=== PATIENT | male | born 1950 | race Caucasian/White ===

== ENCOUNTER → 2018-01-30 09:31 | Outpatient (CLI) | payer BC, SELFPAY ==
--- NOTE | 2018-01-30 09:53 | RAD_ITS ---
HISTORY: PRE-OP FOR SURGERY OCCURING IN MARCH EXAM: XR Chest 2 Views: COMPARISON: None FINDINGS: Normal heart size. Hyperinflation with increased retrosternal airspace compatible with COPD. No vascular congestion, pleural effusion, or acute pulmonary infiltration. Atherosclerotic thoracic aorta. No pneumothorax. RAD/Chest PA and Lateral IMPRESSION: 1. No acute cardiopulmonary disease. 2. COPD. at 0703 Reported and signed by: Andrew Molina MD Electronically Signed: Andrew Molina, at 7:01 EST Tel , Service support ,
--- NOTE | 2018-01-30 10:05 | EKG12_ITS ---
Test Reason : PREOP Blood Pressure : / mmHG Vent. Rate : 091 BPM Atrial Rate : 091 BPM P-R Int : 136 ms QRS Dur : 080 ms QT Int : 352 ms P-R-T Axes : 067 -30 035 degrees QTc Int : 432 ms Sinus rhythm with occasional Premature ventricular complexes Left axis deviation Abnormal ECG Confirmed by HANNA SERRATO, ERNA ([id number]), editor managing newspaper OMAR PHELAN ([id number]) on 02/03/2018 2:19:54 PM Referred By: Holden Phelan Confirmed By:ERNA FERREIRA MD
--- OUTSIDE RECORDS SUMMARY | 2018-03-27 04:49 | XMS RPT_ITS ---
:1950 Author Organization OHIP Care Team Providers Name Role Phone Rody Patel Attending Unavailable Andrew Hermosillo Referring Unavailable Andrew Hermosillo Primary Care Unavailable SHAUN DIAZ Attending Unavailable Andrew Hermosillo Referring Unavailable Andrew Hermosillo Primary Care Unavailable SHAUN DIAZ Attending Unavailable Andrew Hermosillo Referring Unavailable NadineanAndrew Primary Care Unavailable SHAUN DIAZ Attending Unavailable Andrew Hermosillo Referring Unavailable NadineanAndrew Primary Care Unavailable SHAUN DIAZ Attending Unavailable Andrew Hermosillo Referring Unavailable Jerryneran, Andrew Primary Care Unavailable Holden Phelan Attending Unavailable Holden Phelan Referring Unavailable Andrew Hermosillo Primary Care Unavailable Markel Ferreira Attending Unavailable Holden Phelan Referring Unavailable PROBLEMS PROBLEMS DATE TYPE CONDITION / CODE ATTENDING STATUS SOURCE Unknown Z79.899 - Other long Holden Phelan Active [place] 8 term (current) drug Community therapy / Hospital Z79.899(ICD-10) Repository Unknown Z01.811 - Encounter Holden Phelan Active [place] 8 for preprocedural [facility] examination / Repository Z01.811(ICD-10) Unknown R94.31 - Abnormal [place], Active [place] 8 electrocardiogram [facility] [ECG] [EKG] / Hospital R94.31(ICD-10) Repository Admitting Unil inguinal hernia, [facility] [place] 8 Diagnosis w/o obst or gangr, not M System spcf as recur / Repository K40.90(ICD-10) 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, unsp / Repository D21.6(ICD-10) Admitting Epidermal cyst / [facility] [place] 8 Diagnosis L72.0(ICD-10) M System Repository Admitting Unspecified [facility] [place] 8 Diagnosis osteoarthritis, M System unspecified site / Repository M19.90(ICD-10) Admitting Nicotine dependence, [facility] [place] 8 Diagnosis cigarettes, M System uncomplicated / Repository F17.210(ICD-10) Admitting Encounter for other [facility] [employer] Diagnosis preprocedural M System examination / Repository Z01.818(ICD-10) Admitting Follicular cyst of the [facility] [place] 8 Diagnosis skin and subcutaneous M System tissue, unsp / Repository L72.9(ICD-10) Admitting Right [facility] pain [facility] [place] [facility] Diagnosis / N50.811(ICD-10) System Repository Admitting Unspecified abdominal Rody Patel [place] 8 Diagnosis hernia without System obstruction or Repository gangrene / K46.9(ICD-10) PROCEDURES PROCEDURES No Procedure Records FoundRESULTS RESULTS 12 LEAD ELECTROCARDIOGRAM Observed: 02/03/2018 Status: F Source: [place] 2:20 PM [facility] REPOSITORY [facility] Cardiovascular Services [address] [place] [address] 12 Lead EKG 01/30/18 1012 MR#: [id number] Acct: [id number] Name: REGGIE PHELAN R Rep #: [id number] : 1950 67 From: Markel Ferreira MD Attending Dr: Holden Phelan MD Status: REG CLI Ordering Dr: Holden Phelan MD Date: 01/30/18 Location: [facility] Sex: M C Admitted: Test Reason : PREOP Blood Pressure : / mmHG Vent. Rate : 091 BPM Atrial Rate : 091 BPM P-R Int : 136 ms QRS Dur : 080 ms QT Int : 352 ms P-R-T Axes : 067 -30 035 degrees QTc Int : 432 ms Sinus rhythm with occasional Premature ventricular complexes Left axis deviation Abnormal ECG Confirmed by HANNA SERRATO, MARKEL ([id number]), manuscript editor OMAR PHELAN ([id number]) on 02/03/2018 2:19:54 PM Referred By: Holden Phelan Confirmed By:MARKEL FERREIRA MD 02/03/18 1419 Date Markel Ferreira MD CC: Andrew Hermosillo; Holden Phelan MD Signed CHEST PA AND LATERAL Observed: 01/30/2018 Status: F Source: [place] 9:53 AM [facility] REPOSITORY [facility] Imaging Services [address] [place] [address] Chest PA and Lateral MR#: [id number] Acct: [id number] Name: REGGIE PHELAN R Rep #: [id number] : 1950 M 67 From: Andrew Molina MD PCP: Andrew Hermosillo Status: REG CLI Study: Chest PA and Lateral Date of Exam: 01/30/18 Exam# [id number] Ordering Dr: Holden Phelan MD HISTORY: PRE-OP FOR SURGERY OCCURING IN MARCH EXAM: XR Chest 2 Views: COMPARISON: None FINDINGS: Normal heart size. Hyperinflation with increased retrosternal airspace compatible with COPD. No vascular congestion, pleural effusion, or acute pulmonary infiltration. Atherosclerotic thoracic aorta. No pneumothorax. RAD/Chest PA and Lateral IMPRESSION: 1. No acute cardiopulmonary disease. 2. COPD. at 0703 Reported and signed by: Andrew Molina MD Electronically Signed: Andrew Molina, at 7:01 EST Tel , Service support , CC: Andrew Hermosillo; Holden Phelan MD Tying In Machine Operator: Signed ALLERGIES ALLERGIES No Allergies Records FoundENCOUNTERS ENCOUNTERS ADMIT/DISCHARGE ACCOUNT NUMBER ADMITTING ENCOUNTER LOCATION SOURCE CLASS 01/30/2018 [id number] Ambulatory [facility] ding:[facility] Repository 01/30/2018 [id number] Ambulatory [facility] Repository 05/27/2017 [id number] Ambulatory [facility] Repository 05/20/2017 [id number] Ambulatory [facility] Repository 05/13/2017 [id number] [facility] RECRoom: System [id number]: Repository [id number] 05/06/2017 [id number] Ambulatory [facility] Repository 04/10/2017 [id number] Emergency [address] [place] [address] EDRoom: System [id number]: Repository [id number] PAYERS PAYERS ENCOUNTER GUARANTOR PAYER SUBSCRIBER SOURCE 01/30/2018 REGGIE [id number] Insurance:ANTHEMPolic MILLERDOB: [facility] y [place]: [id number] [id number] Repository [address]Vsa: 330) Date:0287-80-59PP [phone] () [id number], [place] [address]SM: 01/30/2018 Secondary NOT GIVENUNK [place] Insurance:SELF PAY [facility] Number: Effective Repository Date:2018-01-30 01/30/2018 REGGIE [id number] Insurance:ANTHEMPolic MILLERDOB: [facility] Number: [id number] [facility] [place] [id number] Repository [address]Vog: (330) Date:2704-88-66DI [phone] (HP) [id number], [place] [address]KA: 01/30/2018 Secondary NOT GIVENUNK [place] Insurance:SELF PAY [facility] Number: Effective Repository Date:2018-01-30 05/27/[address] [facility] Primary Sadaf Baker [facility] Health MillerDOB: Insurance:Nageezi Blue MillerDOB: System Cross Blue [id number] [facility] [place] Effective Date: [address]Vab: (HP) 05/20/[address] [facility] Primary Saadf Baker [facility] Health MillerDOB: Insurance:Nageezi Blue MillerDOB: System Cross Blue [id number] [facility] [place] Effective Date: [address]Ymi: (HP) 05/13/[address] [facility] MillerD[facility]: Insurance:Nageezi Blue MillerDOB: System Cross Blue [id number] Repository [facility] Number: [place], [place] Effective Date: [address]Lmz: (HP) 05/13/2017 Secondary [facility] Health Insurance:MedicarePol MillerDOB: System icy Number: Effective [id number] Repository Date:2016-08-01 05/06/[address] [facility] Primary [facility] MillerDOB: Insurance:Nageezi Blue MillerDOB: System Cross Blue [id number] [facility] [place] Effective Date: [address]Nhc: (HP) 05/06/2017 Secondary [facility] Health Insurance:MedicarePol MillerDOB: System icy Number: Effective [id number] Repository Date:2016-08-01 04/10/[address] [facility] Primary [facility] MillerDOB: [facility] [id number] Mango Moser [id number] Repository [facility] Number: THIAGO Kwan Effective Date: [address]Opu: () 04/10/2017 Secondary [facility] Insurance:MedicarePol MillerDOB: System icy Number: Effective [id number] Repository Date:2016-08-01
== END ==
PROVIDERS: Family Provider Family Medicine; PCP Family Medicine; Referring Provider Orthopaedic Surgery; Visit Provider Orthopaedic Surgery
DX: Z01.811 Encounter for preprocedural respiratory examination (principal); Z79.899 Other long term (current) drug therapy
CPT/HCPCS: 71046; 93005

== ENCOUNTER → 2018-06-17 15:46 | Outpatient (CLI) | payer OTHER, SELFPAY ==
--- NOTE | 2018-06-17 15:51 | VDLE_ITS ---
Reason For Study: LEG PAIN RIGHT LEFT GSV is normal. CFV is compressible, spontaneous, phasic, CFV is compressible, spontaneous, phasic, competent, and demonstrates normal competent and demonstrates normal augmentation. augmentation. FV is compressible, spontaneous, phasic, competent and demonstrates normal augmentation. POP V is compressible, spontaneous, phasic, competent and demonstrates normal augmentation. T/P Trunk is compressible. PTV is compressible. RT PerV is compressible. Procedure Exam performed in department. A preliminary report was called and/or faxed to Corey Hernandez. Interpretation Summary Deep veins of the right lower extremity are patent and compressible segmentally. There is no evidence of right lower extremity deep vein thrombosis. Valvular competence appears intact within the proximal deep venous system on the right . The right greater saphenous vein appears patent and compressible segmentally. Ordering Physician: Sugar Hernandez Referring Physician: Andrew Hermosillo Performed By: Kimberly Anderson RVT
== END ==
PROVIDERS: Family Provider Family Medicine; PCP Family Medicine; Referring Provider Physician Assistant; Visit Provider Physician Assistant
DX: M79.604 Pain in right leg (principal)
CPT/HCPCS: 93971

== ENCOUNTER 2021-01-19 12:16 | Emergency (ER) | payer MEDICARE, BC, SELFPAY ==
[2021-01-19 12:17] VITALS: BP 113/86; PULSE 100; RESP 18; TEMP 36.4; O2SAT 98; BMI 21.7
--- NOTE | 2021-01-19 14:02 | VDLE_ITS ---
Reason For Study: Swelling RIGHT LEFT CFV is compressible, spontaneous, phasic, GSV is normal. competent and demonstrates normal CFV is compressible, spontaneous, phasic, augmentation. competent, and demonstrates normal Procedure augmentation. This is a venous duplex using B-mode, color Lt FV, Lt PopV, Lt T/P Trunk, Lt GastrocV, Lt flow and spectral Doppler. PTV, and Lt PeroV are dilated and non Exam performed portable in ED. compressible consistent with acute DVT A preliminary report was called and/or faxed to Dr. Sharp. Lt SSV is dilated and non compressible consistent with acute SVT. VL/Venous Duplex US, Unilateral Interpretation Summary Acute deep venous thrombosis left femoral, popliteal, tibioperoneal trunk, ganesh rocnemius, posterior tibial, and peroneal veins. Superficial thrombophlebitis left small saphenous vein Patent and compressible left great saphenous vein Normal flow patterns right common femoral vein Ordering Physician: Zane Sharp Referring Physician: Andrew Hermosillo Performed By: Jacinta Duran, EMILIA, RVT
--- NOTE | 2021-01-19 14:02 | EKG12_ITS ---
Test Reason : EDEMA Blood Pressure : / mmHG Vent. Rate : 078 BPM Atrial Rate : 078 BPM P-R Int : 136 ms QRS Dur : 082 ms QT Int : 384 ms P-R-T Axes : 067 019 042 degrees QTc Int : 437 ms Normal sinus rhythm Normal ECG Confirmed by LUANN SERRATO, LEON ([id number]), technical editor IVORY WISDOM ([id number]) on 01/22/2021 1:19:04 PM Referred By: MARICEL Confirmed By:LEON KONG MD
[2021-01-19 14:32] LABS: Absolute Lymphocyte Count 1.66 X10^3/uL (0.83-4.51); Absolute Neutrophil Count 5.3 X10^3/uL (2.0-7.7); Basophil# 0.05 X10^3/uL; Basophil% 0.7 % (0-1); Eosinophil# 0.01 X10^3/uL; Eosinophils% 0.1 % (0-5); Hemoglobin 13.5 g/dL (13.0-16.5); Lymphocyte # 1.66 X10^3/ul (0.83-4.51); Lymphocyte % 21.8 % (19-41); Mean Corp Hgb Conc 33.8 g/dL (32-36); Mean Corpuscular Hgb 32.4 pg (27.0-32.0); Mean Corpuscular Volume 95.9 fL (80-94); Mean Platelet Vol. 9.7 fl (6.2-12.0); Monocyte# 0.51 X10^3/uL; Monocyte% 6.7 % (0-10); NRBC Flagged by Analyzer 0 % (0-5); Neutrophil # 5.33 X10^3/uL (2.7-7.7); Neutrophil % 69.9 % (47-70); Platelet Count 235 K/mm3 (150-450); RBC Distribution Width SD 56.2 fl (35.1-43.9); Red Blood Count 4.17 M/mm3 (4.6-6.2); White Blood Count 7.6 K/mm3 (4.4-11.0)
--- NOTE | 2021-01-19 14:42 | EX.ED.DYSGE1 ---
HPI History of Present Illness Chief Complaint: Edema Informant: patient and spouse/S.O. Onset/Context/Timing Onset: Weeks Context: Gradual Onset Timing: Continuous Quality: Swelling left lower extremity Current Severity: Moderate Maximum Severity: Moderate Worsened by: Nothing Relieved by: Nothing Associated Symptoms Associated Symptoms: Nothing Narrative Narrative: Patient is a 70-year-old male on no medications who admits to smoking half pack per day presently. He did smoke more in the past. He also drinks daily. He denies liver problems. He denies change in the color of his urine or stool. He denies problems with his stream. He denies dyspnea on exertion, orthopnea or PND. He has no known coronary disease. He has not seen a doctor since his knees were operated on several years ago. He denies drug use. He denies night sweats, unintentional weight loss or bone pain. He denies history of VTE. He does endorse bruising easily. He denies increased abdominal girth. He has no risk factors for VTE. There is no difference in the swelling when he goes to bed compared to when he awakes. Prior similar symptoms: No Recent Illness/Hospitalization: No PFSH PFSH Medical History (Updated 01/19/21 @ 15:[address] Zane Sharp MD) Diarrhea SOB (shortness of breath) Medical History no medical history no medical history Home Medications apixaban [Eliquis] 5 mg PO BID #74 tab 01/19/21 [Rx Last Taken Unknown] Allergy/AdvReac Type Severity Reaction Status Date / Time No Known Allergies Allergy Verified 01/19/21 12:18 Family History Other Dementia Heart disease Surgical History History of bilateral knee replacement History of hernia surgery Social History (Updated 01/19/21 @ 14:[address] Zane Sharp MD) household members: spouse Smoking Status: Current every day smoker tobacco type: cigarettes alcohol intake: current alcohol intake frequency: 3 or more drinks per day substance use type: does not use ROS ROS ED Constitutional Constitutional ED: Denies chills, fever(s), subjective, sweats or weight loss Eyes Eyes: Denies blurry vision, change in vision or diplopia ENT ENT ED: Denies ear pain, rhinorrhea or sore throat Cardiovascular Cardiovascular: Denies chest pain, orthopnea, palpitations, paroxysmal nocturnal dyspnea or racing heartbeat Respiratory/Chest Respiratory/Chest: Denies cough, dyspnea, dyspnea on exertion, orthopnea or paroxysmal nocturnal dyspnea Gastrointestinal Gastrointestinal: Denies abdominal pain, constipation, diarrhea, melena, nausea or vomiting Genitourinary Genitourinary ED: Denies dysuria, hematuria or urinary frequency Musculoskeletal Musculoskeletal: Denies arthralgias, back pain or myalgias Integumentary Denies rash Neurologic Neurologic: Denies headache(s), paresthesias or weakness Endocrine Endocrinology: Denies polydipsia, polyphagia or polyuria Hematologic/Lymphatic Hematologic/Lymphatic: Reports easy bruising; Denies anemia Allergic/Immunologic Allergic/Immunologic ED: Denies mouth swelling, tongue swelling or urticaria EXAM Physical Exam Const Vital Signs: 01/19/21 12:17 01/19/21 13:24 Temperature 97.6 F L Temperature Source Temporal Pulse Rate 100 Respiratory Rate 18 Respiratory Effort Normal Non-Labored Respiratory Pattern Normal Blood Pressure 113/86 H Blood Pressure Mean 95 Pulse Ox 98 Oxygen Delivery Method Room Air Positive well nourished and well developed; Negative for obese, cachectic, contractures or unkempt General Appearance ED: well developed and NAD; Negative for unkempt, cachectic, contractures or pallor Nutritional Appearance: Negative for cachectic or obese HEENT Reports TM's clear and moist mucous membranes; Denies dry mucous membranes Negative for trauma or tenderness Tympanic Membrane ED: Yes TM's clear Mouth ED: No dry mucous membranes Mouth: No dry mucous membranes Eyes PERRL and EOMs intact bilaterally General Eye ED: Negative for pale conjunctiva or scleral icterus Neck no lymphadenopathy, supple and no JVD General: Negative for tenderness Chest Wall inspection of chest normal Resp normal respiratory effort and clear to auscultation bilaterally Effort and Inspection: Negative for pain with movement Cardio regular rate, regular rhythm, S1 normal heart sound, S2 normal heart sound and no murmurs GI normal to inspection, nondistended, normoactive bowel sounds, non-tender and non-distended; Negative for hepatosplenomegaly Palpation: soft Back/Spine no CVA tenderness Cervical Spine: Negative for cervical spine tenderness Thoracic Spine / Upper Back: Negative for thoracic spinal tenderness Lumbar Spine / Lower Back: Negative for lumbar spinal tenderness Extremity Negative for normal to inspection Extremity Narrative: Unilateral edema. No discoloration, no leg vein distention, no palpable cords and no tenderness on the distribution deep venous system. General Extremety ED: Yes edema; Negative for tenderness General Extremity: edema Neuro oriented x3 and CN's II-XII intact bilaterally Sensorium / Orientation: alert Motor Exam: strength 5/5 throughout Psych mental status grossly normal Appearance: Negative for unkempt Skin no rashes or lesions noted and no wounds General Skin Exam: Negative for jaundice or pallor MDM MDM MDM Narrative Medical decision making narrative: Patient presents with unilateral atraumatic left leg swelling. There is mild edema of the low lower right extremity as well. Differential diagnosis would be malignancy, DVT, congestive heart failure, liver disease. Because of decreased breath sounds on the left chest x-ray was obtained. Additionally EKG was obtained rule out evidence of cardiac ischemia or LVH. [facility] blood work was ordered. Venous duplex study reveals a DVT from the proximal femoral to the ankle. Patient was informed of his test results. He was informed that he will need to take a blood thinner and will need to take a blood thinner for the rest of his life. He was explained options which included Coumadin, Eliquis and Xarelto. After explaining risk benefits and concerns he chose Eliquis. He received his first dose in the emergency department. Lab Data Attestation: I reviewed the patient's lab results. Lab results narrative: CBC is unremarkable. PT/INR is normal. Comprehensive metabolic panel reveals slight elevation of total bili at 1.8. AST and ALT are elevated due to alcohol consumption. BNP is slightly mid 138 and is not significant Labs: Laboratory Results - last 24 hr 01/19/21 01/19/21 01/19/21 14:23 14:23 14:23 WBC 7.6 RBC 4.17 L Hgb 13.5 Hct 40.0 MCV 95.9 H MCH 32.4 H MCHC 33.8 RDW Std Deviation 56.2 H RDW Coeff of Bartolome 16.0 H Plt Count 235 MPV 9.7 Immature Gran % (Auto) 0.800 Neut % (Auto) 69.9 Lymph % (Auto) 21.8 [place] % (Auto) 6.7 Eos % (Auto) 0.1 Baso % (Auto) 0.7 Absolute Neuts (auto) 5.3 Absolute Lymphs (auto) 1.66 Nucleated RBC % 0 PT 12.9 INR 1.0 Sodium 139 Potassium 4.0 Chloride 107 Carbon Dioxide 30.0 Anion Gap 2 L BUN 13 Creatinine 0.94 Estim Creat Clear Calc 76.33 Est GFR (MDRD) Af Amer 102 Est GFR (MDRD) Non-Af 84 BUN/Creatinine Ratio 13.8 Glucose 77 Calcium 8.6 Total Bilirubin 1.80 H AST 55 H ALT 73 H Alkaline Phosphatase 100 B-Natriuretic Peptide Total Protein 5.8 L Albumin 2.3 L Globulin 3.5 Albumin/Globulin Ratio 0.7 L 01/19/21 14:23 WBC RBC Hgb Hct MCV MCH MCHC RDW Std Deviation RDW Coeff of Bartolome Plt Count MPV Immature Gran % (Auto) Neut % (Auto) Lymph % (Auto) [place] % (Auto) Eos % (Auto) Baso % (Auto) Absolute Neuts (auto) Absolute Lymphs (auto) Nucleated RBC % PT INR Sodium Potassium Chloride Carbon Dioxide Anion Gap BUN Creatinine Estim Creat Clear Calc Est GFR (MDRD) Af Amer Est GFR (MDRD) Non-Af BUN/Creatinine Ratio Glucose Calcium Total Bilirubin AST ALT Alkaline Phosphatase B-Natriuretic Peptide 138.6 H Total Protein Albumin Globulin Albumin/Globulin Ratio Radiography Chest X-Ray - ED: 2 View, Read by ED Physician (2 view chest x-ray interpreted by me at 1500), Normal, Heart, Lungs, Mediastinum, Bony Structures, No Acute Disease and Chronic Changes Diagnostic Testing: Clinical Impression(s) from Imaging Studies Chest X-Ray 01/19/21 14:52 IMPRESSION: Hyperinflation. The lungs are clear. Electronically Signed: Haris Dalton MD at 15:05 EST , Service support , EKG Initial EKG: Attestation: I personally reviewed and interpreted this EKG as follows: Interpretation: Sinus Rhythm (Normal sinus rhythm. EKG is normal. Ventricular rate 78. WA interval is 136 ms. QRS durations 82 ms. QT interval is 384 ms. [place] is normal.) Discharge Plan Triage Chief Complaint: Edema ED Provider: Zane Sharp Dx/Rx/DC Orders Clinical Impression: DVT, femoral, acute Instructions: DVT Dc Prescriptions: New Eliquis 5 MG tablet 5 mg PO BID Qty: 74 RF: 0 Primary Care Provider: Care Physician,No Primary Referrals: Earl Becker MD [STAFF PHYSICIAN] - 1-2 Weeks (Unprovoked DVT left lower extremity femoral vein to ankle) Care Physician,No Primary [Primary Care Provider] - Disposition Disposition: Home, Self Care
[2021-01-19 14:45] LABS: Prothrombin Time (Protime)PT. 12.9 SECONDS (11.7-14.9)
[2021-01-19 14:50] LABS: ALB/GLOB Ratio 0.7 RATIO (0.9-2.4); AST(SGOT) 55 U/L (15-37); Alanine Aminotransfer ALT/SGPT 73 U/L (16-61); Albumin, Serum 2.3 g/dL (3.2-5.0); Alkaline Phosphatase 100 U/L (45-117); Anion Gap 2 (5-15); BUN 13 mg/dL (7-18); BUN/Creat Ratio 13.8 RATIO (10-20); Calcium,Total 8.6 mg/dL (8.5-10.1); Chloride 107 mmol/L (98-107); Creatinine, Serum 0.94 mg/dL (0.70-1.30); EST Glomerular Filtration Rate 84 mL/min (>60); Est Glom Filt Rate - Afr Amer 102 mL/min (>60); Estimated Creatinine Clearance 76.33 ml/min; Globulin 3.5 g/dL (2.2-4.2); Glucose 77 mg/dL (74-106); Protein, Total 5.8 g/dL (6.4-8.2); Sodium Level 139 mmol/L (136-145)
[2021-01-19 14:51] LABS: BNP,B-Type NATRIURETIC PEPTIDE 138.6 pg/mL (0-100)
--- NOTE | 2021-01-19 14:52 | RAD_ITS ---
STUDY: X-RAY CHEST REASON FOR EXAM: Male, 70 years old. Decreased BS left lymphedema TECHNIQUE: PA and lateral views of the chest. COMPARISON: Comparison is made with prior study dated 01/30/2018. FINDINGS: EKG electrodes are seen. There is hyperinflation of the lungs consistent with chronic obstructive lung disease (COPD). There is no demonstrated pleural abnormality. Normal size heart. Normal mediastinum and sharon. Normal visualized pulmonary arteries. There is atherosclerotic calcification of the aortic arch with tortuosity. There are degenerative changes of the visualized thoracic spine. Normal visualized ribs, clavicles, and shoulders. There is no demonstrated abnormality of the visualized soft tissue structures of the upper abdomen. RAD/Chest PA and Lateral IMPRESSION: Hyperinflation. The lungs are clear. Electronically Signed: Haris Dalton MD at 15:05 EST , Service support ,
[2021-01-19] MEDS: APIXABAN 5 MG TABLET 10 MG PO (16:44)
[2021-01-19 16:46] VITALS: PULSE 98; RESP 17; O2SAT 98
== END 2021-01-19 16:47 | disposition home or self-care (01) ==
PROVIDERS: Emergency Provider Emergency Medicine
DX: I82.412 Acute embolism and thrombosis of left femoral vein (principal); F17.210 Nicotine dependence, cigarettes, uncomplicated; Z79.01 Long term (current) use of anticoagulants
CPT/HCPCS: 71046; 80053; 83880; 85025; 85610; 93005; 93971; 99285; A4216

== ENCOUNTER → 2021-02-01 12:02 | Outpatient (CLI) | payer MEDICARE, BC, SELFPAY ==
[2021-02-01 15:40] LABS: ALB/GLOB Ratio 0.6 RATIO (0.9-2.4); AST(SGOT) 62 U/L (15-37); Alanine Aminotransfer ALT/SGPT 70 U/L (16-61); Albumin, Serum 2.4 g/dL (3.2-5.0); Alkaline Phosphatase 70 U/L (45-117); Anion Gap 5 (5-15); BUN 13 mg/dL (7-18); BUN/Creat Ratio 15.4 RATIO (10-20); Calcium,Total 9.7 mg/dL (8.5-10.1); Chloride 106 mmol/L (98-107); Creatinine, Serum 0.84 mg/dL (0.70-1.30); EST Glomerular Filtration Rate 96 mL/min (>60); Est Glom Filt Rate - Afr Amer 116 mL/min (>60); Glucose 78 mg/dL (74-106); Lipase 243 U/L (73-393); PSA,Total - Annual Screen 0.46 ng/mL (0.00-4.00); Potassium 5.7 mmol/L (3.5-5.1); Protein, Total 6.4 g/dL (6.4-8.2); Sodium Level 140 mmol/L (136-145)
== END ==
LOC: BIMLAB 12:04
PROVIDERS: PCP Internal Medicine; Referring Provider Internal Medicine; Visit Provider Internal Medicine
DX: R79.89 Other specified abnormal findings of blood chemistry (principal); Z12.5 Encounter for screening for malignant neoplasm of prostate
CPT/HCPCS: 36415; 80053; 83690; 84153; G0103

== ENCOUNTER 2021-03-08 09:16 | Outpatient (CLI) | payer MEDICARE, BC, SELFPAY ==
--- NOTE | 2021-03-08 09:23 | US_ITS ---
STUDY: ABDOMINAL ULTRASOUND - RIGHT UPPER QUADRANT REASON FOR VISIT: Male, 70 years old Elevated lfts TECHNIQUE: Ultrasound evaluation of the right upper quadrant was performed with real-time and static bowers-scale imaging. TECHNICAL QUALITY: Adequate. COMPARISON: None. FINDINGS: Liver: The liver measures 17.2 cm. There is mild increased echogenicity consistent with mild fatty infiltration. The bile ducts are within normal limits. There is hepatic color flow. The direction of portal flow is hepatopetal. There is no demonstrated mass lesion. Gallbladder: Normal distended gallbladder. The gallbladder wall measures 2.5 mm. There is a negative sonographic Lopes''s sign. There is no pericholecystic fluid. There are no gallstones. Common Bile Duct (C.B.D.): The common bile duct measures 3.4 mm. Pancreas: There is nonvisualization of the pancreas due to overlying bowel gas. Right Kidney: Normal size of the right kidney. The right kidney measures 10.4 cm x 6.1 cm x 4.4 cm. Normal renal cortex. The right cortex measures 1.3 cm. There is no demonstrated renal mass or cyst. There is no right hydronephrosis. US/Abdomen Limited IMPRESSION: Mild degree of fatty infiltration of the liver. Electronically Signed: Haris Dalton MD at 11:57 EST , Service support ,
== END 2021-03-08 23:59 | disposition short-term general hospital (02) ==
LOC: US 09:22
PROVIDERS: PCP Internal Medicine; Referring Provider Internal Medicine
DX: K76.0 Fatty (change of) liver, not elsewhere classified (principal); R94.5 Abnormal results of liver function studies
CPT/HCPCS: 76705

== ENCOUNTER 2022-11-16 14:18 | Inpatient (IN) | payer MEDICARE, BC, SELFPAY ==
[2022-11-16] VITALS (8 sets, daily range): BP systolic 109–145; BP diastolic 74–116; PULSE 62–142; RESP 18–25; TEMP 36–36.8; O2SAT 91–98; BMI 23.8; BMI 22.0
--- NOTE | 2022-11-16 14:32 | EKG12_ITS ---
Test Reason : SOB Blood Pressure : / mmHG Vent. Rate : 151 BPM Atrial Rate : 150 BPM P-R Int : 000 ms QRS Dur : 076 ms QT Int : 328 ms P-R-T Axes : 000 093 263 degrees QTc Int : 519 ms Critical Test Result: High HR Atrial fibrillation Rightward axis Septal infarct , age undetermined Abnormal ECG Confirmed by BAYRON SERRATO, JESS ([id number]), fashion editor ZACKARY GOOD ([id number]) on 11/19/2022 11:43:21 AM Referred By: Confirmed By:OLIVE VERMA MD
--- NOTE | 2022-11-16 14:43 | EX.ED.DYSGE1 ---
HPI <JOHNATHAN Ford - Last Filed: 11/16/22 20:20> History of Present Illness Chief Complaint: Shortness of Breath Narrative Narrative: Patient presenting today due to shortness of breath on exertion that he has had over the past week that has progressively worsened over the past 3 to 4 days. He reports that he only has to walk a short distance before he begins to feel short of breath. He also reports that he has had a productive cough that has been worse over the past few days. Patient is a smoker and smokes a half pack per day. He denies a history of COPD or asthma but has not been tested in several years. He denies any fever, chills, abdominal pain, nausea, vomiting, chest pain. PFSH <JOHNATHAN Ford - Last Filed: 11/16/22 20:20> [facility] Medical History (Updated 11/16/22 @ 20:20 by JOHNATHAN Ford) Arthritis Diarrhea DVT (deep venous thrombosis) SOB (shortness of breath) Home Medications apixaban 5 mg tablet (Eliquis) 5 mg PO BID #60 tabs 02/20/21 [Rx Last Taken Unknown] Allergy/AdvReac Type Severity Reaction Status Date / Time No Known Allergies Allergy Verified 11/16/22 14:20 Family History Other Arthritis Dementia Heart disease Hypertension Surgical History (Updated 11/16/22 @ 19:50 by Genoveva Zelaya) History of bilateral knee replacement History of hernia surgery Social History household members: spouse Smoking Status: Current every day smoker tobacco type: cigarettes Tobacco: How many years used: 15 alcohol intake: current alcohol intake frequency: 3 or more drinks per day substance use type: does not use what type of physical activity do you participate in: none ROS <JOHNATHAN Ford - Last Filed: 11/16/22 20:20> ROS ED Constitutional Constitutional ED: Denies chills or fever(s) Eyes Eyes: Denies blurry vision Cardiovascular Cardiovascular: Denies chest pain Respiratory/Chest Respiratory/Chest: Reports cough and dyspnea on exertion; Denies tachypnea or wheezing Gastrointestinal Gastrointestinal: Denies abdominal pain, nausea or vomiting Musculoskeletal Musculoskeletal: Denies arthralgias or myalgias Integumentary Denies rash Neurologic Neurologic: Denies paresthesias or weakness EXAM <JOHNATHAN Ford - Last Filed: 11/16/22 20:20> Physical Exam Const Vital Signs: 11/16/22 14:19 11/16/22 14:49 11/16/22 14:50 Temperature 96.8 F L Temperature Source Temporal Pulse Rate 62 Respiratory Rate 20 H Respiratory Effort Short of Breath Blood Pressure 145/116 H Blood Pressure Mean 125 Pulse Ox 91 Oxygen Delivery Method Room Air Room Air 11/16/22 14:59 11/16/22 15:44 11/16/22 18:45 Temperature 98.3 F Temperature Source Temporal Pulse Rate 107 H 124 H 121 H Respiratory Rate 25 H 24 H Respiratory Effort Blood Pressure 109/88 H 128/102 H Blood Pressure Mean 95 110 Pulse Ox 98 95 Oxygen Delivery Method Room Air Room Air 11/16/22 17:00 Temperature Temperature Source Pulse Rate Respiratory Rate Respiratory Effort Blood Pressure 126/74 H Blood Pressure Mean 91 Pulse Ox Oxygen Delivery Method Positive well nourished, well developed and no apparent distress General Appearance ED: well developed HEENT Reports normocephalic and head/scalp atraumatic Mouth ED: Yes moist mucous membranes normal Eyes PERRL and EOMs intact bilaterally Neck full ROM and supple Chest Wall inspection of chest normal Resp normal respiratory effort and clear to auscultation bilaterally Cardio regular rate and regular rhythm GI soft to palpation, non-tender, non-distended and no masses Back/Spine normal ROM and normal to inspection Extremity full ROM Extremity Narrative: Bilateral lower extremity edema below the knees. Neuro oriented x3, CN's II-XII intact bilaterally, moves all extremities, no focal motor deficits and no sensory deficits noted Sensorium / Orientation: awake and alert Psych mental status grossly normal and thought process normal Skin no rashes or lesions noted and no wounds <Dr. sOmin Altamirano MD - Last Filed: 11/16/22 21:42> Physical Exam Const Vital Signs: 11/16/22 14:19 11/16/22 14:49 11/16/22 14:50 Temperature 96.8 F L Temperature Source Temporal Pulse Rate 62 Respiratory Rate 20 H Respiratory Effort Short of Breath Blood Pressure 145/116 H Blood Pressure Mean 125 Pulse Ox 91 Oxygen Delivery Method Room Air Room Air 11/16/22 14:59 11/16/22 15:44 11/16/22 18:45 Temperature 98.3 F Temperature Source Temporal Pulse Rate 107 H 124 H 121 H Respiratory Rate 25 H 24 H Respiratory Effort Blood Pressure 109/88 H 128/102 H Blood Pressure Mean 95 110 Pulse Ox 98 95 Oxygen Delivery Method Room Air Room Air 11/16/22 17:00 Temperature Temperature Source Pulse Rate Respiratory Rate Respiratory Effort Blood Pressure 126/74 H Blood Pressure Mean 91 Pulse Ox Oxygen Delivery Method [facility] <JOHNATHAN Ford - Last Filed: 11/16/22 20:20> [facility] Narrative Medical decision making narrative: Patient presenting due to shortness of breath and a cough that he has had over the past week that acutely worsened 3 to 4 days ago. He does have a history of tobacco use and smokes about half pack per day, he reports that he does have a chronic cough but this has been worse. Patient is nontoxic-appearing. He is slightly tachypneic and hypoxic at 91% on room air. Labs will be obtained to rule out leukocytosis, anemia, electrolyte abnormality, and ACS. Chest x-ray will be obtained to rule out infiltrate, pleural effusion, pneumothorax, and other cardiopulmonary abnormality. Patient does appear to have a small pleural effusion. Patient's EKG is consistent with atrial flutter. Patient denies having a history of this. He was given a dose of Cardizem due to having a heart rate of 151 bpm. On reexamination his heart rate is 124, on the monitor he appears to be in A-fib. he does have prior history of DVT and was told that he needed to be on anticoagulants for life but stopped taking them. There are concerns for PE causing his shortness of breath, CTA of the chest obtained to rule this out. Patient does have bilateral PEs without right-sided heart strain. Radiologist did call back and request that an additional CTA be obtained to take a better look at the aorta, this was obtained and it does look like patient may have thrombosis of the inferior vena cava and left iliac vein. He has been started on a heparin drip. He remains slightly tachypneic and tachycardic around 110 bpm. I spoke with the hospitalist and he will be admitted in stable condition, he is comfortable with plan. Lab Data Attestation: I reviewed the patient's lab results. Labs: Laboratory Results - last 24 hr 11/16/22 11/16/22 14:45 17:47 WBC 10.3 RBC 4.31 L Hgb 14.4 Hct 45.3 MCV 105.1 H MCH 33.4 H MCHC 31.8 L RDW Std Deviation 54.4 H RDW Coeff of Bartolome 13.9 Plt Count 326 MPV 10.3 Immature Gran % (Auto) 0.700 Neut % (Auto) 73.0 H Lymph % (Auto) 16.0 L Jewell % (Auto) 9.3 Eos % (Auto) 0.2 Baso % (Auto) 0.8 Absolute Neuts (auto) 7.5 Absolute Lymphs (auto) 1.65 Nucleated RBC % 0 PT 14.4 INR 1.1 APTT 27.6 Sodium 136 Potassium 4.0 Chloride 108 H Carbon Dioxide 21.0 Anion Gap 7 BUN 23 H Creatinine 1.04 Estim Creat Clear Calc 65.15 Est GFR (MDRD) Af Amer 91 Est GFR (MDRD) Non-Af 75 BUN/Creatinine Ratio 22.1 H Glucose 159 H Calcium 9.4 Troponin I High Sens 26 B-Natriuretic Peptide 263.7 H Radiography X-Ray: Read by ED Physician and Read by Radiologist Diagnostic Testing: Clinical Impression(s) from Imaging Studies Chest X-Ray 11/16/22 15:02 IMPRESSION: Hyperexpanded lungs with development of bilateral pleural effusions and bibasilar atelectasis since the previous study. Electronically Signed: Myron Baldwin MD at 15:14 EDT Reading Location ID and State: [address] [place] [address] , Service support , Chest CTA 11/16/22 15:46 IMPRESSION: Extensive bilateral pulmonary emboli as described above with no evidence of right-sided cardiac strain. Multifocal pneumonitis. Sequela of pneumonitis versus mass identified in the left upper lobe, follow-up recommended following treatment in 2-3 months to document resolution. Abnormal enhancement of the aortic arch which could represent artifact however, cannot entirely exclude focal dissection. Given diffuse ectasia/mild aneurysmal dilatation throughout the remainder of the aorta, recommend follow-up with CT angiogram dedicated specifically to evaluate aorta with adequate contrast enhancement and exclude dissection. Electronically Signed: Ora Cheng MD at 16:35 EDT Reading Location ID and State: [employer] / [employer] , Service support , ADDENDUM: 11/16/22 1656 IMPRESSION: Extensive bilateral pulmonary emboli as described above with no evidence of right-sided cardiac strain. Multifocal pneumonitis. Sequela of pneumonitis versus mass identified in the left upper lobe, follow-up recommended following treatment in 2-3 months to document resolution. Abnormal enhancement of the aortic arch which could represent artifact however, cannot entirely exclude focal dissection. Given diffuse ectasia/mild aneurysmal dilatation throughout the remainder of the aorta, recommend follow-up with CT angiogram dedicated specifically to evaluate aorta with adequate contrast enhancement and exclude dissection. N.B. : The above Results were Read Back by Ora Cheng MD to Osmin Altamirano MD, and understanding confirmed on 11/16/2022 16:49:52 (ET). Electronically Signed: Ora Cheng MD at 16:35 EDT Reading Location ID and State: [employer] , Service support , Chest/Abdomen/Pelvis CTA 11/16/22 16:49 IMPRESSION: Irregularity in the enhancement pattern through the aortic arch, likely representing artifact given . Atherosclerosis of aorta with borderline mild aneurysmal dilatation through the descending thoracic aorta. Remainder of the aorta is unremarkable. Likely thrombosis of the inferior vena cava and at least left common iliac vein, follow-up with ultrasound evaluation can help if clinically indicated. Bilateral multifocal pneumonitis and pleural effusions. Left lower lobe apical nodule with questionable mass versus pneumonitis in the left upper lobe. Follow-up CT chest in 2-3 months recommended to evaluate resolution. Left adrenal nodule incompletely characterize. If indicated, this can be assessed with MRI or CT, adrenal mass protocol. Electronically Signed: Ora Cheng MD at 18:09 EDT Reading Location ID and State: [employer] / [employer] , Service support , EKG Initial EKG: Comments: 151 bpm, atrial flutter, no ST elevation, reviewed and interpreted by attending ED physician. <Dr. Osmin Altamirano MD - Last Filed: 11/16/22 21:42> [facility] Lab Data Labs: Laboratory Results - last 24 hr 11/16/22 11/16/22 14:45 17:47 WBC 10.3 RBC 4.31 L Hgb 14.4 Hct 45.3 MCV 105.1 H MCH 33.4 H MCHC 31.8 L RDW Std Deviation 54.4 H RDW Coeff of Bartolome 13.9 Plt Count 326 MPV 10.3 Immature Gran % (Auto) 0.700 Neut % (Auto) 73.0 H Lymph % (Auto) 16.0 L Jewell % (Auto) 9.3 Eos % (Auto) 0.2 Baso % (Auto) 0.8 Absolute Neuts (auto) 7.5 Absolute Lymphs (auto) 1.65 Nucleated RBC % 0 PT 14.4 INR 1.1 APTT 27.6 Sodium 136 Potassium 4.0 Chloride 108 H Carbon Dioxide 21.0 Anion Gap 7 BUN 23 H Creatinine 1.04 Estim Creat Clear Calc 65.15 Est GFR (MDRD) Af Amer 91 Est GFR (MDRD) Non-Af 75 BUN/Creatinine Ratio 22.1 H Glucose 159 H Calcium 9.4 Troponin I High Sens 26 B-Natriuretic Peptide 263.7 H Radiography Diagnostic Testing: Clinical Impression(s) from Imaging Studies Chest X-Ray 11/16/22 15:02 IMPRESSION: Hyperexpanded lungs with development of bilateral pleural effusions and bibasilar atelectasis since the previous study. Electronically Signed: Myron Baldwin MD at 15:14 EDT , Chest CTA 11/16/22 15:46 IMPRESSION: Extensive bilateral pulmonary emboli as described above with no evidence of right-sided cardiac strain. Multifocal pneumonitis. Sequela of pneumonitis versus mass identified in the left upper lobe, follow-up recommended following treatment in 2-3 months to document resolution. Abnormal enhancement of the aortic arch which could represent artifact however, cannot entirely exclude focal dissection. Given diffuse ectasia/mild aneurysmal dilatation throughout the remainder of the aorta, recommend follow-up with CT angiogram dedicated specifically to evaluate aorta with adequate contrast enhancement and exclude dissection. Electronically Signed: Ora Cheng MD at 16:35 EDT Reading Location ID and State: [employer] / [place] , Service support , ADDENDUM: 11/16/22 1656 IMPRESSION: Extensive bilateral pulmonary emboli as described above with no evidence of right-sided cardiac strain. Multifocal pneumonitis. Sequela of pneumonitis versus mass identified in the left upper lobe, follow-up recommended following treatment in 2-3 months to document resolution. Abnormal enhancement of the aortic arch which could represent artifact however, cannot entirely exclude focal dissection. Given diffuse ectasia/mild aneurysmal dilatation throughout the remainder of the aorta, recommend follow-up with CT angiogram dedicated specifically to evaluate aorta with adequate contrast enhancement and exclude dissection. N.B. : The above Results were Read Back by Ora Cheng MD to Osmin Altamirano MD, and understanding confirmed on 11/16/2022 16:49:52 (ET). Electronically Signed: Ora Cheng MD at 16:35 EDT Reading Location ID and State: [id number] / [employer] , Service support , Chest/Abdomen/Pelvis CTA 11/16/22 16:49 IMPRESSION: Irregularity in the enhancement pattern through the aortic arch, likely representing artifact given . Atherosclerosis of aorta with borderline mild aneurysmal dilatation through the descending thoracic aorta. Remainder of the aorta is unremarkable. Likely thrombosis of the inferior vena cava and at least left common iliac vein, follow-up with ultrasound evaluation can help if clinically indicated. Bilateral multifocal pneumonitis and pleural effusions. Left lower lobe apical nodule with questionable mass versus pneumonitis in the left upper lobe. Follow-up CT chest in 2-3 months recommended to evaluate resolution. Left adrenal nodule incompletely characterize. If indicated, this can be assessed with MRI or CT, adrenal mass protocol. Electronically Signed: Ora Cheng MD at 18:09 EDT Reading Location ID and State: [employer] / [employer] , Service support , Treatment and Re-Evaluation :: I saw the patient with the NATHALIE. I performed a [id number] evaluation. Patient presents for shortness of breath. Also has lower extremity swelling. Denies any history of heart disease, DVT, or PE. Vital signs reviewed. Patient is tachycardic. Lungs diminished. Bilateral lower extremity edema, nontender. EKG showed what appeared to be a flutter pattern. He was treated with Cardizem and his rate was controlled, but he seemed to be in an atrial fibrillation pattern. No history of this. Chest x-ray, EKG, and labs as above. CTA was ordered given his new dysrhythmia and edema. This showed bilateral PEs with an aortic irregularity. Repeat CTA was done after discussion with radiology. No evidence of dissection but he does have IVC clot. Hospitalist was contacted to admit. They also spoke with vascular surgery and the patient will get a thrombectomy. He was started on heparin and will be admitted for further care. Impression #1 bilateral PEs Impression #2 atrial fibrillation/flutter Discharge Plan Dx/Rx/DC Orders Clinical Impression: Edema of both lower legs, Tobacco dependence, SOB (shortness of breath), Inferior vena caval thrombosis, Bilateral pulmonary embolism, Atrial fibrillation with RVR Disposition Disposition: Acute Care Hospital [facility] Discharge Date/Time: 11/16/22 19:22
[2022-11-16] MEDS: dilTIAZem 25 MG/5 ML Vial 20 MG IV BOLUS (14:52)
[2022-11-16 15:01] LABS: Absolute Lymphocyte Count 1.65 X10^3/uL (0.83-4.51); Absolute Neutrophil Count 7.5 X10^3/uL (2.0-7.7); Basophil# 0.08 X10^3/uL; Basophil% 0.8 % (0-1); Eosinophil# 0.02 X10^3/uL; Eosinophils% 0.2 % (0-5); Hematocrit 45.3 % (40-54); Hemoglobin 14.4 g/dL (13.0-16.5); Lymphocyte # 1.65 X10^3/ul (0.83-4.51); Mean Corp Hgb Conc 31.8 g/dL (32-36); Mean Corpuscular Hgb 33.4 pg (27.0-32.0); Mean Corpuscular Volume 105.1 fL (80-94); Mean Platelet Vol. 10.3 fl (6.2-12.0); Monocyte# 0.96 X10^3/uL; Monocyte% 9.3 % (0-10); NRBC Flagged by Analyzer 0 % (0-5); Neutrophil # 7.54 X10^3/uL (2.7-7.7); Platelet Count 326 K/mm3 (150-450); RBC Distribution Width CV 13.9 % (11.6-14.6); RBC Distribution Width SD 54.4 fl (35.1-43.9); Red Blood Count 4.31 M/mm3 (4.6-6.2); White Blood Count 10.3 K/mm3 (4.4-11.0)
--- NOTE | 2022-11-16 15:02 | RAD_ITS ---
STUDY: X-RAY CHEST REASON FOR EXAM: Male, 72 years old. Shortness of breath TECHNIQUE: PA and 2 lateral views of the chest. COMPARISON: 01/19/2021 FINDINGS: Lungs are hyperexpanded with development of bibasilar opacifications and bilateral pleural effusions since the previous study. Follow-up recommended to assure resolution. Normal size heart. Normal mediastinum and sharon. Normal visualized pulmonary arteries. There is atherosclerotic calcification of the aortic arch with tortuosity. Normal visualized thoracic spine. Normal visualized ribs, clavicles, and shoulders. There is no demonstrated abnormality of the visualized soft tissue structures of the upper abdomen. RAD/Chest PA and Lateral IMPRESSION: Hyperexpanded lungs with development of bilateral pleural effusions and bibasilar atelectasis since the previous study. Electronically Signed: yMron Baldwin MD at 15:14 EDT ,
[2022-11-16 15:28] LABS: Anion Gap 7 (5-15); BUN 23 mg/dL (7-18); BUN/Creat Ratio 22.1 RATIO (10-20); Calcium,Total 9.4 mg/dL (8.5-10.1); Chloride 108 mmol/L (98-107); Creatinine, Serum 1.04 mg/dL (0.70-1.30); EST Glomerular Filtration Rate 75 mL/min (>60); Est Glom Filt Rate - Afr Amer 91 mL/min (>60); Estimated Creatinine Clearance 65.15 ml/min; Glucose 159 mg/dL (74-106); Sodium Level 136 mmol/L (136-145); Troponin-I HS 26 pg/mL (3.0-78.0)
[2022-11-16 15:36] LABS: BNP,B-Type NATRIURETIC PEPTIDE 263.7 pg/mL (0-100)
--- NOTE | 2022-11-16 15:46 | CT_ITS ---
We are attempting to reach an attending provider to discuss findings. An addendum with communication details will be sent when the communication is complete. STUDY: CTA CHEST REASON FOR EXAM: Male, 72 years old. shortness of breath--worse w/ exertion RADIATION DOSAGE (If Supplied By Facility): CTDIvol = ( 19.54 ) mGy, DLP = ( 305.16 ) mGycm TECHNIQUE: The examination was performed with the intravenous administration of IV 100mL Isovue-370. Post-processing of the angiographic images was performed, with multiplanar reformation and 3D reconstruction. Individualized dose optimization techniques were used for this CT. COMPARISON: None. FINDINGS: Normal enhancement of the main pulmonary artery. Filling defect identified within the right mid to distal pulmonary artery and left proximal pulmonary artery extending into the mid proximal branches of the bilateral upper, lower lobe and right middle lobe pulmonary arteries consistent with multiple bilateral pulmonary emboli. Small filling defects with the mid-distal branches of bilateral lower lobe and some of the left upper lobe pulmonary arteries consistent with small pulmonary emboli. The RV/LV ratio is 0.8 with no evidence of right-sided cardiac strain. There is heterogeneous flow within the aortic arch with area of linear hypodensity, cannot exclude focal dissection. The ascending thoracic aorta measures 4.2 x 4.5 cm and descending thoracic aorta averaging approximately 3.2 x 3.4 cm proximally suggestive of mild aneurysmal dilatation. The distal descending thoracic aorta measures 2.8 x 3.3 cm. Normal cardiac size. Normal mediastinum. Normal hilar regions. Normal visualized trachea and bronchi. The lungs are well expanded. There is focal left lower lobe density with minimal peripheral stranding and adjacent groundglass pattern which could represent sequela of focal pneumonitis, cannot exclude neoplasm. This area measures 2.2 x 1.8 cm. There are right middle lobe and bilateral lower lobe subpleural groundglass opacities compatible with multilobar pneumonitis. [id number] right-sided pleural effusion. Mild left-sided pleural effusion. Normal chest wall structures. There are degenerative changes of thoracic spine. Upper abdomen reveals several low-attenuation lesions within the liver, largest seen in the left liver lobe measuring 1.0 cm concerning for liver cysts. CT/CTA Chest W/WO Contrast IMPRESSION: Extensive bilateral pulmonary emboli as described above with no evidence of right-sided cardiac strain. Multifocal pneumonitis. Sequela of pneumonitis versus mass identified in the left upper lobe, follow-up recommended following treatment in 2-3 months to document resolution. Abnormal enhancement of the aortic arch which could represent artifact however, cannot entirely exclude focal dissection. Given diffuse ectasia/mild aneurysmal dilatation throughout the remainder of the aorta, recommend follow-up with CT angiogram dedicated specifically to evaluate aorta with adequate contrast enhancement and exclude dissection. Electronically Signed: Ora Cheng MD at 16:35 EDT ,
[2022-11-16] MEDS: 0.9% Normal Saline (1000mL) 1,000 ML 999 ML IV (16:28)
--- NOTE | 2022-11-16 16:49 | CT_ITS ---
INDICATION: aorta abnormality EXAMINATION: CTA CHEST, ABDOMEN AND PELVIS WITH CONTRAST - TECHNIQUE: A CTA of the chest, abdomen, and pelvis is obtained with sagittal and coronal reconstructed MIP views. Three-dimensional surface rendered sequence of the thoracic and abdominal aorta was obtained. A radiation dose optimization technique was used for this scan. 100 mL of Isovue-370. Oral contrast: None. COMPARISON: None. FINDINGS: CT CHEST: THORACIC AORTA: The ascending thoracic aorta measures 4.2 x 4.2 cm. The proximal descending aorta measures 3.0 x 2.0 cm. The mid-distal descending thoracic aorta measures 2.8 x 2.9 cm. There is scattered atherosclerotic disease throughout the thoracic aorta. There is mild fluid irregularity of the mid posterior aortic arch in not different location when compared to recent CT examination and therefore most compatible with flow artifact. ABDOMINAL AORTA: Atherosclerotic disease throughout the abdominal aorta with no aneurysm or dissection. Redemonstrated bilateral pulmonary emboli starting from the proximal left pulmonary artery and mid-distal right pulmonary artery extending into the proximal lobar and some of the mid-distal lobar branches. LUNGS: Redemonstrated bilateral lower lobe and right middle lobe groundglass opacities compatible with pneumonitis. Focus of pneumonitis versus mass within the posterior aspect of the left upper lobe, unchanged in the interval. Question tiny nodule within the apex of the left lower lobe, image 53, series 2 measuring 5.7 mm. MEDIASTINUM: The thyroid gland is normal. No mediastinal or hilar adenopathy. HEART: Normal cardiac size. No CAD. CT ABDOMEN AND PELVIS: LIVER: The liver enhances homogeneously. Low-attenuation structure within the right liver lobe, image 116, series 2 measuring 7 mm, otherwise incompletely characterized due to small size. Otherwise normal masses identified. GALLBLADDER: The CBD is normal. Normal gallbladder. SPLEEN: Normal. PANCREAS: No masses or inflammation. ADRENAL GLANDS: Normal right adrenal gland. There is mass within the left adrenal gland measuring 2.5 x 2.1 cm, incompletely characterized by current study. KIDNEYS AND URETERS: The kidneys both enhance appropriately. There are normal size and shape. No hydronephrosis or nephrolithiasis. No renal masses or cysts. STOMACH: Normal. SMALL BOWEL: No abnormal distention of the small bowel. MESENTERY: No mesenteric inflammation. No ascites. COLON: No significant diverticulosis, masses or inflammation. The colon otherwise is normal. There is a large fatty ileocecal valve. APPENDIX: Appendix not visualized. IVC: Unremarkable although partially obscured with opacification posteriorly. Absent opacification of the anterior inferior vena cava extending into the left common iliac vein which may indicate thrombosis. RETROPERITONEUM: No retroperitoneal lymphadenopathy. PELVIC STRUCTURES: Negative bladder is opacified with contrast. SOFT TISSUES ABDOMEN: The anterior abdominal wall is normal. SOFT TISSUE CHEST: The extrathoracic soft tissues are normal. BONES: Degenerative disease of the spine more severe through the lumbar spine. Scoliosis of the lumbar spine with convexity to the left. CT/CTA Chst, Abd, Pel W and/or WO IMPRESSION: Irregularity in the enhancement pattern through the aortic arch, likely representing artifact given . Atherosclerosis of aorta with borderline mild aneurysmal dilatation through the descending thoracic aorta. Remainder of the aorta is unremarkable. Likely thrombosis of the inferior vena cava and at least left common iliac vein, follow-up with ultrasound evaluation can help if clinically indicated. Bilateral multifocal pneumonitis and pleural effusions. Left lower lobe apical nodule with questionable mass versus pneumonitis in the left upper lobe. Follow-up CT chest in 2-3 months recommended to evaluate resolution. Left adrenal nodule incompletely characterize. If indicated, this can be assessed with MRI or CT, adrenal mass protocol. Electronically Signed: Ora Cheng MD at 18:09 EDT ,
[2022-11-16 18:02] LABS: International Normalized Ratio 1.1; Prothrombin Time (Protime)PT. 14.4 SECONDS (11.7-14.9)
[2022-11-16 18:03] LABS: Partial Thromboplast Time 27.6 Seconds (24.1-36.2)
[2022-11-16] MEDS: Heparin Injection (Vial) 5,000 UNIT/ML VIAL 4000 UNIT IV (18:39)
[2022-11-16] MEDS: HEPARIN/D5w 25,000 UNITS 25,000 UNITS/250 ML IV.SOLN. 9 UNITS CONT INF (18:43)
--- NOTE | 2022-11-16 18:48 | PCM.HP.STD ---
HPI - General General Date of Admission: 11/16/22 Date of Service: 11/16/22 Chief Complaint: Increasing SOB HPI Narrative REGGIE LIANG, is a 72 M with history of tobacco use and DVT no longer on Eliquis who presented to [facility] 11/16/2022 for increasing shortness of breath over the past week. He reported that he was in his usual health until about a week ago when he began to have worsening shortness of breath both at rest and with exertion and a cough that was worse in the morning. Denies any chest pain, does not feel like his heart is pounding, denies any numbness or tingling anywhere. Does report previous DVT and chronic swelling in his left leg but he has not been taking his Eliquis and said a little over a week ago his right leg began swelling as well now they are both swollen. Denies any abdominal pain or other complaints. [facility] Medical History Arthritis Diarrhea DVT (deep venous thrombosis) SOB (shortness of breath) Home Medications apixaban 5 mg tablet (Eliquis) 5 mg PO BID #60 tabs 02/20/21 [Rx Last Taken Unknown] Allergy/AdvReac Type Severity Reaction Status Date / Time No Known Allergies Allergy Verified 11/16/22 14:20 Family History Other Arthritis Dementia Heart disease Hypertension Surgical History History of bilateral knee replacement History of hernia surgery Social History household members: spouse Smoking Status: Current every day smoker tobacco type: cigarettes Tobacco: How many years used: 15 alcohol intake: current alcohol intake frequency: 3 or more drinks per day substance use type: does not use what type of physical activity do you participate in: none ROS ROS Narrative General: Denies fever/chills HENT: Denies headache, denies stuffy nose, denies sore throat EYES: Denies changes in vision Resp: Cough, particularly in the morning, worsening shortness of breath Cardiac: Denies chest pain GI: Denies abdominal pain, denies changes in bowel, denies nausea/vomiting : Denies changes in urination Extremity: Bilateral lower extremity swelling MSK: Denies weakness Neuro: Denies any numbness/tingling Heme: Denies any bleeding or bruising Skin: Denies rashes Psychiatric: No complaints voiced Vital Signs Vital Signs Vital Signs: 11/16/22 14:19 11/16/22 14:49 11/16/22 14:50 Temperature 96.8 F L Temperature Source Temporal Pulse Rate 62 Respiratory Rate 20 H Respiratory Effort Short of Breath Blood Pressure 145/116 H Blood Pressure Mean 125 Pulse Ox 91 Oxygen Delivery Method Room Air Room Air 11/16/22 14:59 11/16/22 15:44 Temperature Temperature Source Pulse Rate 107 H 124 H Respiratory Rate 25 H Respiratory Effort Blood Pressure 109/88 H Blood Pressure Mean 95 Pulse Ox 98 Oxygen Delivery Method Room Air Weight Weight: 73.028 kg Body Mass Index (BMI) 23.8 Physical Exam Narrative General: Alert, oriented, slight increased work of breathing HEENT: Atraumatic, normocephalic Eyes: Anicteric, normal conjunctiva, extraocular movements grossly intact Neck: Supple Respiratory: Slight increased work of breathing, diminished Cardiovascular: Tachycardic with heart rate low 100s GI: Soft, nontender, nondistended Extremities: 2+ lower extremity edema bilaterally Musculoskeletal: Moving all extremities Neuro: No overt focal neurological deficits, and somewhat shaky which he reports is chronic Skin: No rashes appreciated Psych: Cooperative Results Lab / Micro Data 11/16/22 14:45 11/16/22 14:45 Labs: Laboratory Results - last 24 hr 11/16/22 14:45: WBC 10.3, RBC 4.31 L, Hgb 14.4, Hct 45.3, MCV 105.1 H, MCH 33.4 H, MCHC 31.8 L, RDW Std Deviation 54.4 H, RDW Coeff of Bartolome 13.9, Plt Count 326, MPV 10.3, Immature Gran % (Auto) 0.700, Neut % (Auto) 73.0 H, Lymph % (Auto) 16.0 L, [place] % (Auto) 9.3, Eos % (Auto) 0.2, Baso % (Auto) 0.8, Absolute Neuts (auto) 7.5, Absolute Lymphs (auto) 1.65, Nucleated RBC % 0, Sodium 136, Potassium 4.0, Chloride 108 H, Carbon Dioxide 21.0, Anion Gap 7, BUN 23 H, Creatinine 1.04, Estim Creat Clear Calc 65.15, Est GFR (MDRD) Af Amer 91, Est GFR (MDRD) Non-Af 75, BUN/Creatinine Ratio 22.1 H, Glucose 159 H, Calcium 9.4, Troponin I High Sens 26, B-Natriuretic Peptide 263.7 H 11/16/22 17:47: PT 14.4, INR 1.1, APTT 27.6 Micro: Microbiology 11/16/22 14:57 Nasal Secretion SARS-CoV-2 & FLU Antigen (Rapid) - Final Radiology Impression Chest X-Ray 11/16/22 15:02 IMPRESSION: Hyperexpanded lungs with development of bilateral pleural effusions and bibasilar atelectasis since the previous study. Electronically Signed: Myron Baldwin MD at 15:14 EDT , Chest CTA 11/16/22 15:46 IMPRESSION: Extensive bilateral pulmonary emboli as described above with no evidence of right-sided cardiac strain. Multifocal pneumonitis. Sequela of pneumonitis versus mass identified in the left upper lobe, follow-up recommended following treatment in 2-3 months to document resolution. Abnormal enhancement of the aortic arch which could represent artifact however, cannot entirely exclude focal dissection. Given diffuse ectasia/mild aneurysmal dilatation throughout the remainder of the aorta, recommend follow-up with CT angiogram dedicated specifically to evaluate aorta with adequate contrast enhancement and exclude dissection. Electronically Signed: Ora Cheng MD at 16:35 EDT , ADDENDUM: 11/16/22 1656 IMPRESSION: Extensive bilateral pulmonary emboli as described above with no evidence of right-sided cardiac strain. Multifocal pneumonitis. Sequela of pneumonitis versus mass identified in the left upper lobe, follow-up recommended following treatment in 2-3 months to document resolution. Abnormal enhancement of the aortic arch which could represent artifact however, cannot entirely exclude focal dissection. Given diffuse ectasia/mild aneurysmal dilatation throughout the remainder of the aorta, recommend follow-up with CT angiogram dedicated specifically to evaluate aorta with adequate contrast enhancement and exclude dissection. N.B. : The above Results were Read Back by Ora Cheng MD to Osmin Altamirano MD, and understanding confirmed on 11/16/2022 16:49:52 (ET). Electronically Signed: Ora Cheng MD at 16:35 EDT , Chest/Abdomen/Pelvis CTA 11/16/22 16:49 IMPRESSION: Irregularity in the enhancement pattern through the aortic arch, likely representing artifact given . Atherosclerosis of aorta with borderline mild aneurysmal dilatation through the descending thoracic aorta. Remainder of the aorta is unremarkable. Likely thrombosis of the inferior vena cava and at least left common iliac vein, follow-up with ultrasound evaluation can help if clinically indicated. Bilateral multifocal pneumonitis and pleural effusions. Left lower lobe apical nodule with questionable mass versus pneumonitis in the left upper lobe. Follow-up CT chest in 2-3 months recommended to evaluate resolution. Left adrenal nodule incompletely characterize. If indicated, this can be assessed with MRI or CT, adrenal mass protocol. Electronically Signed: Ora Cheng MD at 18:09 EDT , Assessment & Plan Assessment/Plan (1) Bilateral pulmonary embolism: (2) Left adrenal mass: (3) Nodule of left lung: (4) Inferior vena caval thrombosis: PLAN: Plan #Bilateral pulmonary embolisms with history of DVT -CT scan in ED demonstrated extensive bilateral pulmonary emboli with no evidence of right heart strain -Patient intermittently mildly tachypneic but has not been hypoxic and maintaining O2 sats off any supplemental oxygen -Has not been hypotensive so we will start heparin drip and forego urgent thrombolytics, has intermittently been moderately tachycardic in the mid 100s and then will go into the low 100s, did receive Cardizem in the ED as it seemed may have been A-fib with RVR, suspect his tachycardia is in part compensatory and do not want to completely blunt that response so we will monitor closely -EKG unclear heart rhythm but concern for A-fib, will be important for rate control however will need to do so cautiously as tachycardia may be in part compensatory if low-grade and low 100s however mid 100s would necessitate treatment -Ordered echocardiogram to further evaluate for any strain or abnormalities -Heparin drip -Extensively counseled on importance of compliance with anticoagulation moving forward as he is supposed to be on this chronically but had stopped using it -Will need malignancy work-up moving forward, has possible lung mass as below that will need further follow-up as well as adrenal nodule additionally #Concern for IVC thrombosis -CTA in ED demonstrated likely thrombus of inferior vena cava and at least left common iliac vein -Both lower extremities with swelling -Discussed with Dr. Chacon, patient may need thrombectomy during this hospitalization, continue heparin drip and consult placed #Left lung abnormality -CT scan demonstrated left lower lobe nodule with questionable mass versus pneumonitis in left upper lobe and recommended CT chest in 2 to 3 months to evaluate for resolution -Given extensive clot burden could certainly have underlying malignancy will need to follow-up for this #Left adrenal nodule -Seen on CT scan -We will likely need further evaluation moving forward as patient stabilizes #Frequent alcohol use -Patient drinks most days, usually beers up to 4 during the weekdays and bourbon on the weekends -Patient has no history of withdrawal -Given history of frequent alcohol use and problems that would present if patient begins to withdraw from alcohol during this time. Will add CIWA with as needed Ativan but do not think he needs criteria and needs scheduled phenobarb taper at this time -B12, thiamine, folate #Tobacco use -Advise cessation -Smokes half a pack a day -Patient declined nicotine replacement #DVT ppx: On heparin drip Em Ford MD Charges/Coding Visit Charges Inpatient E&M: 35887 Init Hosp L2
--- NOTE | 2022-11-16 19:28 | ECHOCS_ITS ---
Reason For Study: Pulmonary Emboli Procedure This was a 2D Doppler, Color Flow transthoracic echocardiogram. The study was technically difficult. Exam performed portable in patient room. Left Ventricle Normal LV size. The estimated ejection fraction is 45 %. Flattening of the interventricular septum with septal hypokinesis. Due to A-fib with RVR this test is not ideal for evaluation of LV function and regional wall motion abnormalities. Right Ventricle Mildly dilated right ventricle. Mild global right ventricular systolic dysfunction. Atria The left atrium is mildly enlarged. The right atrium is mildly enlarged. Mitral Valve There is no mitral valve stenosis. Trivial mitral valve insufficiency. Tricuspid Valve There is no tricuspid stenosis. Mild tricuspid valve insufficiency. Pulmonary artery systolic pressure is 65-70 mmHg. Aortic Valve Trisinus/trileaflet aortic valve. There is no aortic stenosis. No aortic valve insufficiency. Pulmonic Valve There is no pulmonic valvular stenosis. No pulmonic valve insufficiency. Great Vessels Normal aortic root. Pericardium/Pleural No pericardial effusion. Medication Diluted definity 3ml given slow IV push to enhance endocardial definition. MMode/2D Measurements & Calculations LVIDd: 4.2 cm IVSd: 1.00 cm Ao root diam: 4.3 cm LVIDs: 2.9 cm LVPWd: 1.1 cm FS: 31.9 % LAV(MOD-sp4): 102.2 ml LA A4 area: 29.0 cm2 LA dimension(2D): 3.3 cm RA A4 area: 20.4 cm2 Doppler Measurements & Calculations MV E max sarai: 72.7 cm/sec Ao V2 max: 93.0 cm/sec LV V1 max: 42.0 cm/sec Ao max P.5 mmHg LV V1 max P.71 mmHg PA V2 max: 46.0 cm/sec TR max sarai: 385.2 cm/sec TR max P.2 mmHg ECHO/Echo Complete W/ Contrast Interpretation Summary The estimated ejection fraction is 45 %. The test is however suboptimal for evaluation of LV function and regional wall motion abnormalities due to patient being in A-fib with RVR. Mildly dilated right ventricle. Mild global right ventricular systolic dysfunction. Trivial mitral valve insufficiency. Ordering Physician: Em Ford Referring Physician: Lilian Rossi M.D. Performed By: Omar Olson RCS
[2022-11-16] MEDS: Metoprolol Tartrate 5 MG/5 ML Vial 2.5 MG IV (20:09)
--- NOTE | 2022-11-16 20:41 | EKG12_ITS ---
Test Reason : A FIB Blood Pressure : / mmHG Vent. Rate : 111 BPM Atrial Rate : 000 BPM P-R Int : 000 ms QRS Dur : 076 ms QT Int : 350 ms P-R-T Axes : 000 072 044 degrees QTc Int : 476 ms Atrial fibrillation with rapid ventricular response with premature ventricular or aberrantly conducte d complexes Low voltage QRS Abnormal ECG When compared with ECG of 16-NOV-2022 14:42, MANUAL COMPARISON REQUIRED, DATA IS UNCONFIRMED Confirmed by LUANN SERRATO, LEON ([id number]), editor greeting card ZACKARY GOOD ([id number]) on 12/11/2022 1:47:36 PM Referred By: ELIZABETH Confirmed By:LEON KONG MD
[2022-11-16] MEDS: Metoprolol Tartrate 25 MG Tablet 12.5 MG PO (21:29)
[2022-11-17] VITALS (7 sets, daily range): BP systolic 107–124; BP diastolic 74–98; PULSE 65–163; RESP 16–18; TEMP 36.2–36.4; O2SAT 94–95
[2022-11-17 01:44] LABS: Partial Thromboplast Time 52.8 Seconds (24.1-36.2)
--- NOTE | 2022-11-17 07:39 | PN.HOSP_ITS ---
Reason for Visit Reason for Visit: Diagnoses Other specified disorders of adrenal gland (11/16/22) Other pulmonary embolism without acute cor pulmonale (11/16/22) Acute embolism and thrombosis of inferior vena cava (11/16/22) Solitary pulmonary nodule (11/16/22) Subjective Subjective Feels well. Would like to go home. Objective Data Objective Data Vital Signs: Vital Signs Temp Pulse Resp BP Pulse Ox O2 Del Method 36.2 C L 88 16 118/95 H 94 Room Air 11/17/22 02:30 11/17/22 02:30 11/17/22 02:30 11/17/22 02:30 11/17/22 02:30 11/17/22 02:30 Oxygen Delivery Method Room Air Weight: 73.8 kg Body Mass Index (BMI) 22.0 Intake & Output: Intake and Output for Last 24 Hours 11/15/22 11/16/22 11/17/22 23:59 23:59 23:59 Intake Total 1000 / 1200 264.35 / 264.35 Output Total 325 / 325 Balance 1000 / 1075 -60.65 / -60.65 Lab / Micro Data 11/17/22 08:00 11/17/22 08:00 Labs: Laboratory Results - last 24 hr 11/16/22 14:45: WBC 10.3, RBC 4.31 L, Hgb 14.4, Hct 45.3, MCV 105.1 H, MCH 33.4 H, MCHC 31.8 L, RDW Std Deviation 54.4 H, RDW Coeff of Bartolome 13.9, Plt Count 326, MPV 10.3, Immature Gran % (Auto) 0.700, Neut % (Auto) 73.0 H, Lymph % (Auto) 16.0 L, [place] % (Auto) 9.3, Eos % (Auto) 0.2, Baso % (Auto) 0.8, Absolute Neuts (auto) 7.5, Absolute Lymphs (auto) 1.65, Nucleated RBC % 0, Sodium 136, Potassium 4.0, Chloride 108 H, Carbon Dioxide 21.0, Anion Gap 7, BUN 23 H, Creatinine 1.04, Estim Creat Clear Calc 65.15, Est GFR (MDRD) Af Amer 91, Est GFR (MDRD) Non-Af 75, BUN/Creatinine Ratio 22.1 H, Glucose 159 H, Calcium 9.4, Troponin I High Sens 26, B-Natriuretic Peptide 263.7 H 11/16/22 17:47: PT 14.4, INR 1.1, APTT 27.6 11/17/22 00:26: APTT 52.8 H Micro: Microbiology 11/16/22 14:57 Nasal Secretion SARS-CoV-2 & FLU Antigen (Rapid) - Final Radiography Diagnostic Testing: Radiology Impression Chest X-Ray 11/16/22 15:02 IMPRESSION: Hyperexpanded lungs with development of bilateral pleural effusions and bibasilar atelectasis since the previous study. Electronically Signed: Myron Baldwin MD at 15:14 EDT , Chest CTA 11/16/22 15:46 IMPRESSION: Extensive bilateral pulmonary emboli as described above with no evidence of right-sided cardiac strain. Multifocal pneumonitis. Sequela of pneumonitis versus mass identified in the left upper lobe, follow-up recommended following treatment in 2-3 months to document resolution. Abnormal enhancement of the aortic arch which could represent artifact however, cannot entirely exclude focal dissection. Given diffuse ectasia/mild aneurysmal dilatation throughout the remainder of the aorta, recommend follow-up with CT angiogram dedicated specifically to evaluate aorta with adequate contrast enhancement and exclude dissection. Electronically Signed: Ora Cheng MD at 16:35 EDT , ADDENDUM: 11/16/22 1656 IMPRESSION: Extensive bilateral pulmonary emboli as described above with no evidence of right-sided cardiac strain. Multifocal pneumonitis. Sequela of pneumonitis versus mass identified in the left upper lobe, follow-up recommended following treatment in 2-3 months to document resolution. Abnormal enhancement of the aortic arch which could represent artifact however, cannot entirely exclude focal dissection. Given diffuse ectasia/mild aneurysmal dilatation throughout the remainder of the aorta, recommend follow-up with CT angiogram dedicated specifically to evaluate aorta with adequate contrast enhancement and exclude dissection. N.B. : The above Results were Read Back by Ora Cheng MD to Osmin Altamirano MD, and understanding confirmed on 11/16/2022 16:49:52 (ET). Electronically Signed: Ora Cheng MD at 16:35 EDT , Chest/Abdomen/Pelvis CTA 11/16/22 16:49 IMPRESSION: Irregularity in the enhancement pattern through the aortic arch, likely representing artifact given . Atherosclerosis of aorta with borderline mild aneurysmal dilatation through the descending thoracic aorta. Remainder of the aorta is unremarkable. Likely thrombosis of the inferior vena cava and at least left common iliac vein, follow-up with ultrasound evaluation can help if clinically indicated. Bilateral multifocal pneumonitis and pleural effusions. Left lower lobe apical nodule with questionable mass versus pneumonitis in the left upper lobe. Follow-up CT chest in 2-3 months recommended to evaluate resolution. Left adrenal nodule incompletely characterize. If indicated, this can be assessed with MRI or CT, adrenal mass protocol. Electronically Signed: Ora Cheng MD at 18:09 EDT , Physical Exam Const alert and no apparent distress HEENT head/scalp atraumatic Resp normal respiratory effort, no retractions, no use of accessory muscles and clear to auscultation bilaterally Cardio regular rate, regular rhythm, S1 normal heart sound and S2 normal heart sound GI normal to inspection, nondistended, normoactive bowel sounds, soft to palpation and non-tender Extremity General Extremity: edema bilateral lower extremity Details: moderate Neuro Sensorium / Orientation: awake Assessment & Plan Assessment/Plan (1) Bilateral pulmonary embolism: PLAN: Bilateral pulmonary embolisms with history of DVT CTA showed: * filling defect identified within the right mid to distal pulmonary artery and left proximal pulmonary artery extending into the mid proximal branches of the bilateral upper, lower lobe and right middle lobe pulmonary arteries consistent with multiple bilateral pulmonary emboli. Small filling defects with the mid-distal branches of bilateral lower lobe and some of the left upper lobe pulmonary arteries consistent with small pulmonary emboli. The RV/LV ratio is 0.8 with no evidence of right-sided cardiac strain. Heparin gtt Echo Eventual transition to Xa inhibitor Patient stopped taking apixaban in the past due to cost. I reviewed cost of apixaban and rivaroxaban with the patient and cost was calculated at $593 for 1 month. Pt think that cost is high because he has not met his deductable and should be cheaper with subsequent Rx. Recommend pt speak with CM about any financial programs. (2) Inferior vena caval thrombosis: PLAN: Noted on CT Vascular surgery on consult to see intervention would be warrented. Continue with heparin gtt (3) Mass of left lung: PLAN: MAUREEN: pneumonitis v mass Follow up CT in 2-3 months (4) Left adrenal mass: PLAN: Unclear significance Follow up with CT or MRI. This can be performed as oupt. (5) Alcohol abuse: PLAN: Drinks nearly daily PRN lorazepam Thiamine and folate PLAN: Plan Chronic conditions: * Tobacco use-Smokes half a pack a day-Patient declined nicotine replacement VTE prophylaxis: not indicated as he is anticoagulated. Greater than 55 minutes of which greater than 50% of time was reviewing the case with the patient, treatment options, reviewing cost of apixaban and Xarelto with the patient at bedside. Also encouraged the patient to stay in the hospital as he was expressing desire to go home. Told him that would be risky as we have not completed his full work-up. Charges/Coding Visit Charges Inpatient E&M: 60665 Subs Hosp L3
[2022-11-17 08:17] LABS: Absolute Lymphocyte Count 1.43 X10^3/uL (0.83-4.51); Absolute Neutrophil Count 6.2 X10^3/uL (2.0-7.7); Basophil# 0.07 X10^3/uL; Basophil% 0.8 % (0-1); Eosinophil# 0.04 X10^3/uL; Eosinophils% 0.5 % (0-5); Hematocrit 41.8 % (40-54); Hemoglobin 13.5 g/dL (13.0-16.5); Lymphocyte # 1.43 X10^3/ul (0.83-4.51); Lymphocyte % 16.8 % (19-41); Mean Corp Hgb Conc 32.3 g/dL (32-36); Mean Corpuscular Hgb 33.1 pg (27.0-32.0); Mean Corpuscular Volume 102.5 fL (80-94); Mean Platelet Vol. 10.5 fl (6.2-12.0); Monocyte# 0.77 X10^3/uL; NRBC Flagged by Analyzer 0 % (0-5); Neutrophil # 6.16 X10^3/uL (2.7-7.7); Neutrophil % 72.4 % (47-70); Platelet Count 321 K/mm3 (150-450); RBC Distribution Width SD 53.3 fl (35.1-43.9); Red Blood Count 4.08 M/mm3 (4.6-6.2); White Blood Count 8.5 K/mm3 (4.4-11.0)
[2022-11-17 08:24] LABS: Partial Thromboplast Time 39.9 Seconds (24.1-36.2)
[2022-11-17] MEDS: Folic Acid 1 MG Tablet PO (08:40)
[2022-11-17] MEDS: Metoprolol Tartrate 25 MG Tablet 12.5 MG PO ×2 (08:40→19:50)
[2022-11-17] MEDS: Thiamine Hydrochloride 100 MG Tablet PO (08:40)
[2022-11-17] MEDS: Cyanocobalamin 500 MCG Tablet 1000 MCG PO (08:40)
[2022-11-17 08:49] LABS: ALB/GLOB Ratio 0.6 RATIO (0.9-2.4); AST(SGOT) 22 U/L (15-37); Alanine Aminotransfer ALT/SGPT 33 U/L (16-61); Albumin, Serum 2.3 g/dL (3.2-5.0); Alkaline Phosphatase 107 U/L (45-117); Anion Gap 4 (5-15); BUN 20 mg/dL (7-18); BUN/Creat Ratio 21.8 RATIO (10-20); Calcium,Total 8.9 mg/dL (8.5-10.1); Chloride 107 mmol/L (98-107); Creatinine, Serum 0.92 mg/dL (0.70-1.30); EST Glomerular Filtration Rate 86 mL/min (>60); Est Glom Filt Rate - Afr Amer 105 mL/min (>60); Estimated Creatinine Clearance 76.88 ml/min; Globulin 3.9 g/dL (2.2-4.2); Glucose 94 mg/dL (74-106); Potassium 4.5 mmol/L (3.5-5.1); Protein, Total 6.2 g/dL (6.4-8.2); Sodium Level 139 mmol/L (136-145); Thyroid Stim Hormone (TSH) 1.56 uIU/mL (0.358-3.74)
[2022-11-17] MEDS: Heparin Injection (Vial) 5,000 UNIT/ML VIAL IV (08:58)
[2022-11-17] MEDS: Metoprolol Tartrate 5 MG/5 ML Vial 2.5 MG IV (12:52)
--- NOTE | 2022-11-17 13:40 | AAVD_ITS ---
Reason For Study: DVT possible IVC thrombus Inferior Vena Cava Proximal inferior vena cava measures 2.38 x 2.71 cm. in the cross-sectional axis. Proximal inferior vena cava measures 2.32 cm. in the longitudinal axis. Mid inferior vena cava measures 2.06 x 2.27 cm. in the cross-sectional axis. Mid inferior vena cava measures 2.09 cm. in the longitudinal axis. Distal inferior vena cava measures 2.60 x 2.66 cm. in the cross-sectional axis. Distal inferior vena cava measures 2.21 cm. in the longitudinal axis. The inferior vena cava has spontaneous, phasic flow throughout. Left Common Iliac Vein Left common iliac vein measures 0.99 x 1.20 cm. in the cross-sectional axis. Left common iliac vein measures 1.01 cm. in the longitudinal axis. The left common iliac vein has spontaneous, phasic flow throughout. The left EIV prox is compressible and has spontaneous, phasic flow throughout. Right Common Iliac Vein Right common iliac vein measures 1.36 x 1.30 cm. in the cross-sectional axis. Right common iliac vein measures 1.05 cm. in the longitudinal axis. The right common iliac vein has spontaneous, phasic flow throughout. Procedure Aorta IVC Iliac vasculature or bypass grafts 65604. Exam performed portable in patient room. VL/Abd Aortic/IVC Duplex scan Interpretation Summary Inferior vena cava and bilateral common iliac veins patent with normal venous f low pattern Ordering Physician: Conor Chacon Referring Physician: Lilian Rossi M.D. Performed By: Linette Pelayo RVT
--- NOTE | 2022-11-17 13:40 | VDLE_ITS ---
Reason For Study: Bilateral leg pain RIGHT LEFT GSV is normal. GSV is normal. CFV is compressible, spontaneous, phasic, Profunda vein in partially compressible with competent and demonstrates normal bright intraluminal echoes. augmentation. EIV distal is partially compressible with FV is compressible, spontaneous, phasic, minimal venous flow noted. competent and demonstrates normal CFV is partially compressible with minimal augmentation. venous flow noted. POP V is compressible, spontaneous, phasic, FV origin is NONCOMPRESSIBLE and dilated. competent and demonstrates normal Remaining FV is compressible with normal augmentation. venous flow with augmentation. T/P Trunk is NONCOMPRESSIBLE with mix PopV and T/P trunk are partially compressible echogenicity noted within. with bright intraluminal echoes consistent PTV is compressible. with Chronic DVT. Normal venous flow noted. RT PerV is compressible. POP V is compressible, spontaneous, phasic, Procedure competent and demonstrates normal This is a venous duplex using B-mode, color augmentation. flow and spectral Doppler. T/P Trunk is compressible. Exam performed portable in patient room. PTV is compressible. A preliminary report was called and/or faxed LT PerV is compressible. to Dr. Chacon. VL/Venous Duplex US - [place] Extrem Interpretation Summary Subacute deep vein thrombosis is noted in the left distal external iliac vein, common femoral vein, femoral vein. Chronic deep vein thrombosis noted in the left popliteal vein, tibioperoneal tr unk vein Subacute deep vein thrombosis is noted in the right tibioperoneal trunk. Ordering Physician: Conor Chacon Referring Physician: Lilian Rossi M.D. Performed By: Linette Pelayo RVT
--- NOTE | 2022-11-17 13:44 | EX.PCM.CON.S ---
Assessment & Plan Assessment/Plan (1) Bilateral pulmonary embolism: PLAN: -HR improved to 65 since admission, BP normal -CT images reviewed, RV/LV ratio <1 -await echo, but unlikely to benefit from PE thrombectomy (2) Inferior vena caval thrombosis: PLAN: -thrombus in bilateral iliac veins and appears to extend into IVC but uncertain how superior it extends vs contrast mixing -will obtain IVC/iliac duplex, bilateral LE duplex -given duration of symptoms he may not benefit from DVT thrombectomy, but duplex will help further define chronicity -patient going to consider whether he would like thrombectomy if it is indicated -further plans based on imaging and his preference HPI Consult Data Date of Consult: 11/17/22 HPI Narrative HPI Narrative: REGGIE LIANG, is a 72 M who presents with about 1 week of CP/SOB. Was found to have bilateral PE as well as bilateral iliac vein thrombus extending into IVC. 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 He has had new right leg edema for 1-2 months. He had been on anticoagulation after his initial DVT and potentially was recommended half-way though unclear and he was not currently on any. Upon presentation he had HR in 110-120s. His SOB is a little better since starting heparin. No family history of DVT/PE/thrombophilia that he is aware of. His initial DVT did not have any provoking factors. He has not had any recent travel/illness/change in level of activity. [facility] Medical History (Updated 11/17/22 @ 07:[address] Conor Juares, DO) Arthritis Diarrhea DVT (deep venous thrombosis) SOB (shortness of breath) Home Medications apixaban 5 mg tablet (Eliquis) 5 mg PO BID #60 tabs 02/20/21 [Rx Last Taken Unknown] Allergy/AdvReac Type Severity Reaction Status Date / Time No Known Allergies Allergy Verified 11/16/22 14:20 Family History Other Arthritis Dementia Heart disease Hypertension Surgical History (Updated 11/16/22 @ 19:50 by Genoveva Zelaya) History of bilateral knee replacement History of hernia surgery Social History household members: spouse Smoking Status: Current every day smoker tobacco type: cigarettes Tobacco: How many years used: 15 alcohol intake: current alcohol intake frequency: 3 or more drinks per day substance use type: does not use what type of physical activity do you participate in: none ROS Constitutional Constitutional: Denies chills, fever(s), frequent falls, lethargy or weakness Eyes Eyes: Denies blind spots, change in vision or loss of vision ENT HEENT: Denies bleeding gums, hoarseness or sore throat Cardiovascular Cardiovascular: Reports chest pain, dyspnea at rest, dyspnea on exertion and leg edema; Denies abdominal pain, bluish discoloration of hand/feet, chest pain with activity, claudication, cold extremities, cyanosis, erythema on extremities, irregular heart rhythm, leg ulcers, numbness in extremities or weakness in extremities Respiratory/Chest Respiratory/Chest: Reports cough, shortness of breath at rest and shortness of breath with exertion; Denies excessive phlegm production or wheezing Gastrointestinal Gastrointestinal: Denies melena or rectal bleeding Genitourinary Genitourinary: Denies dysuria or hematuria Musculoskeletal Musculoskeletal: Denies abnormal gait Integumentary Integumentary: Denies erythema, non-healing lesions or wounds Neurologic Neurologic: Denies abnormal speech, focal weakness, headache(s), loss of vision, numbness, paresthesias or sensory deficit Hematologic/Lymphatic Hematologic/Lymphatic: Denies easy bleeding, easy bruising or lymphadenopathy Physical Exam Const alert, oriented x3, no apparent distress and healthy appearing General Appearance: cooperative; Negative for combative or lethargic Orientation / Consciousness: awake Exam Limitations: no limitations HEENT Head and Scalp: normocephalic and atraumatic Eyes EOMs intact bilaterally General Eye: normal appearance of both eyes Neck full ROM, no lymphadenopathy and thyroid normal General: trachea midline; Negative for lymphadenopathy or tenderness Thyroid: thyroid normal Lymph Lymphatic: Negative for no lymphadenopathy noted Resp normal respiratory effort and no use of accessory muscles Effort and Inspection: Negative for labored, stridor or audible wheezes Cardio regular rate and regular rhythm Peripheral Pulses: brachial pulses present, radial pulses present, posterior tibial pulses present and dorsalis pedis pulses present Back/Spine Cervical Spine: cervical ROM normal Extremity full ROM and normal capillary refill Extremity Narrative: +1 edema bilateral Skin no rashes or lesions noted and no wounds Neuro oriented x3, CN's II-XII intact bilaterally, no focal motor deficits and no sensory deficits noted Psych thought process normal, cooperative, affect normal, speech normal and activity/motor behavior normal Lab / Micro Data 11/17/22 08:00 11/17/22 08:00 Labs: Laboratory Results - last 24 hr 11/16/22 14:45: WBC 10.3, RBC 4.31 L, Hgb 14.4, Hct 45.3, MCV 105.1 H, MCH 33.4 H, MCHC 31.8 L, RDW Std Deviation 54.4 H, RDW Coeff of Bartolome 13.9, Plt Count 326, MPV 10.3, Immature Gran % (Auto) 0.700, Neut % (Auto) 73.0 H, Lymph % (Auto) 16.0 L, Haralson % (Auto) 9.3, Eos % (Auto) 0.2, Baso % (Auto) 0.8, Absolute Neuts (auto) 7.5, Absolute Lymphs (auto) 1.65, Nucleated RBC % 0, Sodium 136, Potassium 4.0, Chloride 108 H, Carbon Dioxide 21.0, Anion Gap 7, BUN 23 H, Creatinine 1.04, Estim Creat Clear Calc 65.15, Est GFR (MDRD) Af Amer 91, Est GFR (MDRD) Non-Af 75, BUN/Creatinine Ratio 22.1 H, Glucose 159 H, Calcium 9.4, Troponin I High Sens 26, B-Natriuretic Peptide 263.7 H 11/16/22 17:47: PT 14.4, INR 1.1, APTT 27.6 11/17/22 00:26: APTT 52.8 H 11/17/22 08:00: WBC 8.5, RBC 4.08 L, Hgb 13.5, Hct 41.8, MCV 102.5 H, MCH 33.1 H, MCHC 32.3, RDW Std Deviation 53.3 H, RDW Coeff of Bartolome 14.0, Plt Count 321, MPV 10.5, Immature Gran % (Auto) 0.500, Neut % (Auto) 72.4 H, Lymph % (Auto) 16.8 L, Haralson % (Auto) 9.0, Eos % (Auto) 0.5, Baso % (Auto) 0.8, Absolute Neuts (auto) 6.2, Absolute Lymphs (auto) 1.43, Nucleated RBC % 0, APTT 39.9 H, Sodium 139, Potassium 4.5, Chloride 107, Carbon Dioxide 28.0, Anion Gap 4 L, BUN 20 H, Creatinine 0.92, Estim Creat Clear Calc 76.88, Est GFR (MDRD) Af Amer 105, Est GFR (MDRD) Non-Af 86, BUN/Creatinine Ratio 21.8 H, Glucose 94, Calcium 8.9, Total Bilirubin 0.80, AST 22, ALT 33, Alkaline Phosphatase 107, Total Protein 6.2 L, Albumin 2.3 L, Globulin 3.9, Albumin/Globulin Ratio 0.6 L, TSH 1.56 Micro: Microbiology 11/16/22 14:57 Nasal Secretion SARS-CoV-2 & FLU Antigen (Rapid) - Final Radiology Impression Chest X-Ray 11/16/22 15:02 IMPRESSION: Hyperexpanded lungs with development of bilateral pleural effusions and bibasilar atelectasis since the previous study. Electronically Signed: Myron Baldwin MD at 15:14 EDT , Chest CTA 11/16/22 15:46 IMPRESSION: Extensive bilateral pulmonary emboli as described above with no evidence of right-sided cardiac strain. Multifocal pneumonitis. Sequela of pneumonitis versus mass identified in the left upper lobe, follow-up recommended following treatment in 2-3 months to document resolution. Abnormal enhancement of the aortic arch which could represent artifact however, cannot entirely exclude focal dissection. Given diffuse ectasia/mild aneurysmal dilatation throughout the remainder of the aorta, recommend follow-up with CT angiogram dedicated specifically to evaluate aorta with adequate contrast enhancement and exclude dissection. Electronically Signed: Ora Cheng MD at 16:35 EDT , ADDENDUM: 11/16/22 1656 IMPRESSION: Extensive bilateral pulmonary emboli as described above with no evidence of right-sided cardiac strain. Multifocal pneumonitis. Sequela of pneumonitis versus mass identified in the left upper lobe, follow-up recommended following treatment in 2-3 months to document resolution. Abnormal enhancement of the aortic arch which could represent artifact however, cannot entirely exclude focal dissection. Given diffuse ectasia/mild aneurysmal dilatation throughout the remainder of the aorta, recommend follow-up with CT angiogram dedicated specifically to evaluate aorta with adequate contrast enhancement and exclude dissection. N.B. : The above Results were Read Back by Ora Cheng MD to Osmin Altamirano MD, and understanding confirmed on 11/16/2022 16:49:52 (ET). Electronically Signed: Ora Cheng MD at 16:35 EDT , Chest/Abdomen/Pelvis CTA 11/16/22 16:49 IMPRESSION: Irregularity in the enhancement pattern through the aortic arch, likely representing artifact given . Atherosclerosis of aorta with borderline mild aneurysmal dilatation through the descending thoracic aorta. Remainder of the aorta is unremarkable. Likely thrombosis of the inferior vena cava and at least left common iliac vein, follow-up with ultrasound evaluation can help if clinically indicated. Bilateral multifocal pneumonitis and pleural effusions. Left lower lobe apical nodule with questionable mass versus pneumonitis in the left upper lobe. Follow-up CT chest in 2-3 months recommended to evaluate resolution. Left adrenal nodule incompletely characterize. If indicated, this can be assessed with MRI or CT, adrenal mass protocol. Electronically Signed: Ora Cheng MD at 18:09 EDT , Charges/Coding Visit Charges Inpatient E&M: 71237 Init Hosp L3
[2022-11-17 15:24] LABS: Partial Thromboplast Time 45.7 Seconds (24.1-36.2)
[2022-11-17] MEDS: HEPARIN/D5w 25,000 UNITS 25,000 UNITS/250 ML IV.SOLN. 13 UNITS CONT INF (15:52)
[2022-11-17 22:16] LABS: Partial Thromboplast Time 65.8 Seconds (24.1-36.2)
[2022-11-18] VITALS (7 sets, daily range): BP systolic 117–129; BP diastolic 89–103; PULSE 77–114; RESP 18; TEMP 36.2–36.4; O2SAT 94–98
[2022-11-18 03:27] LABS: Absolute Lymphocyte Count 1.38 X10^3/uL (0.83-4.51); Absolute Neutrophil Count 6.8 X10^3/uL (2.0-7.7); Basophil# 0.06 X10^3/uL; Basophil% 0.6 % (0-1); Eosinophil# 0.03 X10^3/uL; Eosinophils% 0.3 % (0-5); Hematocrit 41.4 % (40-54); Hemoglobin 13.5 g/dL (13.0-16.5); Lymphocyte # 1.38 X10^3/ul (0.83-4.51); Lymphocyte % 14.9 % (19-41); Mean Corp Hgb Conc 32.6 g/dL (32-36); Mean Corpuscular Hgb 33.5 pg (27.0-32.0); Mean Corpuscular Volume 102.7 fL (80-94); Mean Platelet Vol. 10.5 fl (6.2-12.0); Monocyte# 0.91 X10^3/uL; Monocyte% 9.8 % (0-10); NRBC Flagged by Analyzer 0 % (0-5); Neutrophil # 6.84 X10^3/uL (2.7-7.7); Neutrophil % 73.8 % (47-70); Platelet Count 317 K/mm3 (150-450); RBC Distribution Width CV 13.9 % (11.6-14.6); RBC Distribution Width SD 52.9 fl (35.1-43.9); Red Blood Count 4.03 M/mm3 (4.6-6.2); White Blood Count 9.3 K/mm3 (4.4-11.0)
[2022-11-18 03:36] LABS: Partial Thromboplast Time 71.8 Seconds (24.1-36.2)
[2022-11-18 04:07] LABS: Anion Gap 4 (5-15); BUN 20 mg/dL (7-18); Chloride 107 mmol/L (98-107); Creatinine, Serum 0.91 mg/dL (0.70-1.30); EST Glomerular Filtration Rate 88 mL/min (>60); Est Glom Filt Rate - Afr Amer 106 mL/min (>60); Estimated Creatinine Clearance 77.72 ml/min; Glucose 127 mg/dL (74-106); Potassium 4.3 mmol/L (3.5-5.1); Sodium Level 140 mmol/L (136-145)
[2022-11-18] MEDS: Metoprolol Tartrate 25 MG Tablet 12.5 MG PO ×2 (09:38→21:11)
[2022-11-18] MEDS: HEPARIN/D5w 25,000 UNITS 25,000 UNITS/250 ML IV.SOLN. 12 UNITS CONT INF (09:39)
[2022-11-18] MEDS: Thiamine Hydrochloride 100 MG Tablet PO (09:51)
[2022-11-18] MEDS: Folic Acid 1 MG Tablet PO (09:51)
[2022-11-18] MEDS: Cyanocobalamin 500 MCG Tablet 1000 MCG PO (09:51)
[2022-11-18 10:09] LABS: Partial Thromboplast Time 54.5 Seconds (24.1-36.2)
--- NOTE | 2022-11-18 11:17 | EX.PCM.CONCC ---
Assessment & Plan Assessment/Plan (1) Bilateral pulmonary embolism: PLAN: Plan RECOMMENDATIONS: 1. Continue heparin infusion. Okay to transition to Eliquis or Xarelto from my perspective. 2. Perform walking oximetry study prior to consideration for discharge home. 3. Recommend outpatient noncontrast chest CT in 6 to 8 weeks. 4. Recommend outpatient PFTs. 5. Outpatient pulmonary follow-up in 2 weeks. IMPRESSIONS: 1. Bilateral pulmonary emboli The patient reported a history of prior DVT of unclear etiology. He was placed on Eliquis but eventually became noncompliant with its use. He then presented to the hospital with worsening shortness of breath in the setting of bilateral pulmonary emboli. At this time, I would recommend that the patient be transitioned from heparin to either Eliquis or Xarelto, with plans for continued anticoagulation without interruption. The subpleural peripheral ground glass changes noted on CT imaging of chest, could certainly represent the sequelae of infarction. In light of the patient's tobacco abuse history, I would recommend a follow-up chest CT in 6 to 8 weeks. Perform walking oximetry study prior to consideration for discharge home. 2. Chronic tobacco dependency I personally spent 4 minutes discussing the deleterious effects of continued tobacco use with the patient, including modalities which could be utilized to achieve a smoke-free lifestyle. As noted above, I would recommend outpatient PFTs. In light of his time tobacco abuse history and age, he would be a candidate for yearly low-dose CT screening. This note was generated with [employer], dictation software. It may contain incorrect words, spelling, and punctuation that were not noted in checking the note before signing. HPI Consult Data Date of Consult: 11/19/22 HPI Narrative Reason for Consultation: Pulmonary emboli HPI Narrative: The patient is a 72-year-old male, with a history as outlined below, who presented to the emergency department on November 16 with increasing dyspnea of 1 weeks duration. The patient reported that he was diagnosed with a lower extremity DVT sometime around 2020 of unclear chronicity, and for a period of time was compliant with Eliquis. Sometime last year, he discontinued the Eliquis on his own. The patient does have a tobacco abuse history and continues to smoke approximately 0.5 packs of cigarettes per day. He denies any recent immobility or prolonged travel. On presentation to the emergency department, the patient was noted to be afebrile and hemodynamically stable. He was maintaining appropriate oxygen saturations on room air. Initial laboratory evaluation demonstrated no evidence of a leukocytosis. Chemistry profile was unrevealing. CTA chest demonstrated bilateral pulmonary emboli. There was no evidence of RV dysfunction. There was additional note of peripheral groundglass densities in the right middle lobe and bilateral lower lobes. Surface echocardiogram demonstrated an ejection fraction of 45%. There was mild global RV systolic dysfunction with a pulmonary artery systolic pressure estimated to be 65 to 70 mmHg. [facility] Medical History (Updated 11/18/22 @ 15:[address] Diane Tejada MD) Arthritis Diarrhea DVT (deep venous thrombosis) SOB (shortness of breath) Home Medications apixaban 5 mg tablet (Eliquis) 5 mg PO BID #60 tabs 02/20/21 [Rx Last Taken Unknown] Allergy/AdvReac Type Severity Reaction Status Date / Time No Known Allergies Allergy Verified 11/16/22 14:20 Family History Other Arthritis Dementia Heart disease Hypertension Surgical History (Updated 11/16/22 @ 19:50 by Genoveva Zelaya) History of bilateral knee replacement History of hernia surgery Social History household members: spouse Smoking Status: Current every day smoker tobacco type: cigarettes Tobacco: How many years used: 15 alcohol intake: current alcohol intake frequency: 3 or more drinks per day substance use type: does not use what type of physical activity do you participate in: none ROS ROS Narrative 10 systems reviewed with pertinent positives as noted in the HPI above. Physical Exam Const alert and no apparent distress General Appearance: cooperative HEENT normocephalic and head/scalp atraumatic Eyes PERRL, EOMs intact bilaterally and conjunctivae normal Neck supple General: trachea midline Chest inspection of chest normal Resp Auscultation: diminished lung sounds; Negative for rales, rhonchi or wheezes Cardio regular rate and regular rhythm GI normal to inspection, nondistended, normoactive bowel sounds Extremity General Extremity: edema; Negative for clubbing Skin no rashes or lesions noted Neuro CN's II-XII intact bilaterally, moves all extremities and no focal motor deficits Psych cooperative and affect normal Lab / Micro Data 11/19/22 05:28 11/19/22 05:28 Labs: Laboratory Results - last 24 hr 11/17/22 15:05: APTT 45.7 H 11/17/22 21:43: APTT 65.8 H 11/18/22 03:15: WBC 9.3, RBC 4.03 L, Hgb 13.5, Hct 41.4, MCV 102.7 H, MCH 33.5 H, MCHC 32.6, RDW Std Deviation 52.9 H, RDW Coeff of Bartolome 13.9, Plt Count 317, MPV 10.5, Immature Gran % (Auto) 0.600, Neut % (Auto) 73.8 H, Lymph % (Auto) 14.9 L, Pine % (Auto) 9.8, Eos % (Auto) 0.3, Baso % (Auto) 0.6, Absolute Neuts (auto) 6.8, Absolute Lymphs (auto) 1.38, Nucleated RBC % 0, APTT 71.8 H, Sodium 140, Potassium 4.3, Chloride 107, Carbon Dioxide 29.0, Anion Gap 4 L, BUN 20 H, Creatinine 0.91, Estim Creat Clear Calc 77.72, Est GFR (MDRD) Af Amer 106, Est GFR (MDRD) Non-Af 88, BUN/Creatinine Ratio 22.0 H, Glucose 127 H, Calcium 9.0 11/18/22 09:33: APTT 54.5 H Radiology Impression Echocardiogram 11/16/22 19:28 Interpretation Summary The estimated ejection fraction is 45 %. The test is however suboptimal for evaluation of LV function and regional wall motion abnormalities due to patient being in A-fib with RVR. Mildly dilated right ventricle. Mild global right ventricular systolic dysfunction. Trivial mitral valve insufficiency. Ordering Physician: Em Ford Referring Physician: Lilian Rossi M.D. Performed By: Omar Olson RCS Charges/Coding Visit Charges Inpatient E&M: 50898 Init Hosp L3 Procedures Hospitalists Procedures: Other Procedure - See Report ([id number])
--- NOTE | 2022-11-18 11:25 | CASEMGMT ---
RN CM Face to Face with patient for initial transition planning/care coordination assessment. RN CM introduced self and role at [facility]. Patient lying in bed, alert and oriented. Patient willing to participate in assessment and is able to answer all questions appropriately. Care providers, pharmacy, and demographics verified. Patient wishes to discharge home, denies need for home health at this time. Patient states he has no further needs or concerns at this time. CM to follow for discharge planning needs that may arise. PCP: Flo Specialists: none Preferred Pharmacy: [facility] Insurance: Jesse GODOY Prescription Benefit: yes Living Will/HPOA: ye, daughter Diamond Phelan LNOK: , daughter Living Arrangements: Patient lives with in a 2 story home with bed and bath on first floor. 4 steps and railing to enter the home. Transportation: self, DME/HHC: Patient has shower chair, raised toilet, and cane at home. No previous HHC or SNF Disposition Plan: Patient to discharge home with family support and follow-up plans in place. Will monitor for home oxygen at discharge. Linette BOBBY, RN, CM
--- NOTE | 2022-11-18 15:36 | PN_ITS ---
Subjective Subjective Patient seen and examined. He had no active complaints and had an uneventful night. Review of systems otherwise negative. He denies any chest pain or palpitations or dizziness. Patient has never had any age-appropriate cancer screening. He did have a history of DVT in his lower extremity but says that was 2 years ago. He was on Eliquis for a year and abruptly took himself of off it. Review of systems is otherwise negative. Objective Data Objective Data Vital Signs: Vital Signs Temp Pulse Resp BP Pulse Ox O2 Del Method 97.4 F L 108 H 18 118/90 H 95 Room Air 11/18/22 15:14 11/18/22 15:14 11/18/22 15:14 11/18/22 15:14 11/18/22 15:14 11/18/22 15:14 Oxygen Delivery Method Room Air Weight: 162 lb 11.218 oz Body Mass Index (BMI) 22.0 Intake & Output: Intake and Output for Last 24 Hours 11/16/22 11/17/22 11/18/22 23:59 23:59 23:59 Intake Total 1000 / 1200 944.38 / 1044.38 755.35 / 755.35 Output Total 1025 / 1300 475 / 475 Balance 1000 / 1075 -80.62 / -255.62 280.35 / 280.35 Lab / Micro Data 11/18/22 03:15 11/18/22 03:15 Labs: Laboratory Results - last 24 hr 11/17/22 21:43: APTT 65.8 H 11/18/22 03:15: WBC 9.3, RBC 4.03 L, Hgb 13.5, Hct 41.4, MCV 102.7 H, MCH 33.5 H , MCHC 32.6, RDW Std Deviation 52.9 H, RDW Coeff of Bartolome 13.9, Plt Count 317, MPV 10.5, Immature Gran % (Auto) 0.600, Neut % (Auto) 73.8 H, Lymph % (Auto) 14.9 L, Pickett % (Auto) 9.8, Eos % (Auto) 0.3, Baso % (Auto) 0.6, Absolute Neuts (auto) 6.8, Absolute Lymphs (auto) 1.38, Nucleated RBC % 0, APTT 71.8 H, Sodium 140, Potassium 4.3, Chloride 107, Carbon Dioxide 29.0, Anion Gap 4 L, BUN 20 H, Creatinine 0.91, Estim Creat Clear Calc 77.72, Est GFR (MDRD) Af Amer 106, Est GFR (MDRD) Non-Af 88, BUN/Creatinine Ratio 22.0 H, Glucose 127 H, Calcium 9.0 11/18/22 09:33: APTT 54.5 H Micro: Microbiology 11/16/22 14:57 Nasal Secretion SARS-CoV-2 & FLU Antigen (Rapid) - Final Radiography Diagnostic Testing: Radiology Impression Echocardiogram 11/16/22 19:28 Interpretation Summary The estimated ejection fraction is 45 %. The test is however suboptimal for evaluation of LV function and regional wall motion abnormalities due to patient being in A-fib with RVR. Mildly dilated right ventricle. Mild global right ventricular systolic dysfunction. Trivial mitral valve insufficiency. Ordering Physician: Em Ford Referring Physician: Lilian Rossi M.D. Performed By: Omar Olson RCS Physical Exam Const alert, oriented x3 and no apparent distress General Appearance: cooperative HEENT normocephalic, head/scalp atraumatic, moist oral mucous membranes and oropharynx normal Eyes PERRL and EOMs intact bilaterally Neck no lymphadenopathy and supple Lymph Lymphatic: no lymphadenopathy noted and no lymphedema noted Resp normal respiratory effort Cardio regular rate, regular rhythm, S1 normal heart sound, S2 normal heart sound and no murmurs GI normal to inspection, nondistended, normoactive bowel sounds, soft to palpation, non-tender and non-distended Extremity normal capillary refill, no clubbing, cyanosis or edema and no calf tenderness General Extremity: no tenderness to palpation of joints or extremities Skin General Skin Exam: no breakdown and turgor normal Neuro CN's II-XII intact bilaterally, no focal motor deficits, no sensory deficits noted and deep tendon reflexes 2+ bilaterally Motor Exam: strength 5/5 throughout and general weakness Psych thought process normal and cooperative Appearance: appropriate Assessment & Plan Assessment/Plan (1) SOB (shortness of breath): (2) Pulmonary embolism: PLAN: Plan #Bilateral PE * CT of the chest showed bilateral filling defects consistent with multiple bilateral pulmonary emboli with no evidence of right cardiac strain. * He had previously been on Eliquis for DVT in his lower extremity. He took the Eliquis for about a year and abruptly weaned himself off of it. * 2D echo done. Switch to p.o. Eliquis 10 mg twice daily for 7 days and then to continue with 5 mg twice daily afterwards for PE treatment. * Patient has never had any age-appropriate screening for malignancy and has never had any hematological work-up for any hypercoagulable state. * CT of the chest did show possible mass versus pneumonitis in the left upper lung. I did pulmonology who reviewed him and felt this could be followed up on outpatient basis. * By pulmonology, to perform outpatient noncontrast CT chest in about 6 to 8 weeks and also have outpatient PFTs. * will need walking pulse ox prior to discharge #Inferior vena cava thrombosis: * As per CT. Vascular surgery consulted and advocated conservative management for now and to follow-up on outpatient basis. * Per vascular surgery, and given duration of symptoms he may not benefit from DVT thrombectomy but duplex will felt further define chronicity. * Patient is going to consider whether he would like thrombectomy if it is indicated. #Left upper lung mass versus pneumonitis: As above. Follow-up on outpatient basis. Pulmonology consulted and reviewed patient. #Left adrenal mass: To follow-up with CT or MRI on outpatient basis. #Alcohol use disorder. Drinks alcohol daily. At risk of withdrawal. On Ativan as needed. On thiamine, folic acid and Multivite. * \ * #A-fib: * Rate is not very well controlled. May have been due to bilateral PE. * Started on metoprolol 12.5 mg twice daily. IV Lopressor as needed. * Adjust metoprolol dose if heart rate control doesnt improve. * DVT prophylaxis; on eliquis treatment dose Charges/Coding Visit Charges Inpatient E&M: 91853 Subs Hosp L2
[2022-11-18] MEDS: APIXABAN 5 MG TABLET 10 MG PO ×2 (16:10→21:11)
--- NOTE | 2022-11-18 17:02 | PN.SURG_ITS ---
Subjective Subjective No new symptoms overnight. Leg edema unchanged. Has considered thrombectomy, would prefer to follow up and discuss as outpatient. Objective Data Objective Data A&O x 3, NAD Tachycardic, RR Resp non labored +1 edema bilateral IVC duplex- no visualized thrombus in IVC or common iliac veins LE duplex- left external, common femoral, femoral vein subacute thrombus Vital Signs: Vital Signs Temp Pulse Resp BP Pulse Ox O2 Del Method 97.4 F L 108 H 18 118/90 H 95 Room Air 11/18/22 15:14 11/18/22 15:14 11/18/22 15:14 11/18/22 15:14 11/18/22 15:14 11/18/22 15:14 Oxygen Delivery Method Room Air Weight: 162 lb 11.218 oz Body Mass Index (BMI) 22.0 Intake & Output: Intake and Output for Last 24 Hours 11/16/22 11/17/22 11/18/22 23:59 23:59 23:59 Intake Total 1000 / 1200 944.38 / 1044.38 829.02 / 829.02 Output Total 1025 / 1300 475 / 475 Balance 1000 / 1075 -80.62 / -255.62 354.02 / 354.02 Lab / Micro Data 11/18/22 03:15 11/18/22 03:15 Labs: Laboratory Results - last 24 hr 11/17/22 21:43: APTT 65.8 H 11/18/22 03:15: WBC 9.3, RBC 4.03 L, Hgb 13.5, Hct 41.4, MCV 102.7 H, MCH 33.5 H , MCHC 32.6, RDW Std Deviation 52.9 H, RDW Coeff of Bartolome 13.9, Plt Count 317, MPV 10.5, Immature Gran % (Auto) 0.600, Neut % (Auto) 73.8 H, Lymph % (Auto) 14.9 L, [place] % (Auto) 9.8, Eos % (Auto) 0.3, Baso % (Auto) 0.6, Absolute Neuts (auto) 6.8, Absolute Lymphs (auto) 1.38, Nucleated RBC % 0, APTT 71.8 H, Sodium 140, Potassium 4.3, Chloride 107, Carbon Dioxide 29.0, Anion Gap 4 L, BUN 20 H, Creatinine 0.91, Estim Creat Clear Calc 77.72, Est GFR (MDRD) Af Amer 106, Est GFR (MDRD) Non-Af 88, BUN/Creatinine Ratio 22.0 H, Glucose 127 H, Calcium 9.0 11/18/22 09:33: APTT 54.5 H Micro: Microbiology 11/16/22 14:57 Nasal Secretion SARS-CoV-2 & FLU Antigen (Rapid) - Final Radiography Diagnostic Testing: Radiology Impression Echocardiogram 11/16/22 19:28 Interpretation Summary The estimated ejection fraction is 45 %. The test is however suboptimal for evaluation of LV function and regional wall motion abnormalities due to patient being in A-fib with RVR. Mildly dilated right ventricle. Mild global right ventricular systolic dysfunction. Trivial mitral valve insufficiency. Ordering Physician: Em Ford Referring Physician: Lilian Rossi M.D. Performed By: Omar Olson RCS Aorta Iliac Vascular Ultrasound 11/17/22 13:40 Interpretation Summary Inferior vena cava and bilateral common iliac veins patent with normal venous flow pattern Ordering Physician: Conor Chacon Referring Physician: Lilian Rossi M.D. Performed By: Linette Pelayo RVT Venous Doppler Study 11/17/22 13:40 Interpretation Summary Subacute deep vein thrombosis is noted in the left distal external iliac vein, common femoral vein, femoral vein. Chronic deep vein thrombosis noted in the left popliteal vein, tibioperoneal trunk vein Subacute deep vein thrombosis is noted in the right tibioperoneal trunk. Ordering Physician: Conor Chacon Referring Physician: Lilian Rossi M.D. Performed By: Linette Pelayo RVT Assessment & Plan Assessment/Plan (1) Inferior vena caval thrombosis: PLAN: -IVC visualized and patent on duplex; CT finding may be contrast mixing artifact or thrombus has resolved with heparin, though also could just not be visualized on duplex -given external iliac and common femoral thrombus in left he would potentially benefit from thrombectomy; appearance on duplex consistent with symptom timing and also appears amenable to intervention -would like to consider options further, would prefer to follow up as outpatient
[2022-11-19] VITALS (7 sets, daily range): BP systolic 112–124; BP diastolic 84–95; PULSE 98–151; RESP 16–18; TEMP 36.7–37; O2SAT 93–96
[2022-11-19 06:38] LABS: Absolute Lymphocyte Count 1.43 X10^3/uL (0.83-4.51); Absolute Neutrophil Count 6.5 X10^3/uL (2.0-7.7); Basophil# 0.06 X10^3/uL; Basophil% 0.7 % (0-1); Eosinophil# 0.05 X10^3/uL; Eosinophils% 0.5 % (0-5); Hematocrit 41.3 % (40-54); Hemoglobin 13.2 g/dL (13.0-16.5); Lymphocyte # 1.43 X10^3/ul (0.83-4.51); Lymphocyte % 15.7 % (19-41); Mean Corpuscular Hgb 33.1 pg (27.0-32.0); Mean Corpuscular Volume 103.5 fL (80-94); Mean Platelet Vol. 10.9 fl (6.2-12.0); Monocyte# 1.02 X10^3/uL; Monocyte% 11.2 % (0-10); NRBC Flagged by Analyzer 0 % (0-5); Neutrophil # 6.47 X10^3/uL (2.7-7.7); Platelet Count 339 K/mm3 (150-450); RBC Distribution Width CV 13.9 % (11.6-14.6); RBC Distribution Width SD 52.8 fl (35.1-43.9); Red Blood Count 3.99 M/mm3 (4.6-6.2); White Blood Count 9.1 K/mm3 (4.4-11.0)
[2022-11-19 07:12] LABS: Anion Gap 3 (5-15); BUN 20 mg/dL (7-18); BUN/Creat Ratio 22.8 RATIO (10-20); Calcium,Total 8.7 mg/dL (8.5-10.1); Chloride 105 mmol/L (98-107); Creatinine, Serum 0.88 mg/dL (0.70-1.30); EST Glomerular Filtration Rate 91 mL/min (>60); Est Glom Filt Rate - Afr Amer 110 mL/min (>60); Estimated Creatinine Clearance 80.37 ml/min; Glucose 104 mg/dL (74-106); Potassium 4.1 mmol/L (3.5-5.1); Sodium Level 138 mmol/L (136-145)
--- NOTE | 2022-11-19 09:16 | DS.PCM_ITS ---
Providers Date of Admission: 11/16/22 Primary Care Physician: Dr. Lilian Rossi MD Consultations 11/16/22 19:28 Consult: Vascular Surgery Routine Consulting Provider: Conor Chacon Reason for Consult: IVC thrombus EMERGENT Consult: No Notified: Yes Date Notified: 11/16/22 Time Notified: 19:27 Method of Notification: Verbal 11/18/22 08:08 Consult: Plasterer Tender / Pulmonary Medicine Routine Consulting Provider: [facility] Reason for Consult: bilateral PE, lung nodule EMERGENT Consult: No Notified: Yes Date Notified: 11/18/22 Time Notified: 08:08 Method of Notification: Text Reason For Visit: BILATERAL PEs, THROMBOSED IVC Diagnosis Discharge Diagnosis (1) Bilateral pulmonary embolism: Status: Acute Code(s): I26.99 - Other pulmonary embolism without acute cor pulmonale Plan #Bilateral PE * CT of the chest showed bilateral filling defects consistent with multiple bilateral pulmonary emboli with no evidence of right cardiac strain. * He had previously been on Eliquis for DVT in his lower extremity. He took the Eliquis for about a year and abruptly weaned himself off of it. * 2D echo done. Switch to p.o. Eliquis 10 mg twice daily for 7 days and then to continue with 5 mg twice daily afterwards for PE treatment. * Patient has never had any age-appropriate screening for malignancy and has never had any hematological work-up for any hypercoagulable state. * CT of the chest did show possible mass versus pneumonitis in the left upper lung. I did pulmonology who reviewed him and felt this could be followed up on outpatient basis. * By pulmonology, to perform outpatient noncontrast CT chest in about 6 to 8 weeks and also have outpatient PFTs. * will need walking pulse ox prior to discharge #Inferior vena cava thrombosis: * As per CT. Vascular surgery consulted and advocated conservative management for now and to follow-up on outpatient basis. * Per vascular surgery, and given duration of symptoms he may not benefit from DVT thrombectomy but duplex will felt further define chronicity. * Patient is going to consider whether he would like thrombectomy if it is indicated. #Left upper lung mass versus pneumonitis: As above. Follow-up on outpatient basis. Pulmonology consulted and reviewed patient. #Left adrenal mass: To follow-up with CT or MRI on outpatient basis. #Alcohol use disorder. Drinks alcohol daily. At risk of withdrawal. On Ativan as needed. On thiamine, folic acid and Multivite. * \ * #A-fib: * Rate is not very well controlled. May have been due to bilateral PE. * Started on metoprolol 12.5 mg twice daily. IV Lopressor as needed. * Adjust metoprolol dose if heart rate control doesnt improve. * DVT prophylaxis; on eliquis treatment dose Medications at Discharge Home Medications apixaban 5 mg (74 tabs) tablets in a dose pack (Eliquis DVT-PE Treat 30D Start) 5 mg PO BID #74 tabs 11/19/22 metoprolol tartrate 25 mg tablet 12.5 mg (1/2 x 25 mg) PO BID #30 tabs 11/19/22 Weight / BMI Weight Weight: 162 lb 11.218 oz Body Mass Index (BMI) 22.0 ABG / Lab / Microbiology Data 11/19/22 05:28 11/19/22 05:28 Laboratory: Laboratory Results - last 24 hr 11/18/22 09:33: APTT 54.5 H 11/19/22 05:28: WBC 9.1, RBC 3.99 L, Hgb 13.2, Hct 41.3, MCV 103.5 H, MCH 33.1 H , MCHC 32.0, RDW Std Deviation 52.8 H, RDW Coeff of Bartolome 13.9, Plt Count 339, MPV 10.9, Immature Gran % (Auto) 0.900, Neut % (Auto) 71.0 H, Lymph % (Auto) 15.7 L, [place] % (Auto) 11.2 H, Eos % (Auto) 0.5, Baso % (Auto) 0.7, Absolute Neuts (auto) 6.5, Absolute Lymphs (auto) 1.43, Nucleated RBC % 0, Sodium 138, Potassium 4.1, Chloride 105, Carbon Dioxide 30.0, Anion Gap 3 L, BUN 20 H, Creatinine 0.88, Estim Creat Clear Calc 80.37, Est GFR (MDRD) Af Amer 110, Est GFR (MDRD) Non-Af 91, BUN/Creatinine Ratio 22.8 H, Glucose 104, Calcium 8.7 Microbiology: Microbiology 11/16/22 14:57 Nasal Secretion SARS-CoV-2 & FLU Antigen (Rapid) - Final Radiography Diagnostic Testing: Radiology Impression Echocardiogram 11/16/22 19:28 Interpretation Summary The estimated ejection fraction is 45 %. The test is however suboptimal for evaluation of LV function and regional wall motion abnormalities due to patient being in A-fib with RVR. Mildly dilated right ventricle. Mild global right ventricular systolic dysfunction. Trivial mitral valve insufficiency. Ordering Physician: Em Ford Referring Physician: Lilian Rossi M.D. Performed By: Omar Olson RCS Aorta Iliac Vascular Ultrasound 11/17/22 13:40 Interpretation Summary Inferior vena cava and bilateral common iliac veins patent with normal venous flow pattern Ordering Physician: Conor Chacon Referring Physician: Lilian Rossi M.D. Performed By: Linette Pelayo RVT Venous Doppler Study 11/17/22 13:40 Interpretation Summary Subacute deep vein thrombosis is noted in the left distal external iliac vein, common femoral vein, femoral vein. Chronic deep vein thrombosis noted in the left popliteal vein, tibioperoneal trunk vein Subacute deep vein thrombosis is noted in the right tibioperoneal trunk. Ordering Physician: Conor Chacon Referring Physician: Lilian Rossi M.D. Performed By: Linette Pelayo RVT D/C Instructions Discharge Diet: Low fat / Low cholesterol Weight Bearing Status: Weight bearing as tolerated Call your doctor if you observe: Fever of 101 or Higher, Shortness of breath, Dizziness, Swelling in the ankles and Chest pain Discharge Plan Admission Admit Date/Time: 11/16/22 18:48 Primary Reason for Your Visit: bilateral PE Attending Provider: Diane Tejada Primary Care Provider: Lilian Rossi Consulting Providers: Conor Chacon; Em Ford; Conor Juares; Rogelio Johnson; Rui Justice; Kedar Frazier; Timothy Gallegos; Oli Power; Angella Mohr CHEMICAL PROCESSOR Instructions Patient Instructions: DVT/PE Discharge instruction sheet Discharge Orders/Prescriptions Prescriptions: New metoprolol tartrate 25 mg Tablet 12.5 mg PO BID Qty: 30 1RF Eliquis DVT-PE Treat 30D Start 5 mg (74 tabs) tablets,dose pack 5 mg PO BID Qty: 74 2RF Rx Instructions: take 10mg (2 tabs) twice daily for 7 days (till 11/24/2022), then continue 5mg (one tab) twice daily). Discontinued Eliquis 5 mg tablet 5 mg PO BID Qty: 60 4RF Referrals / Follow Up: Conor Chacon MD [Med Staff - Active Staff] - Within 2 Weeks Mihcael Elliott MD [Med Staff - Active Staff] - Within 2 Weeks (see for workup for clotting disorder) Lilian Rossi MD [Primary Care Provider] - Edward Sharma DO [Med Staff - Active Staff] - Within 2 Weeks (see gastroenterology for age appropriate screening) Angella Mohr NP, CHEMICAL PROCESSOR-C [Med Staff - Adv Practice Prof] - 12/23/22 9:15 am Disposition Disposition (needs filled in before D/C Order can be placed): Home, Self Care
--- NOTE | 2022-11-19 09:16 | PCM.DC ---
Discharge Instructions Diet Discharge Diet: Low fat / Low cholesterol Activity Discharge Activity: Return to Normal Activity Weight Bearing Status: Weight bearing as tolerated Dressing / Incision Call your doctor if you observe: Fever of 101 or Higher, Shortness of breath, Dizziness, Swelling in the ankles and Chest pain Follow Up Care Test Results: Test results from this visit will be discussed in further detail at your follow-up appointment, if applicable. Discharge Plan Admission Admit Date/Time: 11/16/22 18:48 Primary Reason for Your Visit: bilateral PE Attending Provider: Diane Tejada Primary Care Provider: Lilian Rossi Consulting Providers: Conor Chacon; Em Ford; Conor Juares; Rogelio Johnson; Rui Justice; Kedar Frazier; Timothy Gallegos; Oli Power; Angella Mohr CONTENT CREATION MANAGER Instructions Patient Instructions: DVT/PE Discharge instruction sheet Discharge Orders/Prescriptions Prescriptions: New metoprolol tartrate 25 mg Tablet 12.5 mg PO BID Qty: 30 1RF Eliquis DVT-PE Treat 30D Start 5 mg (74 tabs) tablets,dose pack 5 mg PO BID Qty: 74 2RF Rx Instructions: take 10mg (2 tabs) twice daily for 7 days (till 11/24/2022), then continue 5mg (one tab) twice daily). Discontinued Eliquis 5 mg tablet 5 mg PO BID Qty: 60 4RF Referrals / Follow Up: Conor Chacon MD [Med Staff - Active Staff] - Within 2 Weeks Michael Elliott MD [Med Staff - Active Staff] - Within 2 Weeks (see for workup for clotting disorder) Lilian Rossi MD [Primary Care Provider] - Edward Sharma DO [Med Staff - Active Staff] - Within 2 Weeks (see gastroenterology for age appropriate screening) Angella Mohr NP, CONTENT CREATION MANAGER-C [Med Staff - Adv Practice Prof] - 12/23/22 9:15 am Disposition Disposition (needs filled in before D/C Order can be placed): Home, Self Care
--- NOTE | 2022-11-19 09:56 | PHA.DC_ITS ---
Pharmacy [facility] has performed discharge medication reconciliation and counseling for this patient. The patient was counseled on the following discharge medications and changes in medications for homegoing were reviewed. 1. ELIQUIS 2. LOPRESSOR The Reason for Use, instructions for use, and potential side effects were reviewed for all new medications. The patient's questions regarding all of their medications were answered. The patient was able to verbally demonstrate an understanding of their discharge medications. The patient's discharge medication list was reviewed for discrepancies and discrepancies were resolved. Medications at Discharge Home Medications apixaban 5 mg (74 tabs) tablets in a dose pack (Eliquis DVT-PE Treat 30D Start) 5 mg PO BID #74 tabs 11/19/22 metoprolol tartrate 25 mg tablet 12.5 mg (1/2 x 25 mg) PO BID #30 tabs 11/19/22
--- NOTE | 2022-11-19 09:59 | PCM.PN.INT ---
Assessment & Plan Assessment/Plan (1) Bilateral pulmonary embolism: PLAN: Plan RECOMMENDATIONS: 1. Continue Eliquis as ordered. 2. Perform walking oximetry study prior to consideration for discharge home. 3. Recommend outpatient noncontrast chest CT in 6 to 8 weeks. 4. Recommend outpatient PFTs. 5. Outpatient pulmonary follow-up in 2 weeks. IMPRESSIONS: 1. Bilateral pulmonary emboli The patient reported a history of prior DVT of unclear etiology. He was placed on Eliquis but eventually became noncompliant with its use. He then presented to the hospital with worsening shortness of breath in the setting of bilateral pulmonary emboli. The patient has been transition from heparin infusion to Eliquis, which will be continued without interruption. The subpleural peripheral ground glass changes noted on CT imaging of chest, could certainly represent the sequelae of infarction. In light of the patient's tobacco abuse history, I would recommend a follow-up chest CT in 6 to 8 weeks. Perform walking oximetry study prior to consideration for discharge home. 2. Chronic tobacco dependency Tobacco cessation counseling was provided. As noted above, I would recommend outpatient PFTs. In light of his time tobacco abuse history and age, he would be a candidate for yearly low-dose CT screening. This note was generated with [employer] dictation software. It may contain incorrect words, spelling, and punctuation that were not noted in checking the note before signing. Subjective Subjective The patient was seen and examined at the bedside this morning. Events from the last 24 hours have been reviewed. The patient is currently afebrile, hemodynamically stable and maintaining appropriate oxygen saturations on room air. No events were noted overnight. The patient denied any shortness of breath or chest discomfort this morning. He is anxious to be discharged home. Objective Data Objective Data The patient's most recent lab work, culture data and imaging studies have all been personally reviewed. Vital Signs: Vital Signs Temp Pulse Resp BP Pulse Ox O2 Del Method 98.0 F 116 H 18 119/86 H 96 Room Air 11/19/22 03:11/19/22 03:11/19/22 03:11/19/22 03:11/19/22 03:11/19/22 04:04 Oxygen Delivery Method Room Air Weight: 162 lb 11.218 oz Body Mass Index (BMI) 22.0 Intake & Output: Intake and Output for Last 24 Hours 11/17/22 11/18/22 11/19/22 23:59 23:59 23:59 Intake Total 944.38 / 1044.38 1429.02 / 1549.02 180 / 180 Output Total 1025 / 1300 475 / 875 550 / 550 Balance -80.62 / -255.62 954.02 / 674.02 -370 / -370 Lab / Micro Data Attestation: I reviewed the patient's lab results. 11/19/22 05:28 11/19/22 05:28 Labs: Laboratory Results - last 24 hr 11/18/22 09:33: APTT 54.5 H 11/19/22 05:28: WBC 9.1, RBC 3.99 L, Hgb 13.2, Hct 41.3, MCV 103.5 H, MCH 33.1 H, MCHC 32.0, RDW Std Deviation 52.8 H, RDW Coeff of Bartolome 13.9, Plt Count 339, MPV 10.9, Immature Gran % (Auto) 0.900, Neut % (Auto) 71.0 H, Lymph % (Auto) 15.7 L, [place] % (Auto) 11.2 H, Eos % (Auto) 0.5, Baso % (Auto) 0.7, Absolute Neuts (auto) 6.5, Absolute Lymphs (auto) 1.43, Nucleated RBC % 0, Sodium 138, Potassium 4.1, Chloride 105, Carbon Dioxide 30.0, Anion Gap 3 L, BUN 20 H, Creatinine 0.88, Estim Creat Clear Calc 80.37, Est GFR (MDRD) Af Amer 110, Est GFR (MDRD) Non-Af 91, BUN/Creatinine Ratio 22.8 H, Glucose 104, Calcium 8.7 Micro: Microbiology 11/16/22 14:57 Nasal Secretion SARS-CoV-2 & FLU Antigen (Rapid) - Final Radiography Diagnostic Testing: Radiology Impression Echocardiogram 11/16/22 19:28 Interpretation Summary The estimated ejection fraction is 45 %. The test is however suboptimal for evaluation of LV function and regional wall motion abnormalities due to patient being in A-fib with RVR. Mildly dilated right ventricle. Mild global right ventricular systolic dysfunction. Trivial mitral valve insufficiency. Ordering Physician: Em Ford Referring Physician: Lilian Rossi M.D. Performed By: Omar Olson RCS Aorta Iliac Vascular Ultrasound 11/17/22 13:40 Interpretation Summary Inferior vena cava and bilateral common iliac veins patent with normal venous flow pattern Ordering Physician: Conor Chacon Referring Physician: Lilian Rossi M.D. Performed By: Linette Pelayo RVT Venous Doppler Study 11/17/22 13:40 Interpretation Summary Subacute deep vein thrombosis is noted in the left distal external iliac vein, common femoral vein, femoral vein. Chronic deep vein thrombosis noted in the left popliteal vein, tibioperoneal trunk vein Subacute deep vein thrombosis is noted in the right tibioperoneal trunk. Ordering Physician: Conor Chacon Referring Physician: Lilian Rossi M.D. Performed By: Linette Pelayo RVT Physical Exam Const alert and no apparent distress General Appearance: cooperative HEENT normocephalic and head/scalp atraumatic Eyes PERRL, EOMs intact bilaterally and conjunctivae normal Neck supple General: trachea midline Chest inspection of chest normal Resp Auscultation: diminished lung sounds; Negative for rales, rhonchi or wheezes Cardio regular rate and regular rhythm GI normal to inspection, nondistended, normoactive bowel sounds Extremity General Extremity: edema; Negative for clubbing Skin no rashes or lesions noted Neuro CN's II-XII intact bilaterally, moves all extremities and no focal motor deficits Psych cooperative and affect normal Charges/Coding Visit Charges Inpatient E&M: 21135 Subs Hosp L2
[2022-11-19] MEDS: Thiamine Hydrochloride 100 MG Tablet PO (10:21)
[2022-11-19] MEDS: Metoprolol Tartrate 25 MG Tablet PO ×2 (10:22→21:13)
[2022-11-19] MEDS: Folic Acid 1 MG Tablet PO (10:22)
[2022-11-19] MEDS: APIXABAN 5 MG TABLET 10 MG PO ×2 (10:26→21:14)
[2022-11-19] MEDS: Cyanocobalamin 500 MCG Tablet 1000 MCG PO (10:27)
[2022-11-19] MEDS: 0.9% Saline Lock 10 ML Syringe IV ×2 (10:27→12:44)
--- NOTE | 2022-11-19 11:09 | CON.PCM.CA_ITS ---
Assessment & Plan Assessment/Plan (1) Atrial fibrillation with RVR: PLAN: Probably related to patient's PE. Agree with increasing the metoprolol. Will be reasonable to add Cardizem. (2) LV dysfunction: PLAN: Echo during this admission was suboptimal due to patient being in A-fib with RVR. Recommend repeating an echo as an outpatient once patient's heart rate is under control. If patient continues to have LV dysfunction then he should have further work-up for this. (3) Edema of both lower legs: PLAN: Likely multifactorial secondary to DVT, PE with pulmonary hypertension, LV dysfunction and also hypoalbuminemia. Will give 1 dose of Lasix. HPI Consult Data Date of Consult: 11/19/22 HPI Narrative Reason for Consultation: A-fib with RVR HPI Narrative: REGGIE LIANG, is a 72 M who presents with shortness of breath and was found to have bilateral extensive PEs. He was also found to have A-fib with RVR and cardiology consult was requested. Patient states that his shortness of breath is improved since admission. 2D echo was obtained which revealed an EF of around 45%. However the echo was suboptimal for evaluation of ventricular function due to patient being in A-fib with RVR. Review of systems: All systems reviewed. All else is negative except that in HPI [facility] Medical History (Updated 11/19/22 @ 11:[address] Rachel Streeter MD) Arthritis Diarrhea DVT (deep venous thrombosis) SOB (shortness of breath) Home Medications apixaban 5 mg (74 tabs) tablets in a dose pack (Eliquis DVT-PE Treat 30D Start) 5 mg PO BID #74 tabs 11/19/22 [Rx Last Taken Unknown] metoprolol tartrate 25 mg tablet 12.5 mg (1/2 x 25 mg) PO BID #30 tabs 11/19/22 [Rx Last Taken Unknown] Allergy/AdvReac Type Severity Reaction Status Date / Time No Known Allergies Allergy Verified 11/16/22 14:20 Family History Other Arthritis Dementia Heart disease Hypertension Surgical History (Updated 11/16/22 @ 19:50 by Genoveva Zelaya) History of bilateral knee replacement History of hernia surgery Social History household members: spouse Smoking Status: Current every day smoker tobacco type: cigarettes Tobacco: How many years used: 15 alcohol intake: current alcohol intake frequency: 3 or more drinks per day substance use type: does not use what type of physical activity do you participate in: none Physical Exam Const alert and oriented x3 HEENT normocephalic Eyes no scleral icterus Resp Resp Narrative: Minimal bibasilar crackles Cardio Cardio Narrative: Irregular rhythm Extremity Extremity Narrative: Bilateral 2+ pitting edema. Psych mental status grossly normal Risk Stratification Risk Stratification Applicable: No Charges/Coding Visit Charges Inpatient E&M: 45155 Init Hosp L2 Objective Data Vital Signs: Vital Signs Temp Pulse Resp BP Pulse Ox O2 Del Method 98.0 F 151 H 18 120/93 H 96 Room Air 11/19/22 03:11/19/22 10:11/19/22 03:11/19/22 10:11/19/22 03:11/19/22 04:04 Oxygen Delivery Method Room Air Weight: 162 lb 11.218 oz Body Mass Index (BMI) 22.0 Intake & Output: Intake and Output for Last 24 Hours 11/17/22 11/18/22 11/19/22 23:59 23:59 23:59 Intake Total 944.38 / 1044.38 1429.02 / 1549.02 180 / 180 Output Total 1025 / 1300 475 / 875 750 / 750 Balance -80.62 / -255.62 954.02 / 674.02 -570 / -570 Lab / Micro Data 11/19/22 05:28 11/19/22 05:28 Labs: Laboratory Results - last 24 hr 11/19/22 05:28: WBC 9.1, RBC 3.99 L, Hgb 13.2, Hct 41.3, MCV 103.5 H, MCH 33.1 H , MCHC 32.0, RDW Std Deviation 52.8 H, RDW Coeff of Bartolome 13.9, Plt Count 339, MPV 10.9, Immature Gran % (Auto) 0.900, Neut % (Auto) 71.0 H, Lymph % (Auto) 15.7 L, [place] % (Auto) 11.2 H, Eos % (Auto) 0.5, Baso % (Auto) 0.7, Absolute Neuts (auto) 6.5, Absolute Lymphs (auto) 1.43, Nucleated RBC % 0, Sodium 138, Potassium 4.1, Chloride 105, Carbon Dioxide 30.0, Anion Gap 3 L, BUN 20 H, Creatinine 0.88, Estim Creat Clear Calc 80.37, Est GFR (MDRD) Af Amer 110, Est GFR (MDRD) Non-Af 91, BUN/Creatinine Ratio 22.8 H, Glucose 104, Calcium 8.7 Cardiology Labs/Tests 11/19/22 05:28: WBC 9.1, RBC 3.99 L, Hgb 13.2, Hct 41.3, MCV 103.5 H, MCH 33.1 H , MCHC 32.0, Plt Count 339, MPV 10.9, Immature Gran % (Auto) 0.900, Neut % (Auto) 71.0 H, Lymph % (Auto) 15.7 L, [place] % (Auto) 11.2 H, Eos % (Auto) 0.5, Baso % (Auto) 0.7, Absolute Neuts (auto) 6.5, Nucleated RBC % 0, Sodium 138, Potassium 4.1, Chloride 105, Carbon Dioxide 30.0, Anion Gap 3 L, BUN 20 H, Creatinine 0.88, Est GFR (MDRD) Af Amer 110, Est GFR (MDRD) Non-Af 91, BUN/Creatinine Ratio 22.8 H, Glucose 104, Calcium 8.7 Rhythm: EKG: ECHO: Stress Test: Cardiac Cath: PCI: CT Surgery: Holter monitor: EPS: PPM: CXR: Chest CT Scan: Radiography Diagnostic Testing: Radiology Impression Aorta Iliac Vascular Ultrasound 11/17/22 13:40 Interpretation Summary Inferior vena cava and bilateral common iliac veins patent with normal venous flow pattern Ordering Physician: Conor Chacon Referring Physician: Lilian Rossi M.D. Performed By: Linette Pelayo RVT Venous Doppler Study 11/17/22 13:40 Interpretation Summary Subacute deep vein thrombosis is noted in the left distal external iliac vein, common femoral vein, femoral vein. Chronic deep vein thrombosis noted in the left popliteal vein, tibioperoneal trunk vein Subacute deep vein thrombosis is noted in the right tibioperoneal trunk. Ordering Physician: Conor Chacon Referring Physician: Lilian Rossi M.D. Performed By: Linette Pelayo RVT
--- NOTE | 2022-11-19 11:41 | PN_ITS ---
Subjective Subjective Patient seen and examined. He felt well and had no active complaints. He was hoping to be discharged today. However, his HR has been poorly controlled and he has been going in and out of afib. HR goes as high as the 150s and 160s intermittently. Review of systems is otherwise negative. Objective Data Objective Data Vital Signs: Vital Signs Temp Pulse Resp BP Pulse Ox O2 Del Method 98.0 F 151 H 18 120/93 H 96 Room Air 11/19/22 03:11/19/22 10:11/19/22 03:11/19/22 10:11/19/22 03:11/19/22 04:04 Oxygen Delivery Method Room Air Weight: 162 lb 11.218 oz Body Mass Index (BMI) 22.0 Intake & Output: Intake and Output for Last 24 Hours 11/17/22 11/18/22 11/19/22 23:59 23:59 23:59 Intake Total 944.38 / 1044.38 1429.02 / 1549.02 180 / 180 Output Total 1025 / 1300 475 / 875 750 / 750 Balance -80.62 / -255.62 954.02 / 674.02 -570 / -570 Lab / Micro Data 11/19/22 05:28 11/19/22 05:28 Labs: Laboratory Results - last 24 hr 11/19/22 05:28: WBC 9.1, RBC 3.99 L, Hgb 13.2, Hct 41.3, MCV 103.5 H, MCH 33.1 H , MCHC 32.0, RDW Std Deviation 52.8 H, RDW Coeff of Bartolome 13.9, Plt Count 339, MPV 10.9, Immature Gran % (Auto) 0.900, Neut % (Auto) 71.0 H, Lymph % (Auto) 15.7 L, [place] % (Auto) 11.2 H, Eos % (Auto) 0.5, Baso % (Auto) 0.7, Absolute Neuts (auto) 6.5, Absolute Lymphs (auto) 1.43, Nucleated RBC % 0, Sodium 138, Potassium 4.1, Chloride 105, Carbon Dioxide 30.0, Anion Gap 3 L, BUN 20 H, Creatinine 0.88, Estim Creat Clear Calc 80.37, Est GFR (MDRD) Af Amer 110, Est GFR (MDRD) Non-Af 91, BUN/Creatinine Ratio 22.8 H, Glucose 104, Calcium 8.7 Micro: Microbiology 11/16/22 14:57 Nasal Secretion SARS-CoV-2 & FLU Antigen (Rapid) - Final Radiography Diagnostic Testing: Radiology Impression Aorta Iliac Vascular Ultrasound 11/17/22 13:40 Interpretation Summary Inferior vena cava and bilateral common iliac veins patent with normal venous flow pattern Ordering Physician: Conor Chacon Referring Physician: Lilian Rossi M.D. Performed By: Linette Pelayo, RVT Venous Doppler Study 11/17/22 13:40 Interpretation Summary Subacute deep vein thrombosis is noted in the left distal external iliac vein, common femoral vein, femoral vein. Chronic deep vein thrombosis noted in the left popliteal vein, tibioperoneal trunk vein Subacute deep vein thrombosis is noted in the right tibioperoneal trunk. Ordering Physician: Conor Chacon Referring Physician: Lilian Rossi M.D. Performed By: Linette Pelayo RVT Physical Exam Const alert, oriented x3 and no apparent distress General Appearance: cooperative HEENT normocephalic, head/scalp atraumatic, moist oral mucous membranes and oropharynx normal Eyes PERRL and EOMs intact bilaterally Neck no lymphadenopathy and supple Lymph Lymphatic: no lymphadenopathy noted and no lymphedema noted Resp normal respiratory effort, no retractions, no use of accessory muscles and clear to auscultation bilaterally Cardio S1 normal heart sound, S2 normal heart sound and no murmurs Cardio Narrative: afib, HR poorly controlled. afib with intermittent RVR GI normal to inspection, nondistended, normoactive bowel sounds, soft to palpation, non-tender and non-distended Extremity normal capillary refill, no clubbing, cyanosis or edema and no calf tenderness General Extremity: edema bilateral lower extremity Details: moderate and no tenderness to palpation of joints or extremities Skin General Skin Exam: no breakdown and turgor normal Neuro CN's II-XII intact bilaterally, no focal motor deficits, no sensory deficits noted and deep tendon reflexes 2+ bilaterally Sensorium / Orientation: awake Motor Exam: strength 5/5 throughout and general weakness Psych thought process normal, cooperative and affect normal Appearance: appropriate Assessment & Plan Assessment/Plan (1) Bilateral pulmonary embolism: PLAN: Plan #Bilateral PE * CT of the chest showed bilateral filling defects consistent with multiple bilateral pulmonary emboli with no evidence of right cardiac strain. * He had previously been on Eliquis for DVT in his lower extremity. He took the Eliquis for about a year and abruptly weaned himself off of it. * 2D echo done. Switch to p.o. Eliquis 10 mg twice daily for 7 days and then to continue with 5 mg twice daily afterwards for PE treatment. * Patient has never had any age-appropriate screening for malignancy and has never had any hematological work-up for any hypercoagulable state. * CT of the chest did show possible mass versus pneumonitis in the left upper lung. Per pulmonology, he can be followed up on outpatient basis. * By pulmonology, to perform outpatient noncontrast CT chest in about 6 to 8 weeks and also have outpatient PFTs. * will need walking pulse ox prior to discharge #Afib with RVR * patient's HR has been poorly controlled, and has been in intermittent RVR * likely aggravated by bilatearl PE * on metoprolol. Will increase from 12.5mg bid to 25mg bid. * IV lopressor prn. * Cardiology consulted. * already on eliquis as treatment for PE * Duplex of lower extremities showed subacute DVT in the left distal external iliac vein, common femoral vein nad femoral vein, as well as chronic deep vein thrombosis noted in the left popliteal vein, tibioperoneal trunk vein and subacute DVT in the right tibioperoneal trunk. * #Inferior vena cava thrombosis: * As per CT. Vascular surgery consulted and advocated conservative management for now and to follow-up on outpatient basis. * Per vascular surgery, and given duration of symptoms he may not benefit from DVT thrombectomy but duplex will felt further define chronicity. * Patient is going to consider whether he would like thrombectomy if it is indicated. #Left upper lung mass versus pneumonitis: As above. Follow-up on outpatient basis. Pulmonology consulted and reviewed patient. #Left adrenal mass: To follow-up with CT or MRI on outpatient basis. #Alcohol use disorder. Drinks alcohol daily. At risk of withdrawal. On Ativan as needed. On thiamine, folic acid and Multivite. * * DVT prophylaxis; on eliquis treatment dose Disposition: anticipate dc home when patient's HR is better controlled. Charges/Coding Visit Charges Inpatient E&M: 56383 Subs Hosp L3
[2022-11-19] MEDS: Furosemide 20 MG/2 ML VIAL IV (12:43)
[2022-11-19] MEDS: dilTIAZem 30 MG Tablet PO ×2 (12:43→18:00)
[2022-11-20 00:03] VITALS: BP 119/90; PULSE 94
[2022-11-20] MEDS: dilTIAZem 30 MG Tablet PO ×3 (00:06→13:12)
[2022-11-20 03:00] VITALS: BP 123/97; PULSE 96; RESP 16; TEMP 36.4; O2SAT 93
[2022-11-20 06:51] LABS: Absolute Lymphocyte Count 1.44 X10^3/uL (0.83-4.51); Absolute Neutrophil Count 5.7 X10^3/uL (2.0-7.7); Basophil# 0.06 X10^3/uL; Basophil% 0.7 % (0-1); Eosinophil# 0.08 X10^3/uL; Hemoglobin 13.1 g/dL (13.0-16.5); Lymphocyte # 1.44 X10^3/ul (0.83-4.51); Lymphocyte % 17.6 % (19-41); Mean Corpuscular Volume 103.3 fL (80-94); Mean Platelet Vol. 10.7 fl (6.2-12.0); Monocyte# 0.88 X10^3/uL; Monocyte% 10.7 % (0-10); NRBC Flagged by Analyzer 0 % (0-5); Neutrophil # 5.67 X10^3/uL (2.7-7.7); Neutrophil % 69.3 % (47-70); Platelet Count 366 K/mm3 (150-450); RBC Distribution Width CV 13.9 % (11.6-14.6); RBC Distribution Width SD 53.2 fl (35.1-43.9); Red Blood Count 3.97 M/mm3 (4.6-6.2); White Blood Count 8.2 K/mm3 (4.4-11.0)
[2022-11-20 07:39] LABS: Anion Gap 4 (5-15); BUN 19 mg/dL (7-18); BUN/Creat Ratio 23.5 RATIO (10-20); Calcium,Total 9.1 mg/dL (8.5-10.1); Chloride 106 mmol/L (98-107); Creatinine, Serum 0.81 mg/dL (0.70-1.30); EST Glomerular Filtration Rate 100 mL/min (>60); Est Glom Filt Rate - Afr Amer 121 mL/min (>60); Estimated Creatinine Clearance 87.31 ml/min; Glucose 111 mg/dL (74-106); Potassium 4.2 mmol/L (3.5-5.1); Sodium Level 140 mmol/L (136-145)
[2022-11-20 09:00] VITALS: BP 138/108; PULSE 96; RESP 16; TEMP 36.8; O2SAT 93
[2022-11-20] MEDS: Thiamine Hydrochloride 100 MG Tablet PO (09:02)
[2022-11-20] MEDS: Cyanocobalamin 500 MCG Tablet 1000 MCG PO (09:02)
[2022-11-20] MEDS: APIXABAN 5 MG TABLET 10 MG PO (09:02)
[2022-11-20 09:03] VITALS: BP 138/108; PULSE 96
[2022-11-20] MEDS: Folic Acid 1 MG Tablet PO (09:03)
[2022-11-20] MEDS: Metoprolol Tartrate 25 MG Tablet PO (09:03)
--- NOTE | 2022-11-20 13:54 | DS.PCM_ITS ---
Providers Date of Admission: 11/16/22 Date of Discharge: 11/20/22 Primary Care Physician: Dr. Lilian Rossi MD Consultations 11/16/22 19:28 Consult: Vascular Surgery Routine Consulting Provider: Conor Chacon Reason for Consult: IVC thrombus EMERGENT Consult: No Notified: Yes Date Notified: 11/16/22 Time Notified: 19:27 Method of Notification: Verbal 11/18/22 08:08 Consult: Web Production Designer / Pulmonary Medicine Routine Consulting Provider: Pulmonary Medicine [facility] Reason for Consult: bilateral PE, lung nodule EMERGENT Consult: No Notified: Yes Date Notified: 11/18/22 Time Notified: 08:08 Method of Notification: Text 11/19/22 10:07 Consult: Cardiology Routine Consulting Provider: Rachel Streeter Reason for Consult: afib with RVR EMERGENT Consult: No Notified: Yes Date Notified: 11/19/22 Time Notified: 10:07 Method of Notification: Text Reason For Visit: BILATERAL PEs, THROMBOSED IVC Diagnosis Discharge Diagnosis (1) Bilateral pulmonary embolism: Status: Acute Code(s): I26.99 - Other pulmonary embolism without acute cor pulmonale Medications at Discharge Home Medications apixaban 5 mg (74 tabs) tablets in a dose pack (Eliquis DVT-PE Treat 30D Start) 5 mg PO BID #74 tabs 11/19/22 diltiazem HCl 120 mg capsule,extended release 24 hr (Cardizem CD) 120 mg PO DAILY #30 caps 11/20/22 metoprolol succinate 50 mg tablet,extended release 24 hr 50 mg PO DAILY #30 tabs 11/20/22 Hospital Course Operations None Procedures None Summary of Care Provided Minutes Spent on Discharge: 55 Hospital Course: Patient is a 72 y/o male with a PMH as outlined who was admitted with a complaint of worsening shortness of breath. He had a history of DVT and had stopped taking his eliquis after about a year. He has started getting short of breath and it worsened over weeks duration. On admission in the ED, vitals were stable. CTA of the chest showed bilateral PE with no evidence of right ventricular dysfunction. 2D echo done showed EF of 45% with mild right ventricular global systolic dysfunction with pulmonary artery systolic pressure of 65 to 70 mmHg. He was started on heparin drip. CTA of the chest also showed evidence of inferior vena cava thrombosis. Vascular surgery was consulted and advocated conservative management for now as given duration of symptoms he may not benefit from DVT thrombectomy. Also question of a left upper lung mass versus pneumonitis and pulmonology was consulted and reviewed patient but did not really think that this was a mass. Imaging done also showed a questionable left adrenal mass and was to follow-up with CT or MRI on outpatient basis. Patient developed A-fib while in the hospital which was likely due to the bilateral PE. He was started on metoprolol. Heart rate was not well controlled so metoprolol dose was also adjusted. Duplex of the lower extremity showed subacute DVT in the left distal external iliac vein, common femoral vein nad femoral vein, as well as chronic deep vein thrombosis noted in the left popliteal vein, tibioperoneal trunk vein and subacute DVT in the right t ibioperoneal trunk. Patient was referred to hematology on outpatient basis for hypercoagulable work-up in light of the extensive bilateral PE and DVTs. Patient's heart rate control improved and he was discharged home on 11/20/2022. He is to follow-up with his primary care doctor, vascular surgery as well as pulmonology and hematology. As mentioned he is to follow-up with his PCP for further work-up for the adrenal mass as seen by CAT scan. He was discharged on p.o. metoprolol 50 mg twice daily as well as Cardizem 120 mg daily per cardiology recommendations. He was also discharged on Eliquis treatment pack. Patient seen and examined prior to discharge. He felt well and had no complaint s. He had an uneventful night and review of systems otherwise negative. Labs and vitals reviewed. Home medication reviewed and reconciled. Physical Exam Const alert, oriented x3 and no apparent distress General Appearance: cooperative, comfortable and well kempt Orientation / Consciousness: awake HEENT normocephalic, head/scalp atraumatic, hearing grossly normal bilaterally, moist oral mucous membranes and oropharynx normal Mouth: oral and palatal mucosa normal Eyes PERRL, EOMs intact bilaterally and conjunctivae normal Neck no lymphadenopathy and supple Lymph Lymphatic: no lymphadenopathy noted and no lymphedema noted Resp normal respiratory effort, no retractions, no use of accessory muscles and clear to auscultation bilaterally Cardio regular rate, regular rhythm, S1 normal heart sound, S2 normal heart sound and no murmurs GI normal to inspection, nondistended, normoactive bowel sounds, soft to palpation, non-tender and non-distended Extremity normal to inspection, full ROM, normal capillary refill, no clubbing, cyanosis or edema and no calf tenderness General Extremity: edema bilateral lower extremity Details: moderate and no tenderness to palpation of joints or extremities Skin no rashes or lesions noted General Skin Exam: no breakdown and turgor normal Neuro oriented x3, CN's II-XII intact bilaterally, moves all extremities, no focal motor deficits, no sensory deficits noted and deep tendon reflexes 2+ bilater ally Sensorium / Orientation: awake and alert Motor Exam: strength 5/5 throughout and general weakness Psych thought process normal, cooperative and affect normal Appearance: appropriate Weight / BMI Weight Weight: 162 lb 11.218 oz Body Mass Index (BMI) 22.0 ABG / Lab / Microbiology Data 11/20/22 05:03 11/20/22 05:03 Laboratory: Laboratory Results - last 24 hr 11/20/22 05:03: WBC 8.2, RBC 3.97 L, Hgb 13.1, Hct 41.0, MCV 103.3 H, MCH 33.0 H , MCHC 32.0, RDW Std Deviation 53.2 H, RDW Coeff of Bartolome 13.9, Plt Count 366, MPV 10.7, Immature Gran % (Auto) 0.700, Neut % (Auto) 69.3, Lymph % (Auto) 17.6 L, [place] % (Auto) 10.7 H, Eos % (Auto) 1.0, Baso % (Auto) 0.7, Absolute Neuts (auto) 5.7, Absolute Lymphs (auto) 1.44, Nucleated RBC % 0, Sodium 140, Potassium 4.2, Chloride 106, Carbon Dioxide 30.0, Anion Gap 4 L, BUN 19 H, Creatinine 0.81, Estim Creat Clear Calc 87.31, Est GFR (MDRD) Af Amer 121, Est GFR (MDRD) Non-Af 100, BUN/Creatinine Ratio 23.5 H, Glucose 111 H, Calcium 9.1 Microbiology: Microbiology 11/16/22 14:57 Nasal Secretion SARS-CoV-2 & FLU Antigen (Rapid) - Final D/C Instructions Discharge Diet: Low fat / Low cholesterol Discharge Activity: Return to Normal Activity Weight Bearing Status: Weight bearing as tolerated Call your doctor if you observe: Fever of 101 or Higher, Shortness of breath, Dizziness, Swelling in the ankles and Chest pain Meaningful Use Info Meaningful Use Diagnoses (Choose all that apply): VTE VTE Anticoag overlap given w/in hospital stay or rx'd at [facility]?: Yes Pt receive overlap for 5 days?: No Reason overlap not ordered, prescribed, or given for 5 days: Treatment Not Indicated Discharge Plan Admission Admit Date/Time: 11/16/22 18:48 Primary Reason for Your Visit: bilateral PE Attending Provider: Diane Tejada Primary Care Provider: Lilian Rossi Consulting Providers: Conor Chacon; Em Ford; Conor Juares; Rogelio Johnson; Rui Justice; Kedar Frazier; Timothy Gallegos; Oli Power; Angella Mohr NP; Rachel Streeter Instructions Patient Instructions: DVT/PE Discharge instruction sheet Discharge Orders/Prescriptions Prescriptions: New Eliquis DVT-PE Treat 30D Start 5 mg (74 tabs) tablets,dose pack 5 mg PO BID Qty: 74 2RF Rx Instructions: take 10mg (2 tabs) twice daily for 7 days (till 11/24/2022), then continue 5mg (one tab) twice daily). metoprolol succinate 50 mg tablet extended release 24 hr 50 mg PO DAILY Qty: 30 2RF diltiazem HCl [Cardizem CD] 120 mg capsule,extended release 24hr 120 mg PO DAILY Qty: 30 2RF Discontinued Eliquis 5 mg tablet 5 mg PO BID Qty: 60 4RF Referrals / Follow Up: Christopher Palacios MD [Med Staff - Active Staff] - Within 1 Month (see to establish care for Afib) Conor Chacon MD [Med Staff - Active Staff] - Within 2 Weeks Michael Elliott MD [Med Staff - Active Staff] - Within 2 Weeks (see for workup for clotting disorder) Lilian Rossi MD [Primary Care Provider] - Edward Sharma DO [Med Staff - Active Staff] - Within 2 Weeks (see gastroenterology for age appropriate screening) Angella Mohr NP, PROFESSOR IN FAMILY [employer]UDIES[employer] [Med Staff - Adv Practice Prof] - 12/23/22 9:15 am Disposition Disposition (needs filled in before D/C Order can be placed): Home, Self Care Charges/Coding Visit Charges Inpatient E&M: 93740 Disch Hosp >30min
--- NOTE | 2022-11-20 15:01 | CASEMGMT ---
EUSEBIA INFANTE discharging on Eliquis. EUSEBIA INFANTE called [facility] to verify cost, copay is over $500 as he has deductible to meet. EUSEBIA INFANTE provided 30 day savings card over phone to [facility] pharmacy and copay $0. EUSEBIA INFANTE updated patient regarding Eliquis cost and voiced understanding. Patient had no further questions or concerns at this time.
== END 2022-11-20 17:03 | disposition home or self-care (01) | DRG 175 ==
LOC: ED 18:47 → PCU 19:00
PROVIDERS: Physician Assistant; Admitting Provider Internal Medicine; Emergency Provider Emergency Medicine; PCP Internal Medicine; Visit Provider Student in an Organized Health Care Education/Training Program
DX: I26.99 Other pulmonary embolism without acute cor pulmonale (principal); I82.220 Acute embolism and thrombosis of inferior vena cava; I82.422 Acute embolism and thrombosis of left iliac vein; I82.412 Acute embolism and thrombosis of left femoral vein; I82.532 Chronic embolism and thrombosis of left popliteal vein; I82.542 Chronic embolism and thrombosis of left tibial vein; I82.552 Chronic embolism and thrombosis of left peroneal vein; I82.451 Acute embolism and thrombosis of right peroneal vein; I82.441 Acute embolism and thrombosis of right tibial vein; I48.91 Unspecified atrial fibrillation; E27.9 Disorder of adrenal gland, unspecified; F10.10 Alcohol abuse, uncomplicated; Y90.9 Presence of alcohol in blood, level not specified; R91.8 Other nonspecific abnormal finding of lung field; Z91.148 Patient's other noncompliance with medication regimen for other reason; Z87.891 Personal history of nicotine dependence
CPT/HCPCS: 36415; 71046; 71275; 74174; 80048; 80053; 83880; 84443; 84484; 85025; 85610; 85730; 87428; 93005; 93306; 93970; 93978; 94668; 97802; 99252; 99285; 99406; J7030; Q9957; Q9967; A4216; C8929; G0463; J1940

== ENCOUNTER → 2022-12-05 | Outpatient (CLI) | payer MEDICARE, BC, SELFPAY ==
--- NOTE | 2022-12-05 14:25 | RAD_ITS ---
STUDY: X-RAY CHEST REASON FOR EXAM: Male, 72 years old. Cough. Shortness of breath. TECHNIQUE: PA and lateral views of the chest. COMPARISON: Comparison is made with prior study dated November 16, 2022. FINDINGS: Hyperinflation. Small right pleural effusion with right basilar infiltrate. Blunting of the left costo phrenic angle with mild increased markings at the left lung base. There is a 1.6 x 2.3 cm nodule in the left upper lobe. Normal size heart. Normal mediastinum and sharon. Normal visualized pulmonary arteries. There is atherosclerotic calcification of the aortic arch with tortuosity. There are degenerative changes of the visualized thoracic spine. Normal visualized ribs, clavicles, and shoulders. There is no demonstrated abnormality of the visualized soft tissue structures of the upper abdomen. RAD/Chest PA and Lateral IMPRESSION: Blunting of both costophrenic angles with increased markings at the lung bases more prominent on the right side suggestive of bibasilar atelectasis. Left upper lobe nodule. Electronically Signed: Haris Dalton MD at 15:05 EDT ,
== END | disposition home or self-care (01) ==
LOC: RAD 14:13
PROVIDERS: PCP Internal Medicine; Referring Provider Surgery Trauma Surgery; Visit Provider Surgery Trauma Surgery
DX: R05.9 Cough, unspecified (principal)
CPT/HCPCS: 71046

== ENCOUNTER → 2022-12-18 | Outpatient (CLI) | payer MEDICARE, BC, SELFPAY ==
--- NOTE | 2022-12-18 13:02 | VDLE_ITS ---
Reason For Study: BLE Pain RIGHT LEFT GSV is normal. GSV is normal. CFV is compressible, spontaneous, phasic, EIV distal is compressible with flow noted in competent and demonstrates normal pulsed wave and color doppler augmentation. CFV is compressible with flow and normal FV is compressible, spontaneous, phasic, augmentation noted. competent and demonstrates normal Profunda vein is compressible at origin with augmentation. bright intraluminal echoes and diminished POP V is compressible, spontaneous, phasic, flow noted at mid thigh. competent and demonstrates normal FV origin is partially compressible. augmentation. Remaining FV is compressible with normal T/P Trunk is partially compressible with venous flow with augmentation. bright intraluminal echoes consistent with PopV and T/P trunk are partially compressible chronic DVT. with bright intraluminal echoes consistent PTV is compressible. with Chronic DVT. RT PerV is compressible. Pop V appears to be INCOMPETENT for greater Procedure than 1.0 second. This is a venous duplex using B-mode, color PTV is compressible. flow and spectral Doppler. LT PerV is compressible. Exam performed in department. The exam was diagnostic. Compare to study on 11/18/2022. VL/Venous Duplex US - [place] Extrem Interpretation Summary Subacute deep vein thrombosis is noted in the left femoral vein. Chronic deep vein thrombosis is noted in the left profunda vein, popliteal vein ,tibioperoneal trunk vein. Chronic deep vein thrombosis is noted in the right tibio-peroneal trunk. Partial resolution of thrombus since prior imaging Ordering Physician: Conor Chacon Referring Physician: Lilian Rossi Performed By: Javier Rod RVT
== END | disposition home or self-care (01) ==
LOC: CVS 13:01
PROVIDERS: PCP Internal Medicine; Referring Provider Surgery Trauma Surgery; Visit Provider Surgery Trauma Surgery
DX: M79.662 Pain in left lower leg (principal)
CPT/HCPCS: 93970

== ENCOUNTER → 2022-12-26 | Outpatient (CLI) | payer MEDICARE, BC, SELFPAY ==
[2022-12-26 11:12] VITALS: PULSE 63; PULSE 64; PULSE 68; PULSE 72; PULSE 85; PULSE 91; PULSE 94; PULSE 95; O2SAT 92; O2SAT 93; O2SAT 94; O2SAT 95; O2SAT 98
--- NOTE | 2022-12-27 06:00 | PCM.PSN.6M ---
PSN 6 Minute Walk Test 6 Minute Walk Test 6 Minute Walk Test: 6 Minute Walk Test PSN:6-Minute Walk Test Start: 12/26/22 11:11 Freq: Status: Active Protocol: [id number] Document 12/26/22 11:12 AEH (Rec: 12/26/22 11:15 AE Desktop) 6 Minute Walk Test Date Performed 12/26/22 Time Performed 11:15 Height 6 ft Weight: 73.482 kg Weight in Pounds 162.[address]: Yani Assistive device used: None Pre-test Oxygen Delivery Method Room Air Pulse Ox 98 Pulse Rate (60-100) 94 Dyspnea Margareth Scale (0-10) 0 Exertion Margareth Scale (6-20) 6 1st minute Oxygen Delivery Method Bi-pap Pulse Ox 95 Pulse Rate (60-100) 85 2nd minute Oxygen Delivery Method Room Air Pulse Ox 94 Pulse Rate (60-100) 64 3rd minute Oxygen Delivery Method Room Air Pulse Ox 92 Pulse Rate (60-100) 72 4th minute Oxygen Delivery Method Room Air Pulse Ox 93 Pulse Rate (60-100) 91 5th minute Oxygen Delivery Method Room Air Pulse Ox 93 Pulse Rate (60-100) 63 6th minute Oxygen Delivery Method Room Air Pulse Ox 92 Pulse Rate (60-100) 68 Dyspnea Margareth Scale (0-10) 0 Exertion Margareth Scale (6-20) 12 Post-test Oxygen Delivery Method Room Air Pulse Rate (60-100) 95 Dyspnea Margareth Scale (0-10) 77 Full Laps Walked 18 Partial Lap, Number of Tiles Walked 0 Total Distance Walked (ft) 1062 Interpretation Interpretation: The patient was able to ambulate 1062 feet over the course of 6 minutes on room air with no assistive devices or breaks. The patient did experience significant desaturation from a baseline of 98% to as low as 92%. No significant tachycardia was noted. These findings are consistent with a respiratory limitation exercise tolerance. Recommendations Recommendations: No supplemental oxygen is indicated at this time. However, patient will need to be followed closely given level of desaturation.
== END | disposition home or self-care (01) ==
LOC: PSN 10:48
PROVIDERS: PCP Internal Medicine; Referring Provider Nurse Practitioner Acute Care; Visit Provider Nurse Practitioner Acute Care
DX: R06.02 Shortness of breath (principal)
CPT/HCPCS: 94618

== ENCOUNTER → 2023-01-07 | Outpatient (CLI) | payer MEDICARE, BC, SELFPAY ==
--- NOTE | 2023-01-07 07:07 | AAVD_ITS ---
Reason For Study: HX DVT Inferior Vena Cava Proximal inferior vena cava measures 2.00 x 2.00 cm. in the cross-sectional axis. Proximal inferior vena cava measures 1.95 cm. in the longitudinal axis. Mid inferior vena cava measures 1.82 x 1.86 cm. in the cross-sectional axis. Mid inferior vena cava measures 1.82 cm. in the longitudinal axis. Distal inferior vena cava measures 1.26 x 1.36 cm. in the cross-sectional axis. Distal inferior vena cava measures 1.42 cm. in the longitudinal axis. The inferior vena cava has spontaneous, phasic flow throughout. Left Common Iliac Vein Left common iliac vein measures 1.10 x 1.20 cm. in the cross-sectional axis. Left common iliac vein measures 1.15 cm. in the longitudinal axis. The left common iliac vein has spontaneous, phasic flow throughout. Right Common Iliac Vein Right common iliac vein measures 1.41 x 1.48 cm. in the cross-sectional axis. Right common iliac vein measures 1.40 cm. in the longitudinal axis. The right common iliac vein has spontaneous, phasic flow throughout. Procedure Aorta IVC Iliac vasculature or bypass grafts [id number]. Technically difficult exam due to bowel gas at Distal IVC / Prox CIV. Exam performed in department. VL/Abd Aortic/IVC Duplex scan Interpretation Summary Patent inferior vena cava and bilateral iliac veins with normal flow pattern an d no thrombus visualized Ordering Physician: Conor Chacon Referring Physician: Conor Chacon MD Performed By: Javier Rod, RVT
--- NOTE | 2023-01-07 07:07 | CT_ITS ---
STUDY: CT CHEST WITHOUT CONTRAST REASON FOR EXAM: Male, 72 years old. Multiple nodules RADIATION DOSAGE (If Supplied By Facility): CTDIvol = ( 8.48 ) mGy, DLP = ( 345.36 ) mGycm TECHNIQUE: Transaxial imaging was performed without the administration of intravenous contrast material. Multiplanar coronal and sagittal images were reformatted. Individualized dose optimization techniques were used for this CT. COMPARISON: Comparison is made with prior chest radiograph dated December 05, 2022. Comparison is also made to prior CT scan of the chest dated November 16, 2022. FINDINGS: CHEST Persistent focal density in the posterior aspect of the left upper lobe abutting the pleural surface. This has changed in appearance as compared to prior study. Further radiographic follow-up is recommended. The previously seen small bilateral pleural effusions have resolved. The pulmonary infiltrates have improved at the lung bases with the residual pleural-based nodular soft tissue changes seen more prominent in the peripheral lateral aspect of the right lower lobe. Further radiographic follow-up recommended. There are calcifications of the coronary arteries. There are small lymph nodes within the mediastinum, which are normal in size and morphology most compatible with reactive lymph hyperplasia. Normal hilar regions. Normal unenhanced pulmonary arteries. There is atherosclerotic calcification of the aortic arch. Dilatation of the ascending thoracic aorta with a transverse dimension of 41.7 mm. There are degenerative changes of the thoracic spine. Small hepatic cysts. 2.5 cm fat-containing nodule in the left adrenal gland suggestive of adrenal adenoma. CT/Chest without Contrast IMPRESSION: Change in appearance of the nodular density in the posterior aspect of the left upper lobe as well as at the lung bases where the effusions have cleared. Residual peripheral nodular densities persist at the lung bases. Further radiographic follow-up recommended. Stable hepatic cysts and left adrenal nodule containing fat. Stable dilatation of the ascending thoracic aorta. Electronically Signed: Haris Dalton MD at 8:48 EST ,
== END | disposition home or self-care (01) ==
LOC: CT 07:06
PROVIDERS: PCP Internal Medicine; Referring Provider Surgery Trauma Surgery; Visit Provider Surgery Trauma Surgery
DX: R91.8 Other nonspecific abnormal finding of lung field (principal); I87.1 Compression of vein
CPT/HCPCS: 71250; 93978

== ENCOUNTER → 2023-03-11 | Outpatient (CLI) | payer MEDICARE, BC, SELFPAY ==
--- OUTSIDE RECORDS SUMMARY | 2023-03-11 07:54 | XMS RPT_ITS | CCD ---
Author Name Unknown Address [address] [place] [address] Organization [facility] Care Team Providers Care Pattern Checker Name Role Phone Rody Patel Unavailable Unavailable Finneran, Andrew Unavailable Unavailable Finneran, Andrew Unavailable Unavailable EMILY, SHAUN M Unavailable Unavailable Finneran, Andrew Unavailable Unavailable Finneran, Andrew Unavailable Unavailable Finneran, Andrew Unavailable Unavailable Finneran, Andrew Unavailable Unavailable EMILY, SHAUN M Unavailable Unavailable EMILY, SHAUN M Unavailable Unavailable Finneran, Andrew Unavailable Unavailable Finneran, Andrew Unavailable Unavailable EMILY, SHAUN M Unavailable Unavailable Finneran, Andrew Unavailable Unavailable Finneran, Andrew Unavailable Unavailable Problems Active Problems Problem Classification Problem Date Documented Da te Episodic/Chronic Osteoarthritis (2 sources) Unspecified osteoarthritis, unspecified site; Translations: [Unspecified osteoarthritis, unspecified site] Onset: 05-13-2017 Chronic Substance-related disorders (2 sources) Nicotine dependence, cigarettes, uncomplicated; Translations: [Nicotine dependence, cigarettes, uncomplicated] Onset: 05-13-2017 Chronic Unclassified (2 sources) Right testicular pain; Translations: [Right testicular pain] Onset: 04-10-2017 Past or Other Problems Problem Classification Problem Date Documented Date Episodic/Chronic Abdominal hernia (4 sources) Unilateral inguinal hernia, without obstruction or gangrene, not specified as recurrent; Translations: [Unspecified abdominal hernia without obstruction or gangrene] Onset: 04-10-2017 Episodic Medical examination/evaluatio n (2 sources) Encounter for other preprocedural examination; Translations: [Encounter for other preprocedural examination] Onset: 05-06-2017 Episodic Other and unspecified benign neoplasm (2 sources) Benign neoplasm of connective and other soft tissue of trunk, unspecified; Translations: [Benign neoplasm of connctv/soft tiss of trunk, unsp] Onset: 05-13-2017 Episodic Other skin disorders (4 sources) Epidermal cyst; Translations: [Follicular cyst of the skin and subcutaneous tissue, unspecified] Onset: 05-06-2017 Episodic Results Test Name Value Interpretation Reference Range Facil ity Encounters Encounter Date Encounter Type Care Provider Facility Start: 05-27-2017 Ambulatory SHAUN Baker [facility] Start: 05-20-2017 Ambulatory SHAUN Baker [facility] Start: 05-13-2017 Ambulatory Andrew [place] [facility] Start: 05-06-2017 Ambulatory SHAUN Baker [facility] Start: 04-10-2017 Emergency department patient visit Rody Patel [facility] Payers Date Payer Category Payer Policy ID Unknown Summary Purpose Family History No Family History Records FoundNo Family History Records FoundNo Family History Records Found Advance Directives No Advanced Directives Records FoundNo Advanced Directives Records FoundNo Advanced Directives Records Found Additional Source Comments (unrecognized sect ion and content) No Status Records FoundNo Status Records FoundNo Status Records Found INFORMATION SOURCE (unrecogn ized section and content) DATE CREATED AUTHOR AUTHOR'S ORGANIZ ATION 10/14/2018 [facility] ([place]) FOR RECORDS PERTAINING TO PATIENTS WHO ARE OR HAVE BEEN ENROLLED IN A CHEMICAL DEPENDENCY/SUBSTANCEABUSE PROGRAM, SOME INFORMATION MAY BE OMITTED. This clinical summary was aggregated from multiple sources. Caution should be exercised in using it in the provision of clinical care. This summary normalizes information from multiple sources, and as a consequence, information in this document may materially change the coding, format and clinical context of patient data. In addition, data may be omitted in some cases. CLINICAL DECISIONS SHOULD BE BASED ON THE PRIMARY CLINICAL RECORDS. [facility]. provides no warranty or guarantee of the accuracy or completeness of information in this document.
--- NOTE | 2023-03-11 08:00 | PET_ITS ---
EXAMINATION: FDG PET CT HISTORY: 72-year-old male with history of pulmonary nodularity. COMPARISON EXAMINATION: CT of the chest report 01/07/2023 INDEX LESION SIZE SUV INTERPRETATION Right upper lung field-right upper lobe 27.6 mm (largest) 4.2 (max) Fulfills quantitative criteria for viable neoplasm, histopathologic investigation recommended TECHNIQUE: Following the intravenous administration of 10.06 mCi of F-18 deoxyglucose, via the left antecubital fossa, multiplanar image acquisitions of the neck, chest, abdomen and pelvis to the level of mid thigh, obtained at one hour post radiopharmaceutical administration contemporaneously interpreted with the current CT of the neck, chest, abdomen and pelvis to the level of mid thigh, dated 03/11/2023 via coregistration reveals: BLOOD GLUCOSE LEVEL:?80 mg/dL?HEIGHT:?72 inches?WEIGHT: 159 lbs. FINDINGS: Head/Neck: There is no evidence of abnormal increased glucose metabolism in the pharyngeal mucosal space, parapharyngeal space, bilateral-lateral and anterior neck, hypopharynx and distribution of the larynx. Prominent uptake is defined in the laryngeal structures to the right and left of midline without an anatomic correlate. The visualized portion of the cerebral cortical-subcortical structures demonstrate symmetric and preserved glucose metabolism. CHEST: Several foci of increased radiopharmaceutical concentration are demonstrated in the right upper lung field, right upper lobe. The calculated standard uptake value is 4.2. The largest corresponding parenchymal change manifests a maximal diameter of 27.6 mm. Prominent uptake appears evident in the descending thoracic aorta commensurate with activated leukocytes associated with atherosclerotic plaque formation. Pertinent chest CT findings are as follows. Parenchymal changes defined in the left upper posterior lung zone are nonglucose avid. Atherosclerotic calcification is noted in the thoracic aorta. The maximal axial diameter of the ascending thoracic aorta is 46.4 mm. Coronary calcification is observed. Bilateral axillary and mediastinal soft tissue densities demonstrate no evidence of increased tracer uptake. Abdomen/Pelvis: Increased tracer concentration is defined in the rectum-rectal vault with a calculated standard uptake value of 13.6 most consistent with physiologic tracer distribution. Normal physiologic uptake is noted in the hepatic (2.8) and splenic parenchyma. There is symmetric demonstration of the right and left kidneys, normal uptake in the urinary bladder and visualized intestinal tract. Review of CT of the abdomen and pelvis reveals the following. Atherosclerotic calcification is defined in the abdominal aorta. The maximal. Abdominal and pelvic arterial calcification is observed. Calcification is demonstrated in the pancreatic body and tail. SKELETAL: Degenerative changes noted in the axial skeletal structures demonstrate no evidence of quantitatively significant enhanced FDG uptake. PET/PET/CT Tumor Base -Thigh Init IMPRESSION: 1. The increase in radiopharmaceutical concentration defined in the right upper lung field, right upper lobe fulfills quantitative criteria for viable neoplasm with single-point technique. Histopathologic analysis is recommended. 2. No other quantitatively significant increased labeled glucose uptake is identified. Electronic Signature Lukas Trinidad D.O. Accurate Quantification of SUVs for this report are calculated using the exclusive [employer]. (U.S. Patent No. [phone] [phone], [phone] B2 [phone] [place] patent [id number] [id number]). Standardization and correction of the FDG SUV metric via [employer]AN technology allow for vendor non-specific objective quantitative examination comparison and optimization of the sensitivity and specificity of the FDG PET-CT examination. . [email or web address]://www.mdpi.[email or web address]/14/11/1579 [email or web address] [email or web address] Electronically Signed: Lukas Trinidad DO at 16:04 EST ,
== END | disposition home or self-care (01) ==
LOC: ONC 07:46
PROVIDERS: PCP Internal Medicine; Referring Provider Internal Medicine Critical Care Medicine; Visit Provider Internal Medicine Critical Care Medicine
DX: R91.1 Solitary pulmonary nodule (principal)
CPT/HCPCS: 78815; A9552

== ENCOUNTER → 2023-03-14 | Outpatient (CLI) | payer MEDICARE, BC, SELFPAY ==
[2023-03-14 12:25] LABS: Platelet Count 301 K/mm3 (150-450)
[2023-03-14 13:03] LABS: Partial Thromboplast Time 26.1 Seconds (24.1-36.2); Prothrombin Time (Protime)PT. 13.3 SECONDS (11.7-14.9)
[2023-03-14 13:11] LABS: Homocysteine 8.8 umol/L (3.2-10.7)
[2023-03-24 15:07] LABS: Anti-Cardiolipin Ab, IgA, Qn < 9 APL U/mL (0-11); Anti-Cardiolipin Ab, IgG, Qn < 9 GPL U/mL (0-14); Anti-Cardiolipin Ab, IgM, Qn < 9 MPL U/mL (0-12); Anti-Thrombin 3 AG, Immunol 104 % (72-124); Antithrombin 3 Function 116 % (75-135); Complement C3 122 mg/dL (82-167); Dilute Prothrombin Time (dPT) 40.1 sec (0.0-47.6); Dilute Russell Viper Venom 35.4 sec (0.0-47.0); Interpretation Comment: (.); PTT-LA 31.3 sec (0.0-43.5); Protein C, Functional 101 % (73-180); Protein S, Free 112 % (61-136); Protein S, Funtional 105 % (63-140); Protein S, Total 106 % (60-150); Thrombin Time 15.8 sec (0.0-23.0); dPT Confirm Ratio 1.04 Ratio (0.00-1.34)
== END | disposition home or self-care (01) ==
LOC: PAVLAB 11:53
PROVIDERS: PCP Internal Medicine; Referring Provider Nurse Practitioner Acute Care; Visit Provider Nurse Practitioner Acute Care
DX: I48.91 Unspecified atrial fibrillation (principal); I26.99 Other pulmonary embolism without acute cor pulmonale; I50.1 Left ventricular failure, unspecified; I82.409 Acute embolism and thrombosis of unspecified deep veins of unspecified lower extremity; R06.02 Shortness of breath
CPT/HCPCS: 36415; 81240; 81241; 83090; 85049; 85300; 85301; 85303; 85305; 85306; 85610; 85730; 86147; 86160

== ENCOUNTER 2023-03-26 09:13 | Outpatient (CLI) | payer MEDICARE, BC, SELFPAY ==
[2023-03-26] VITALS (17 sets, daily range): BP systolic 119–154; BP diastolic 75–116; PULSE 71–96; RESP 16–23; TEMP 36.3; O2SAT 94–100; BMI 22.2
--- NOTE | 2023-03-26 | LUNG_PTH ---
PATHOLOGY RESULTS PATIENT: REGGIE LIANG LOC: CT U#:[id number] AGE/SX: 72/M ROOM: RE03/26/[address]: RAJENDRA Recinos : 1950 BED: DIS: 03/26/2023 SPEC #: [id number] RECD: 03/26/23 12:29 STATUS: NINA JAXON #: [id number] ALIYAH: 03/26/23 00:[address]: Angella Mohr NP DEPT: SURGICAL PATHOLOGY RECD BY: Judi Clay ENTERED: 03/26/23 12:30 SP TYPE: LUNG BX EDUARDA DR: Dr. Lilian Rossi MD Tissues: Lung, NOS Procedures: Surgery Specimen Level IV HEADER OPERATION: CT-guided lung nodule biopsy PRE-OP DIAGNOSIS: Right lung mass TISSUE SUBMITTED: Right lung mass 20-gauge x5 MICROSCOPIC DIAGNOSIS Right lung mass, CT-guided core biopsy: Fragments of benign lung parenchymal tissue intra-alveolar hemorrhage. Negative for malignancy. See comment. FORREST:nery 03/27/2023 COMMENT The specimen is evaluated at the time of biopsy by Dr. Haynes. Immediate Evaluation = Negative for malignant cells. Correlation with clinical, radiologic findings and appropriate follow up are necessary. Case has been reviewed in consultation with Dr. Woodall who concurs with the above diagnosis. IDC:AM MICROSCOPIC DESCRIPTION Slides are reviewed. GROSS DESCRIPTION Received in fixative is one container labeled with the patient's name and designated right lung. The specimen consists of multiple irregular fragments of light tristan soft tissue that in aggregate measure 1.0 x 0.1 x 0.1 cm. The specimen is totally submitted in one cassette. Two touch imprints are prepared at the time of core biopsy. / FORREST:nery 03/26/2023 TC:5 CPT: 77155, [id number]
--- OUTSIDE RECORDS SUMMARY | 2023-03-26 09:38 | XMS RPT_ITS | CCD ---
Author Name Unknown Address [address] [place] [address] Organization [facility] Care Team Providers Care Rotating Equipment Engineer Name Role Phone Rody Patel Unavailable Unavailable [...] Provider Facility Start: 05-27-2017 Ambulatory SHAUN Baker [facility] Start: 05-20-2017 Ambulatory SHAUN Baker [facility] Start: 05-13-2017 Ambulatory Andrew [place] [facility] Start: 05-06-2017 Ambulatory SHAUN Baker [facility] Start: 04-10-2017 Emergency department patient visit Rody Patel [facility] Payers Date Payer Category Payer Policy [...] DATE CREATED AUTHOR AUTHOR'S ORGANIZ ATION 10/14/2018 [facility] ([place]) FOR RECORDS PERTAINING TO PATIENTS [...] BE BASED ON THE PRIMARY CLINICAL RECORDS. [facility]. provides no warranty or guarantee of the accuracy or completeness of information in this document.
[2023-03-26] MEDS: 0.9% Normal Saline (250mL Bag) 250 ML 15 ML IV (09:46)
[2023-03-26] MEDS: 0.9% Saline Lock 10 ML Syringe IV (09:46)
[2023-03-26] MEDS: Midazolam 2 MG/2 ML Syringe IV (11:13)
[2023-03-26] MEDS: fentaNYL 100 MCG/2 ML Ampul IV (11:14)
[2023-03-26] MEDS: Lidocaine 2% (20 ml mdv) 20 ML Vial INFILT (11:32)
--- NOTE | 2023-03-26 11:45 | RAD_ITS ---
STUDY: X-RAY CHEST REASON FOR EXAM: Male, 72 years old. Post lung biopsy -- Immediately post lung biopsy TECHNIQUE: AP inspiration and expiration views. COMPARISON: Comparison is made with prior study dated December 05, 2022. FINDINGS: No evidence of pneumothorax on the immediate post right lung biopsy radiographs. Focal hematoma at the biopsy site. RAD/Chest Insp/Exp 2 View IMPRESSION: No evidence of pneumothorax on the immediate post right lung biopsy radiographs. Electronically Signed: Haris Dalton MD at 12:38 EST ,
--- NOTE | 2023-03-26 11:55 | PCM.OP.PRO ---
Procedure Report Date of Procedure: 03/26/23 Assessment & Plan Assessment/Plan (1) Abnormal PET of right lung: PLAN: PROCEDURE: CT GUIDED CORE NEEDLE LUNG BIOPSY ORDERING PROVIDER: Angella Mohr CNP INDICATION: Male, 72 years old. Right upper lobe nodule reactive on PET. PROVIDER: MAHAMED [place] CONSENT: Written informed consent was obtained having explained the risks, benefits and alternatives in detail with the patient who accepted the risks and agreed to proceed. Laboratory review and clinical assessment was performed. PRE-PROCEDURE SEDATION ASSESSMENT: Current history and physical dictated by referring physician and reviewed. No clinical changes since date of exam. Patient has an ASA Class of 2. PROCEDURAL SEDATION PROTOCOL: The Drugs used were: 2 mg Versed, IV, and 50 mcg Fentanyl, IV. The sedation time was: 23 minutes, starting at 1113 and terminated at 1141. The procedural sedation protocol was independently monitored by the department nurse. RADIATION DOSAGE (If Supplied By Facility): CTDIvol = 30.45 mGy, DLP = 315.71 mGycm Individualized dose optimization techniques were used for this CT. TECHNIQUE: The patient was placed in a supine position. A noncontrast CT was performed to localize the lesion in the right upper lobe. The skin surface was prepped and draped in a sterile fashion. 2% lidocaine was used for local anesthesia. Using CT guidance, a 20-gauge coaxial biopsy device was advanced to the periphery of the lesion. A total of 5 core specimens were obtained. Specimens were microscopically reviewed by pathology in the CT suite and placed in formalin solution. BioSentry tract sealant system was deployed at the biopsy site, and the biopsy needle was removed. A sterile occlusive dressing was applied to the biopsy site. The patient tolerated the procedure well. An immediate chest xray was ordered, per protocol. A negative biopsy does not exclude malignancy. Further imaging or clinical followup based on patient condition and degree of clinical suspicion for malignancy. Suggest rebiopsy, if biopsy results do not match with clinical scenario. IMPRESSION: 1. CT directed core needle biopsy of right upper lobe nodule using CT image guidance with image documentation as described. Pathology results are pending. 2. Procedural Sedation protocol utilized with independent monitoring by the department nurse. Procedures Radiology Radiology CT Procedures: 28237 Biopsy Lung
--- NOTE | 2023-03-26 13:50 | RAD_ITS ---
STUDY: X-RAY CHEST REASON FOR EXAM: Male, 72 years old. 2 hr post lung biopsy -- 2 hours post lung biopsy TECHNIQUE: AP inspiration and expiration views. COMPARISON: Comparison is made with prior examination done earlier in the day. FINDINGS: The patient is status post right lung biopsy. There is no evidence of pneumothorax. RAD/Chest Insp/Exp 2 View IMPRESSION: No evidence of pneumothorax on the two-hour post right lung biopsy radiographs. Electronically Signed: Haris Dalton MD at 15:05 EST ,
== END 2023-03-26 23:59 | disposition home or self-care (01) ==
LOC: CT 09:14
PROVIDERS: PCP Internal Medicine; Referring Provider Nurse Practitioner Acute Care; Visit Provider Nurse Practitioner Acute Care
DX: R91.8 Other nonspecific abnormal finding of lung field (principal); R94.2 Abnormal results of pulmonary function studies
CPT/HCPCS: 32408; 71046; 77012; 88305; 99156; J7050; A4216; C2613

== ENCOUNTER → 2023-03-28 | Outpatient (CLI) | payer MEDICARE, BC, SELFPAY ==
--- NOTE | 2023-03-28 09:35 | RAD_ITS ---
STUDY: X-RAY CHEST REASON FOR EXAM: Male, 72 years old. dyspnea after recent lung biopsy TECHNIQUE: PA and lateral views of the chest. COMPARISON: Comparison is made with prior study dated 11/24/2021. FINDINGS: Persistent focal increased markings in the right upper lobe although this has improved as compared to prior study. Stable blunting of both costophrenic angles. Hyperinflation. Normal size heart. Normal mediastinum and sharon. Normal visualized pulmonary arteries. There is atherosclerotic calcification of the aortic arch with tortuosity. Normal visualized thoracic spine. Normal visualized ribs, clavicles, and shoulders. There is no demonstrated abnormality of the visualized soft tissue structures of the upper abdomen. RAD/Chest PA and Lateral IMPRESSION: Hyperinflation. COPD. Interval decrease in size of the previously seen nodular density in the right upper lobe Electronically Signed: Haris Dalton MD at 9:54 EST ,
--- OUTSIDE RECORDS SUMMARY | 2023-03-28 10:04 | XMS RPT_ITS | CCD ---
Author Name Unknown Address [address] [place] [address] Organization [facility] Care Team Providers Care Tattooer Name Role Phone Rody Patel Unavailable Unavailable [...] Provider Facility Start: 05-27-2017 Ambulatory SHAUN Baker [facility] Start: 05-20-2017 Ambulatory SHAUN Baker [facility] Start: 05-13-2017 Ambulatory Andrew [place] [facility] Start: 05-06-2017 Ambulatory SHAUN Baker [facility] Start: 04-10-2017 Emergency department patient visit Rody Patel [facility] Payers Date Payer Category Payer Policy [...] DATE CREATED AUTHOR AUTHOR'S ORGANIZ ATION 10/14/2018 [facility] ([place]) FOR RECORDS PERTAINING TO [...] BE BASED ON THE PRIMARY CLINICAL RECORDS. [facility]. provides no warranty or guarantee of the accuracy or completeness of information in this document.
== END | disposition home or self-care (01) ==
PROVIDERS: PCP Internal Medicine; Referring Provider Nurse Practitioner Acute Care; Visit Provider Nurse Practitioner Acute Care
DX: R06.02 Shortness of breath (principal)
CPT/HCPCS: 71046

== ENCOUNTER → 2023-07-17 | Outpatient (CLI) | payer MEDICARE, BC, SELFPAY ==
--- NOTE | 2023-07-17 12:42 | CT_ITS ---
STUDY: CT CHEST WITHOUT CONTRAST REASON FOR EXAM: Male, 72 years old. Lung mass RADIATION DOSAGE (If Supplied By Facility): CTDIvol = ( 6.59 ) mGy, DLP = ( 250.70 ) mGycm TECHNIQUE: Transaxial imaging was performed without the administration of intravenous contrast material. Multiplanar coronal and sagittal images were reformatted. Individualized dose optimization techniques were used for this CT. COMPARISON: Comparison is made with prior study dated January 07, 2023. FINDINGS: CHEST The previously seen irregular density in the posterior aspect of the left upper lobe is less prominent at this time. Stable minimal linear scarring at the right lung base. The previously seen pleural-based density in the lateral aspect of the right lower lobe as well as in the posterior aspect of the right middle lobe have almost resolved. There is no demonstrated pleural abnormality. There are calcifications of the coronary arteries. There are small lymph nodes within the mediastinum, which are normal in size and morphology most compatible with reactive lymph hyperplasia. Normal hilar regions. Normal unenhanced pulmonary arteries. There is atherosclerotic calcification of the aortic arch. Stable dilatation of the root of the ascending thoracic aorta. Normal osseous structures. Small hiatal hernia. Hypodensities seen in the liver suggestive of small cysts. These are unchanged. Stable 2.5 cm fat-containing nodule in the left adrenal gland. CT/Chest without Contrast IMPRESSION: Interval improvement in the focal area of the irregularity in the posterior aspect of the left upper lobe as well as in both lower lobes. Electronically Signed: Haris Dalton MD at 13:32 EDT ,
== END | disposition home or self-care (01) ==
LOC: CT 12:37
PROVIDERS: PCP Internal Medicine; Referring Provider Nurse Practitioner Acute Care; Visit Provider Nurse Practitioner Acute Care
DX: R91.8 Other nonspecific abnormal finding of lung field (principal)
CPT/HCPCS: 71250

== ENCOUNTER 2024-01-08 09:45 | Observation (INO) | payer MEDICARE, BC, SELFPAY ==
[2024-01-08] VITALS (15 sets, daily range): BP systolic 108–148; BP diastolic 81–103; PULSE 54–133; RESP 16–29; TEMP 36.4–37.2; O2SAT 88–99; BMI 21.4; BMI 20.9
[2024-01-08] MEDS: MethylPREDNISolone 125 MG/2 ML Vial IV (10:23)
[2024-01-08] MEDS: Ipratropium/Albuterol Sulfate 3 ML AMPUL.NEB INHALATION ×3 (10:28→23:34)
[2024-01-08 10:44] LABS: Absolute Lymphocyte Count 0.75 X10^3/uL (0.83-4.51); Absolute Neutrophil Count 7.1 X10^3/uL (2.0-7.7); Basophil# 0.04 X10^3/uL; Basophil% 0.5 % (0-1); Eosinophil# 0.01 X10^3/uL; Eosinophils% 0.1 % (0-5); Hematocrit 49.8 % (40-54); Hemoglobin 16.6 g/dL (13.0-16.5); Lymphocyte # 0.75 X10^3/ul (0.83-4.51); Lymphocyte % 8.6 % (19-41); Mean Corp Hgb Conc 33.3 g/dL (32-36); Mean Corpuscular Hgb 32.9 pg (27.0-32.0); Mean Corpuscular Volume 98.8 fL (80-94); Mean Platelet Vol. 10.6 fl (6.2-12.0); Monocyte# 0.73 X10^3/uL; Monocyte% 8.4 % (0-10); NRBC Flagged by Analyzer 0 % (0-5); Neutrophil # 7.14 X10^3/uL (2.7-7.7); Neutrophil % 81.9 % (47-70); Platelet Count 246 K/mm3 (150-450); Red Blood Count 5.04 M/mm3 (4.6-6.2); White Blood Count 8.7 K/mm3 (4.4-11.0)
[2024-01-08 11:12] LABS: Anion Gap 7 (5-15); BUN 19 mg/dL (7-18); BUN/Creat Ratio 16.4 RATIO (10-20); Calcium,Total 9.8 mg/dL (8.5-10.1); Chloride 102 mmol/L (98-107); Creatinine, Serum 1.16 mg/dL (0.70-1.30); EST Glomerular Filtration Rate 66 mL/min (>60); Est Glom Filt Rate - Afr Amer 80 mL/min (>60); Estimated Creatinine Clearance 58.38 ml/min; Glucose 130 mg/dL (74-106); Potassium 5.3 mmol/L (3.5-5.1); Sodium Level 136 mmol/L (136-145); Troponin-I HS (w/2H Reflex) 8 pg/mL (3.0-78.0)
[2024-01-08 12:34] LABS: Blood Gas Specimen Type VEN; O2 Delivery Device Not entered; SITE Not entered; VBG BASE EXCESS 0 mmol/L (-1.0-3.5); VBG Bicarbonate 25 mmol/L (22-26); VBG PO2 43 mmHg (25-40); VBG SO2 76 % (50-70); VBG TCO2 26 mmol/L (23-33); VBG pCO2 44.1 mmHg (41-51); VBG pH 7.36 (7.32-7.42)
[2024-01-08 12:39] LABS: Reflex Troponin-HS? (from REC) Y
[2024-01-08 13:55] LABS: Troponin-I HS 9 pg/mL (3.0-78.0)
[2024-01-08] MEDS: Azithromycin 250 MG Tablet 500 MG PO (17:19)
[2024-01-08] MEDS: Ensure Plus High Protein 120 ML LIQUID PO (22:16)
[2024-01-08] MEDS: APIXABAN 5 MG TABLET PO (22:17)
[2024-01-08] MEDS: guaiFENesin 1,200 MG Tablet 1200 MG PO (22:17)
[2024-01-08 23:03] LABS: ALB/GLOB Ratio 0.9 RATIO (0.9-2.4); AST(SGOT) 13 U/L (15-37); Alanine Aminotransfer ALT/SGPT 21 U/L (16-61); Albumin, Serum 2.8 g/dL (3.2-5.0); Alkaline Phosphatase 74 U/L (45-117); Anion Gap 5 (5-15); BUN 29 mg/dL (7-18); BUN/Creat Ratio 23.2 RATIO (10-20); Calcium,Total 8.9 mg/dL (8.5-10.1); Chloride 104 mmol/L (98-107); Creatinine, Serum 1.25 mg/dL (0.70-1.30); EST Glomerular Filtration Rate 60 mL/min (>60); Est Glom Filt Rate - Afr Amer 73 mL/min (>60); Estimated Creatinine Clearance 52.89 ml/min; Globulin 3.1 g/dL (2.2-4.2); Glucose 285 mg/dL (74-106); Magnesium 2.2 mg/dL (1.6-2.6); Potassium 4.6 mmol/L (3.5-5.1); Protein, Total 5.9 g/dL (6.4-8.2); Sodium Level 136 mmol/L (136-145)
[2024-01-09] VITALS (10 sets, daily range): BP systolic 98–123; BP diastolic 77–80; PULSE 87–126; RESP 16–20; TEMP 35.5–36.8; O2SAT 93–99
[2024-01-09] MEDS: Ipratropium/Albuterol Sulfate 3 ML AMPUL.NEB INHALATION ×3 (04:00→11:11)
[2024-01-09 08:01] LABS: Absolute Lymphocyte Count 0.44 X10^3/uL (0.83-4.51); Basophil# 0.01 X10^3/uL; Basophil% 0.1 % (0-1); Hematocrit 42.4 % (40-54); Hemoglobin 13.6 g/dL (13.0-16.5); Lymphocyte # 0.44 X10^3/ul (0.83-4.51); Mean Corp Hgb Conc 32.1 g/dL (32-36); Mean Corpuscular Hgb 31.6 pg (27.0-32.0); Mean Corpuscular Volume 98.6 fL (80-94); Mean Platelet Vol. 10.9 fl (6.2-12.0); Monocyte# 0.21 X10^3/uL; Monocyte% 2.4 % (0-10); NRBC Flagged by Analyzer 0 % (0-5); Neutrophil # 8.04 X10^3/uL (2.7-7.7); Neutrophil % 91.8 % (47-70); POSITIVE DIFFERENTIAL YES; Platelet Count 233 K/mm3 (150-450); RBC Distribution Width CV 13.9 % (11.6-14.6); RBC Distribution Width SD 50.7 fl (35.1-43.9); White Blood Count 8.8 K/mm3 (4.4-11.0)
[2024-01-09] MEDS: dilTIAZem CD 120 MG Capsule PO (08:18)
[2024-01-09] MEDS: Furosemide 40 MG Tablet PO (08:18)
[2024-01-09] MEDS: APIXABAN 5 MG TABLET PO (08:18)
[2024-01-09] MEDS: guaiFENesin 1,200 MG Tablet 1200 MG PO (08:18)
[2024-01-09] MEDS: Ensure Plus High Protein 120 ML LIQUID PO ×2 (08:18→13:09)
[2024-01-09] MEDS: Metoprolol(XL)Succ 50 MG Tablet PO (08:19)
[2024-01-09] MEDS: Azithromycin 250 MG Tablet 500 MG PO (08:19)
[2024-01-09 08:52] LABS: Anion Gap 6 (5-15); BUN 24 mg/dL (7-18); BUN/Creat Ratio 21.6 RATIO (10-20); Calcium,Total 9.3 mg/dL (8.5-10.1); Chloride 104 mmol/L (98-107); Creatinine, Serum 1.11 mg/dL (0.70-1.30); EST Glomerular Filtration Rate 69 mL/min (>60); Est Glom Filt Rate - Afr Amer 84 mL/min (>60); Estimated Creatinine Clearance 59.56 ml/min; Glucose 228 mg/dL (74-106); Potassium 4.3 mmol/L (3.5-5.1); Sodium Level 137 mmol/L (136-145)
[2024-01-09] MEDS: 0.9% Saline Lock 10 ML Syringe IV (13:09)
== END 2024-01-09 12:32 | disposition home or self-care (01) ==
LOC: ED 10:45 → PCU 15:15
PROVIDERS: Admitting Provider Internal Medicine; Emergency Provider Emergency Medicine; PCP Internal Medicine; Visit Provider Internal Medicine
DX: J44.1 Chronic obstructive pulmonary disease with (acute) exacerbation (principal); I48.91 Unspecified atrial fibrillation; R19.7 Diarrhea, unspecified; F10.10 Alcohol abuse, uncomplicated; Z86.718 Personal history of other venous thrombosis and embolism; B34.8 Other viral infections of unspecified site; R73.9 Hyperglycemia, unspecified; I10 Essential (primary) hypertension; R53.1 Weakness; E87.5 Hyperkalemia; Z79.01 Long term (current) use of anticoagulants; Z79.899 Other long term (current) drug therapy; R91.8 Other nonspecific abnormal finding of lung field; Z86.711 Personal history of pulmonary embolism; F17.210 Nicotine dependence, cigarettes, uncomplicated; R06.02 Shortness of breath; R00.0 Tachycardia, unspecified
CPT/HCPCS: 36415; 71275; 80048; 80053; 82803; 83735; 83880; 84484; 85025; 87631; 87633; 93005; 94640; 94668; 96374; 96376; 99221; 99285; Q9967; A4216; G0378

== ENCOUNTER 2024-05-11 09:40 | Inpatient (IN) | payer MEDICARE, BC, SELFPAY ==
[2024-05-11] VITALS (16 sets, daily range): BP systolic 122–162; BP diastolic 77–128; PULSE 71–115; RESP 16–28; TEMP 36.3–46.6; O2SAT 68–100; BMI 22.1; BMI 21.7
--- NOTE | 2024-05-11 09:53 | EKG12_ITS ---
Test Reason : SOB Blood Pressure : */* mmHG Vent. Rate : 107 BPM Atrial Rate : * BPM P-R Int : * ms QRS Dur : 78 ms QT Int : 338 ms P-R-T Axes : * 262 -3 degrees QTcB Int : 451 ms Atrial fibrillation with rapid ventricular response with premature ventricular or aberrantly conducted complexes Right superior axis deviation Septal infarct , age undetermined Abnormal ECG Confirmed by BAYRON SERRATO, JESS ([id number]), editor department IVORY WISDOM ([id number]) on 05/17/2024 11:14:25 AM Referred By: TB/BB Confirmed By: JESS VERMA MD
--- NOTE | 2024-05-11 09:53 | RAD_ITS ---
EXAM: XR Chest, 2 Views CLINICAL INDICATION: SOB TECHNIQUE: Frontal and lateral views of the chest. COMPARISON: No relevant prior studies available. FINDINGS: LUNGS AND PLEURAL SPACES: Unremarkable. No consolidation. No pneumothorax. HEART: Unremarkable. No cardiomegaly. MEDIASTINUM: Unremarkable. Normal mediastinal contour. BONES/JOINTS: Unremarkable. No acute fracture. RAD/Chest PA and Lateral IMPRESSION: No acute cardiopulmonary process. Reading Location: [facility]
[2024-05-11] MEDS: Ipratropium/Albuterol Sulfate 3 ML AMPUL.NEB INHALATION ×5 (09:57→19:36)
[2024-05-11] MEDS: 0.9% Normal Saline (1000mL) 1,000 ML 999 ML IV (10:00)
[2024-05-11] MEDS: MethylPREDNISolone 125 MG/2 ML Vial IV (10:01)
--- NOTE | 2024-05-11 10:04 | EDS_ITS ---
HPI History of Present Illness Chief Complaint: Shortness of Breath Narrative Narrative: Patient is a 73-year-old male past medical history of COPD, aortic root dilation, PE on Eliquis, atrial fibrillation who presented to the emergency department chief complaint of shortness of breath. According the patient when he woke up he was having a very rough morning having some difficulty breathing prompting him to come here for further evaluation management. Per staff when the patient arrived he was cyanotic and his oxygen was in the 60s on room air they placed him on nasal cannula and his oxygen increased to the mid 90s. Patient states that he has been feeling slightly under the weather for the past few days but denies any recent sick contacts. Patient states that he has been compliant with his medications and not missing doses [facility] Medical History COPD (chronic obstructive pulmonary disease) Aortic root dilatation Pulmonary embolism Alcohol abuse Mass of left lung Atrial fibrillation with RVR Inferior vena caval thrombosis Nodule of left lung Left adrenal mass Bilateral pulmonary embolism Tobacco dependence DVT (deep venous thrombosis) Arthritis Diarrhea SOB (shortness of breath) Home Medications ?Medication ?Instructions ?Recorded ?Last Taken ?Type diltiazem HCl 120 mg 120 mg PO DAILY BLOOD PRESSU RE 11/21/23 05/10/24 Rx capsule,extended release 24 hr #90 caps (Cardizem CD) metoprolol succinate 50 mg 50 mg PO DAILY BLOOD PRESSU RE #90 11/21/23 05/10/24 Rx tablet,extended release 24 hr tabs furosemide 40 mg tablet 40 mg PO DAILY EDEMA #30 ta bs 01/09/24 Unknown Rx ipratropium 0.5 mg-albuterol 3 mg 3 ml inhalation Q4H. RT #90 mL 01/09/24 Unknown Rx (2.5 mg base)/3 mL nebulization soln apixaban 5 mg tablet (Eliquis) 5 mg PO DAILY BLOOD THI NNER 02/20/24 05/10/24 History guaifenesin 1,200 mg tablet, 1,200 mg PO BID PRN conge stion 05/11/24 05/10/24 History extended release 12 hr (Mucinex) Allergy/AdvReac Type Severity Reaction Status Date / Time No Known Allergies Allergy Verified 02/20/24 14:08 Family History Other Arthritis Dementia Heart disease Hypertension Surgical History History of bilateral knee replacement History of hernia surgery Social History household members: spouse Smoking Status: Light Smoker (<10/day) Tobacco: How many years used: 15 alcohol intake: former details: 3 weeks ago substance use type: does not use caffeine: No what type of physical activity do you participate in: none ROS ROS ED ROS Narrative Constitutional: Complains of chills denies fevers, headaches, lightness, dizziness Eyes: Denies change in vision double vision blurry vision Cardiovascular: Denies chest pain or palpitations Respiratory: Complains of shortness of breath and cough Abdomen: Denies abdominal pain nausea vomit diarrhea : Denies any urinary symptoms Neurological: Denies numbness, weakness, tingling Musculoskeletal: Denies back pain Skin: Denies rashes or lesions EXAM Physical Exam Narrative Exam Narrative: General: Patient was lying in bed rest comfortably did not appear to be in acute distress Head: Atraumatic, normocephalic Eyes: PERRL bilaterally, EOMI bilaterally, no conjunctival injection noted Neck: Soft, supple, trach midline Cardiovascular: Patient tachycardic with an irregular irregular rhythm Respiratory: Patient has end expiratory wheezing noted bilaterally with diminished breath sounds at the right lung base Abdomen: Soft, nondistended, no tenderness palpation Extremities: Radial pulses +2/4 in the bilateral extremities, +5/5 strength noted in the bilateral upper and lower extremities Neurological: Patient following commands knew that he was at [facility] year is 2024 Skin: Warm, dry, intact no rashes lesions noted Const Vital Signs: 05/11/24 09:41 05/11/24 09:46 05/11/24 09:51 Temperature 97.4 F L 97.6 F L Temperature Source Temporal Temporal Pulse Rate 104 H 107 H Respiratory Rate 26 H 28 H Respiratory Effort Labored Accessory Muscle Use Respiratory Depth Shallow Respiratory Pattern Tachypnea Blood Pressure 162/128 H 145/108 H Blood Pressure Mean 139 120 Pulse Ox 68 96 Oxygen Delivery Method Room Air Nasal Cannula Nasal Cannula Oxygen Flow Rate (L/min) 05/11/24 09:53 05/11/24 09:57 05/11/24 10:11 Temperature Temperature Source Pulse Rate 107 H Respiratory Rate 16 Respiratory Effort Respiratory Depth Respiratory Pattern Blood Pressure 141/103 H Blood Pressure Mean 115 Pulse Ox Oxygen Delivery Method Oxygen Flow Rate (L/min) 3 05/11/24 10:30 05/11/24 10:46 05/11/24 11:00 Temperature 97.6 F L Temperature Source Oral Pulse Rate 113 H Respiratory Rate 20 H Respiratory Effort Respiratory Depth Respiratory Pattern Blood Pressure 140/100 H 146/98 H 146/98 H Blood Pressure Mean 113 114 114 Pulse Ox 96 96 Oxygen Delivery Method Nasal Cannula Nasal Cannula Oxygen Flow Rate (L/min) 3 3 05/11/24 11:30 Temperature Temperature Source Pulse Rate Respiratory Rate Respiratory Effort Respiratory Depth Respiratory Pattern Blood Pressure 139/77 H Blood Pressure Mean 97 Pulse Ox Oxygen Delivery Method Oxygen Flow Rate (L/min) MDM MDM MDM Narrative Medical decision making narrative: Patient is a 73-year-old male who presented to the emergency department chief complaint of cough and shortness of breath. On the differential diagnose includes but not limited to pneumonia, ACS, upper respiratory effect secondary viral etiology, pneumothorax , CHF. Once workup is obtained reviewed he will be reevaluated. Patient be given 30 cc/kg bolus of IV fluids as well as Solu- Medrol and 3 DuoNeb's. Patient's fluids were ordered at 9:55 AM. Patient's echocardiogram from 11/18/2022 was reviewed and showed ejection fraction of 45% at that point in time. Patient CBC was reviewed and showed no evidence leukocytosis white blood count normal 5.6, hemoglobin 16.3, plate count was noted be 201. Patient INR 1.2, PT elevated 15.3 is chronically anticoagulated on Eliquis, sodium normal 138, potassium of 4.7, creatinine normal at 1.17. Patient does have lactic acidosis 2.9 this likely secondary to his hypoxia, proBNP elevated 3947, chest x-ray was reviewed and showed no acute cardiopulmonary processes. Patient's EKG was reviewed and showed atrial fibrillation with a heart rate of 107 bpm. Patient has a history of atrial fibrillation anticoagulated on Eliquis. At 11:23 AM the patient was ordered IV Lasix as there is concern for hypervolemic state and potential flash pulmonary edema. The fluids were discontinued at this point time. Patient case will be discussed with hospitalist for admission. At this point time there is no evidence of infection at 11:31 AM therefore I do not believe antibiotics are indicated. Reperfusion assessment performed 11:32 AM and the patient remains hypertensive no vasopressor requirements Discussed case with hospitalist Dr. Rodarte who accept patient for admission. Patient notified all questions turns answered. Lab Data Labs: Laboratory Results - last 24 hr 05/11/24 10:00 WBC 5.6 RBC 5.11 Hgb 16.3 Hct 49.3 MCV 96.5 H MCH 31.9 MCHC 33.1 RDW Std Deviation 47.4 H RDW Coeff of Bartolome 13.2 Plt Count 201 MPV 10.6 Immature Gran % (Auto) 0.400 Neut % (Auto) 69.6 Lymph % (Auto) 18.3 L Livingston % (Auto) 10.4 H Eos % (Auto) 0.2 Baso % (Auto) 1.1 H Absolute Neuts (auto) 3.9 Absolute Lymphs (auto) 1.02 Nucleated RBC % 0 PT 15.3 H INR 1.2 APTT 27.5 Sodium 138 Potassium 4.7 Chloride 100 Carbon Dioxide 24.9 Anion Gap 13 BUN 17 Creatinine 1.17 Estim Creat Clear Calc 59.90 Est GFR (MDRD) Non-Af 66 BUN/Creatinine Ratio 14.7 Glucose 116 H Lactic Acid 2.9 H* Calcium 9.8 Total Bilirubin 1.22 AST 26 ALT 20 Alkaline Phosphatase 105 Troponin T High Sens 16 NT pro BNP II 3947 H Total Protein 6.9 Albumin 4.1 Globulin 2.9 Albumin/Globulin Ratio 1.4 Radiography Diagnostic Testing: Clinical Impression(s) from Imaging Studies Chest X-Ray 05/11/24 09:53 IMPRESSION: No acute cardiopulmonary process. Reading Location: [facility] Discharge Plan Triage Chief Complaint: Shortness of Breath ED Provider: Rl Lock Dx/Rx/DC Orders Clinical Impression: Acute hypoxic respiratory failure, COPD exacerbation, CHF (congestive heart failure), Acidosis, lactic Prescriptions: No Action Eliquis 5 mg tablet 5 mg PO DAILY ipratropium-albuterol 0.5 mg-3 mg(2.5 mg base)/3 mL Solution For Nebulization 3 ml inhalation Q4H.RT Qty: 90 0RF Patient Comments: PT SUPPOSED TO USE, BUT INS WONT COVER. furosemide 40 mg tablet 40 mg PO DAILY Qty: 30 1RF Patient Comments: PT HASNT BEEN TAKING DUE TO SIDE EFFECTS guaifenesin [Mucinex] 1,200 mg tablet extended release 12hr 1,200 mg PO BID PRN (Reason: congestion) diltiazem HCl [Cardizem CD] 120 mg capsule,extended release 24hr 120 mg PO DAILY Qty: 90 3RF metoprolol succinate 50 mg tablet extended release 24 hr 50 mg PO DAILY Qty: 90 3RF Primary Care Provider: Lilian Rossi Referrals: Lilian Rossi MD [Primary Care Provider] - Print Language: Mohawk Disposition Disposition: Acute Care Hospital [facility]
[2024-05-11 10:18] LABS: Absolute Lymphocyte Count 1.02 X10^3/uL (0.83-4.51); Absolute Neutrophil Count 3.9 X10^3/uL (2.0-7.7); Basophil# 0.06 X10^3/uL; Basophil% 1.1 % (0-1); Eosinophil# 0.01 X10^3/uL; Eosinophils% 0.2 % (0-5); Hematocrit 49.3 % (40-54); Hemoglobin 16.3 g/dL (13.0-16.5); Lymphocyte # 1.02 X10^3/ul (0.83-4.51); Lymphocyte % 18.3 % (19-41); Mean Corp Hgb Conc 33.1 g/dL (32-36); Mean Corpuscular Hgb 31.9 pg (27.0-32.0); Mean Corpuscular Volume 96.5 fL (80-94); Mean Platelet Vol. 10.6 fl (6.2-12.0); Monocyte# 0.58 X10^3/uL; Monocyte% 10.4 % (0-10); NRBC Flagged by Analyzer 0 % (0-5); Neutrophil # 3.87 X10^3/uL (2.7-7.7); Neutrophil % 69.6 % (47-70); Platelet Count 201 K/mm3 (150-450); RBC Distribution Width CV 13.2 % (11.6-14.6); RBC Distribution Width SD 47.4 fl (35.1-43.9); Red Blood Count 5.11 M/mm3 (4.6-6.2); White Blood Count 5.6 K/mm3 (4.4-11.0)
[2024-05-11 10:34] LABS: International Normalized Ratio 1.2; Prothrombin Time (Protime)PT. 15.3 SECONDS (11.7-14.9)
[2024-05-11 10:35] LABS: Partial Thromboplast Time 27.5 Seconds (24.1-36.2)
[2024-05-11 10:49] LABS: ALB/GLOB Ratio 1.4 RATIO (0.9-2.4); AST(SGOT) 26 U/L (<=37); Alanine Aminotransfer ALT/SGPT 20 U/L (<=46); Albumin, Serum 4.1 g/dL (3.4-4.8); Alkaline Phosphatase 105 U/L (40-129); Anion Gap 13 (5-15); BUN 17 mg/dL (4-19); BUN/Creat Ratio 14.7 RATIO (10-20); Calcium,Total 9.8 mg/dL (7.6-11.0); Carbon Dioxide 24.9 mmol/L (21.0-32.0); Chloride 100 mmol/L (98-108); Creatinine, Serum 1.17 mg/dL (0.70-1.20); EST Glomerular Filtration Rate 66 (>60); Globulin 2.9 g/dL (2.2-4.2); Glucose 116 mg/dL (70-99); Potassium 4.7 mmol/L (3.3-5.1); Protein, Total 6.9 g/dL (5.9-8.4); Sodium Level 138 mmol/L (133-145); Total Bilirubin 1.22 mg/dL (0.00-1.30)
[2024-05-11 10:52] LABS: Lactic Acid 2.9 mmol/L (0.0-2.0)
[2024-05-11 11:02] LABS: Troponin T High Sensitivity 16 ng/L (<=22)
[2024-05-11 11:22] LABS: Pro- Brain NATRIURETIC PEPTIDE 3947 pg/mL (<=900)
--- NOTE | 2024-05-11 11:27 | ED.RN ---
Fluids per order Dr Lock. Dr Lock aware lactic acid critical and sepsis alert. Pt CHF.
[2024-05-11] MEDS: Furosemide 40 MG/4 ML Vial IV (11:34)
--- NOTE | 2024-05-11 12:03 | CM.ED ---
Social work Patient confirmed patient's primary HCPOA is patient's , Julisa Phelan, and patient's secondary HCPOA is patient's daughter, Diamond Phelan. Christen Boswell, RISK SPECIALIST, ENGINEER BYPRODUCT
--- NOTE | 2024-05-11 12:05 | CASEMGMT ---
Care Management Face to Face with patient for initial transition planning/care coordination assessment in the ED. This law writer introduced self and role at [facility]. Patient alert and oriented. Patient willing to participate in assessment and is able to answer all questions appropriately. Care providers, pharmacy, and demographics verified. Admitting Diagnosis: Acute hypoxic respiratory failure, COPD exacerbation Other diagnosis history: COPD, aortic root dilation, PE on Eliquis, a fib PCP: Lilian Rossi Specialists: Angella Gilliland Preferred Pharmacy: [facility] or [facility] in [place] Insurance: Medicare A B (primary). [place] (secondary). Prescription Benefit: [employer] Living Will/HPOA: primary is , Julisa. secondary is daughter, Diamond. LNOK: and 3 daughters. Living Arrangements: lives with in 2 story home with 3-4 steps to enter. First floor living; independent at baseline with all ADLs/IADLs. Transportation: patient drives DME: pulse ox, shower grab bar, nebulizer (patient states not using the nebulizer due to not being able to get the medicine for it). HHC: none SNF/Rehab: none Community Resources: none Behavioral Health History: none Patient goals: Patient wishes to discharge home, denies need for home health care at this time. Patient denies any further needs or concerns at this time. Disposition Plan: admission to acute; RN CM/SW to follow for discharge planning needs that may arise. Christen Boswell, [employer], TRAFFIC SUPERVISOR
--- NOTE | 2024-05-11 12:19 | CT_ITS ---
PROCEDURE: CTA CHEST W/WO CONTRAST (CTCTACHWW), 05/11/2024 REASON FOR EXAM: SOB TECHNIQUE: CTA chest was performed with IV contrast. Multiplanar reformats and MIP reconstructions were generated. CONTRAST: 92 mL Isovue 370 COMPARISON: 01/08/2024 FINDINGS: Motion limits sensitivity for peripheral pulmonary embolus, with up to moderate artifact in some areas, particularly the lower lobes where pulmonary emboli are most likely. Heart/pericardium: Trace coronary atherosclerosis. Mild cardiomegaly with relative dilatation of the right greater than left atria. Trace aortic annular calcification. Aorta: Mild/moderate atherosclerosis. Mild fusiform ectasia of the ascending aorta to 4.1 x 4.0 cm. Pulmonary arteries: Enlargement of the central pulmonary arteries is similar to prior and may suggest pulmonary arterial hypertension. Similar tiny linear filling defect within the central aspect of the left lower lobe pulmonary artery consistent with chronic pulmonary embolism (series 2, image 163). Lymph nodes: Similar right hilar node, 15 mm short axis. Similar right paratracheal node, 12 mm short axis. Left hilar node inferiorly, 11 mm short axis, previously 10 mm. Posterior left pericardial node inferior to the left hilum, 14 mm short axis, previously 11 mm. Findings in the left axilla favored to reflect ectatic venous structures on correlation with previous imaging rather than lymphadenopathy. Lungs/pleura: Motion limited. Mild basilar atelectasis/scarring. Small/mild vaguely nodular opacities in the subpleural left lung apex posterolaterally since 07/17/2023. Airways: Expiratory appearance of the trachea.. Chest wall: Unremarkable. Upper abdomen: Similar reflux of contrast into the IVC and hepatic veins suggesting right heart dysfunction. Small hepatic cysts and additional tiny hypodensities too small to characterize, likely cysts/hemangiomas in the absence of known malignancy. Similar 2.5 cm left adrenal nodule previously low in density suggesting adenoma. Musculoskeletal: Mild thoracolumbar dextroscoliosis. Upper lumbar spondylosis is partially imaged. Degenerative changes of the lsnhn-mputjef-glhh-left shoulders.. CT/CTA Chest W/WO Contrast IMPRESSION: 1. Somewhat motion limited exam, limiting sensitivity for peripheral pulmonary embolism. No definite or central acute appearing pulmonary embolism is identified allowing for limitations. Unable to exclude p eripheral pulmonary embolism. 2. Findings consistent with chronic pulmonary embolism. Enlarged central pulmo nary arteries may suggest associated pulmonary arterial hypertension. 3. Similar to minimally increased mediastinal and right tmtsk-tnumlki-hony-left hilar lymphadenopathy, nonspecific and potentially reactive in the absence of known malignancy. Correlate with medica l history and follow-up as indicated. 4. Mild cardiomegaly and similar findings suggestive of right heart dysfunction . 5. Mild fusiform ectasia of the ascending aorta to 4.1 cm. 6. Additional description as above. Reading Location: [id number]
[2024-05-11 12:57] LABS: Mucous, Urine 0 SEEN /hpf (<or=2+); Squamous Epithelial Cells - UA 0 SEEN /hpf (0-5); White Blood Cells 0 SEEN /hpf (0-5)
[2024-05-11 13:00] LABS: Troponin T High Sens 2 HR 13 ng/L (<=22)
[2024-05-11 13:00] LABS: Color, Urine Yellow (Yellow); Glucose, Dipstick Normal (Normal); Ketone-Dipstick Negative (Negative); Leukocyte Esterase-Dipstick Negative /ul (Negative); Nitrite-Dipstick Negative (Negative); Occult Blood-Urine 25 /ul (Negative); Protein-Dipstick 15 mg/dl (Negative); Specific Gravity, Urine 1.015 (1.002-1.030); Urine Bilirubin Dipstick Negative (Negative); Urine Clarity Clear (Clear); Urine Urobilinogen Normal (Normal)
[2024-05-11 13:27] LABS: Bacteria RARE /hpf (None Seen); Red Blood Cells-Urine 0-5 SEEN /hpf (0-5)
[2024-05-11] MEDS: Methylprednisolone Sod Succ 40 MG/ML VIAL IV ×2 (16:06→22:21)
[2024-05-11 16:32] LABS: Troponin T High Sens 4 HR 13 ng/L (<=22)
--- NOTE | 2024-05-11 16:58 | ECHOD_ITS ---
Reason For Study : PULMONARY HYPERTENSION Procedure This was a 2D Doppler, Color Flow transthoracic echocardiogram. The study was technically difficult. Exam performed portable in patient room. Left Ventricle Normal LV size. The estimated ejection fraction is 70 %. No evidence for diastolic dysfunction. No regional wall motion abnormalities noted. Right Ventricle Normal RV size. Normal systolic function. Atria The left and right atria are normal. No doppler evidence for ASD. Mitral Valve There is no mitral valve stenosis. No mitral valve insufficiency. Tricuspid Valve There is no tricuspid stenosis. Trivial tricuspid valve insufficiency. Unable to estimate RV systolic pressure due to insufficient tricuspid regurgitant envelope. Aortic Valve Trisinus/trileaflet aortic valve. There is no aortic stenosis. No aortic valve insufficiency. Pulmonic Valve There is no pulmonic valvular stenosis. No pulmonic valve insufficiency. Great Vessels Mildly dilated aortic root. Pericardium/Pleural No pericardial effusion. MMode/2D Measurements & Calculations LVIDd: 4.4 cm IVSd: 1.2 cm Ao root diam: 3.9 cm LVIDs: 3.0 cm LVPWd: 1.2 cm RVDd: 3.7 cm FS: 31.7 % LAV(MOD-bp): 38.1 ml LVAd ap4: 23.8 cm2 SV(MOD-sp4): 42.3 ml LAV(MOD-bp) Indexed: 19.7 ml/m2 LVLd ap4: 7.3 cm SI(MOD-sp4): 21.9 ml/m2 LAV(MOD-sp2): 39.5 ml EDV(MOD-sp4): 66.1 ml LAV(MOD-sp4): 34.4 ml EDV(sp4-el): 66.2 ml LVAs ap4: 13.0 cm2 LVLs ap4: 6.3 cm ESV(MOD-sp4): 23.7 ml ESV(sp4-el): 22.9 ml EF(MOD-sp4): 64.1 % EF(sp4-el): 65.3 % SV(sp4-el): 43.2 ml LA A4 area: 15.1 cm2 LA dimension(2D): 3.5 cm RA A4 area: 17.3 cm2 TAPSE: 1.6 cm Doppler Measurements & Calculations MV E max sarai: 70.1 cm/sec Ao V2 max: 94.0 cm/sec LV V1 max: 63.2 cm/sec Ao max P.5 mmHg LV V1 max P.6 mmHg PA V2 max: 68.4 cm/sec TR max sarai: 353.1 cm/sec TR max P.9 mmHg ECHO/Echo Complete Interpretation Summary The estimated ejection fraction is 70 %. No evidence for diastolic dysfunction. Mildly dilated aortic root. Ordering Physician: Gerry Rodarte Referring Physician: SHAQ RODRÍGUEZ Performed By: Ford Streeter MD
--- NOTE | 2024-05-11 19:42 | PCM.HP.STD ---
[facility] - General General Date of Admission: 05/11/24 Date of Service: 05/11/24 Chief Complaint: Shortness of breath HPI Narrative REGGIE LIANG, is a 73 M who presents to the emergency room at [facility] with chief complaint of shortness of breath which is increased over the last 24 hours. He denies any fever or chills but he states that he did cough up some greenish clear sputum 1 time. Patient has a history of COPD and a past history of pulmonary emboli with pulmonary hypertension. He is noncompliant with follow-ups at his physician's office-he has not seen his PCP in 2 years, and he has not followed up with cardiology in 2 years. Patient states he has been taking Eliquis-however he decreased it to once a day. I called [facility] to check on his prescription history and they state that they have not filled Eliquis for the patient in 2 years. I also talked with his deputy felony clerk office and confirmed that he has not been seen in the office for 2 years however his medication has been refilled. Patient states that he has been taking his blood pressure medications, he was unable to get his aerosol DuoNeb solution refilled-I found out that a request for a refill was sent to a hospitalist physician instead of his primary care physician and he did not contact his primary care physician for a prescription. Patient states he decreased his dose of Eliquis on his own without instruction to do so. Lab obtained in the emergency room showed a normal white blood cell count, patient's lactic acid was elevated at 2.9, glucose was 116, and beta natruretic peptide was elevated at 3947. Chest x-ray showed no acute cardiopulmonary process, I requested a CTA be obtained due to the fact the patient is not taking his Eliquis as directed. The CTA showed no definite or central acute appearing pulmonary embolism, it was unable to exclude peripheral pulmonary embolism. There were findings consistent with chronic pulmonary embolism and enlarged central pulmonary arteries suggesting associated pulmonary artery hypertension. Patient will be admitted to [facility], he was placed on IV Lasix and IV corticosteroids and aerosol treatments. He will be necessary to obtain an echocardiogram to review the patient's pulmonary artery pressure. I told the patient he may be referred to a pulmonary artery specialist for further care of his pulmonary hypertension has worsened. [facility] Medical History COPD (chronic obstructive pulmonary disease) Aortic root dilatation Pulmonary embolism Alcohol abuse Mass of left lung Atrial fibrillation with RVR Inferior vena caval thrombosis Nodule of left lung Left adrenal mass Bilateral pulmonary embolism Tobacco dependence DVT (deep venous thrombosis) Arthritis Diarrhea SOB (shortness of breath) Home Medications ?Medication ?Instructions ?Recorded ?Last Taken ?Type diltiazem HCl 120 mg 120 mg PO DAILY BLOOD PRESSURE 11/21/23 05/10/24 Rx capsule,extended release 24 hr #90 caps (Cardizem CD) metoprolol succinate 50 mg 50 mg PO DAILY BLOOD PRESSURE #90 11/21/23 05/10/24 Rx tablet,extended release 24 hr tabs furosemide 40 mg tablet 40 mg PO DAILY EDEMA #30 tabs 01/09/24 Unknown Rx ipratropium 0.5 mg-albuterol 3 mg 3 ml inhalation Q4H.RT #90 mL 01/09/24 Unknown Rx (2.5 mg base)/3 mL nebulization soln apixaban 5 mg tablet (Eliquis) 5 mg PO DAILY BLOOD THINNER 02/20/24 05/10/24 History guaifenesin 1,200 mg tablet, 1,200 mg PO BID PRN congestion 05/11/24 05/10/24 History extended release 12 hr (Mucinex) Allergy/AdvReac Type Severity Reaction Status Date / Time No Known Allergies Allergy Verified 02/20/24 14:08 Family History Other Arthritis Dementia Heart disease Hypertension Surgical History History of bilateral knee replacement History of hernia surgery Social History household members: spouse Smoking Status: Light Smoker (<10/day) Tobacco: How many years used: 15 alcohol intake: former details: 3 weeks ago substance use type: does not use caffeine: No what type of physical activity do you participate in: none ROS Constitutional Constitutional: Denies anorexia, change in weight, chills, fatigue, fever(s), night sweats or weakness Eyes Eyes: Denies blurry vision, change in vision, discharge from eye(s) or eye pain Cardiovascular Cardiovascular: Reports dyspnea on exertion; Denies chest pain, claudication, edema or palpitations Respiratory/Chest Respiratory/Chest: Reports dyspnea; Denies cough, hemoptysis, shortness of breath at rest or shortness of breath with exertion Gastrointestinal Gastrointestinal: Denies abdominal pain, constipation, diarrhea, hematemesis, hematochezia, melena, nausea or vomiting Genitourinary Genitourinary: Denies dysuria, hematuria, urinary frequency, urinary hesitancy, urinary incontinence or urinary urgency Musculoskeletal Musculoskeletal: Denies back pain, joint pain, joint stiffness, joint swelling, myalgias or neck pain Neurologic Neurologic: Denies abnormal gait, abnormal speech, dizziness, focal weakness, headache(s), loss of vision, numbness, other visual disturbances, paresthesias, syncope or tingling Psychiatric Psychiatric: Denies anxiety, cognitive impairment, depression, irritability, mood swings or suicidal ideation Endocrine Endocrinology: Denies change in body appearance, cold intolerance, excessive sweating, heat intolerance, polydipsia or polyuria Hematologic/Lymphatic Hematologic/Lymphatic: Denies none, anemia, easy bleeding, easy bruising or lymphadenopathy Allergic/Immunologic Allergic/Immunologic: Denies rhinitis, urticaria, eczemia or asthma Vital Signs Vital Signs Vital Signs: 05/11/24 09:41 05/11/24 09:46 05/11/24 09:51 Temperature 97.4 F L 97.6 F L Temperature Source Temporal Temporal Pulse Rate 104 H 107 H Respiratory Rate 26 H 28 H Respiratory Effort Labored Accessory Muscle Use Respiratory Depth Shallow Respiratory Pattern Tachypnea Blood Pressure 162/128 H 145/108 H Blood Pressure Mean 139 120 Pulse Ox 68 96 Oxygen Delivery Method Room Air Nasal Cannula Nasal Cannula Oxygen Flow Rate (L/min) 05/11/24 09:53 05/11/24 09:57 05/11/24 10:11 Temperature Temperature Source Pulse Rate 107 H Respiratory Rate 16 Respiratory Effort Respiratory Depth Respiratory Pattern Blood Pressure 141/103 H Blood Pressure Mean 115 Pulse Ox Oxygen Delivery Method Oxygen Flow Rate (L/min) 3 05/11/24 10:30 05/11/24 10:46 05/11/24 11:00 Temperature 97.6 F L Temperature Source Oral Pulse Rate 113 H Respiratory Rate 20 H Respiratory Effort Respiratory Depth Respiratory Pattern Blood Pressure 140/100 H 146/98 H 146/98 H Blood Pressure Mean 113 114 114 Pulse Ox 96 96 Oxygen Delivery Method Nasal Cannula Nasal Cannula Oxygen Flow Rate (L/min) 3 3 05/11/24 11:30 05/11/24 12:00 05/11/24 12:00 Temperature 97.6 F L Temperature Source Oral Pulse Rate 115 H Respiratory Rate 20 H Respiratory Effort Respiratory Depth Respiratory Pattern Blood Pressure 139/77 H 136/93 H 136/93 H Blood Pressure Mean 97 107 107 Pulse Ox 96 Oxygen Delivery Method Nasal Cannula Oxygen Flow Rate (L/min) 3 05/11/24 12:30 05/11/24 12:43 05/11/24 13:27 Temperature 116 F H 97.9 F Temperature Source Oral Pulse Rate 115 H 71 Respiratory Rate 20 H 17 Respiratory Effort Respiratory Depth Respiratory Pattern Blood Pressure 136/93 H 136/93 H 122/92 H Blood Pressure Mean 107 107 102 Pulse Ox 96 100 Oxygen Delivery Method Nasal Cannula Oxygen Flow Rate (L/min) 3 05/11/24 13:27 05/11/24 15:15 05/11/24 15:15 Temperature Temperature Source Pulse Rate 84 Respiratory Rate 18 Respiratory Effort Non-Labored Short of Breath Respiratory Depth Respiratory Pattern Normal Blood Pressure Blood Pressure Mean Pulse Ox 95 Oxygen Delivery Method Nasal Cannula Nasal Cannula Oxygen Flow Rate (L/min) 3 3 Weight Weight: 72.5 kg Body Mass Index (BMI) 21.7 Physical Exam Const alert, oriented x3 and no apparent distress General Appearance: cooperative, well kempt and well developed Orientation / Consciousness: awake, oriented to person, oriented to place and oriented to time HEENT normocephalic, head/scalp atraumatic, hearing grossly normal bilaterally and moist oral mucous membranes Eyes PERRL, EOMs intact bilaterally and conjunctivae normal Neck supple, no JVD, thyroid normal and no carotid bruits General: trachea midline Resp normal respiratory effort, no retractions and no use of accessory muscles Resp Narrative: Patient has a persistent dry cough during my examination, he has also got expiratory wheezes scattered over both lungs Auscultation: wheezes; Negative for rales or rhonchi Cardio regular rate, regular rhythm, S1 normal heart sound, S2 normal heart sound, no murmurs, no rub and no gallops GI normal to inspection, nondistended, normoactive bowel sounds, soft to palpation, non-tender and non-distended Extremity no clubbing, cyanosis or edema Skin no rashes or lesions noted General Skin Exam: no breakdown Neuro oriented x3, CN's II-XII intact bilaterally, moves all extremities, no focal motor deficits and no sensory deficits noted Sensorium / Orientation: awake and alert Speech: speech normal Psych affect normal Results Lab / Micro Data 05/11/24 10:00 05/11/24 10:00 Labs: Laboratory Results - last 24 hr 05/11/24 10:00: WBC 5.6, RBC 5.11, Hgb 16.3, Hct 49.3, MCV 96.5 H, MCH 31.9, MCHC 33.1, RDW Std Deviation 47.4 H, RDW Coeff of Bartolome 13.2, Plt Count 201, MPV 10.6, Immature Gran % (Auto) 0.400, Neut % (Auto) 69.6, Lymph % (Auto) 18.3 L, [place] % (Auto) 10.4 H, Eos % (Auto) 0.2, Baso % (Auto) 1.1 H, Absolute Neuts (auto) 3.9, Absolute Lymphs (auto) 1.02, Nucleated RBC % 0, PT 15.3 H, INR 1.2, APTT 27.5, Sodium 138, Potassium 4.7, Chloride 100, Carbon Dioxide 24.9, Anion Gap 13, BUN 17, Creatinine 1.17, Estim Creat Clear Calc 59.90, Est GFR (MDRD) Non-Af 66, BUN/Creatinine Ratio 14.7, Glucose 116 H, Lactic Acid 2.9 H*, Calcium 9.8, Total Bilirubin 1.22, AST 26, ALT 20, Alkaline Phosphatase 105, Troponin T High Sens 16, NT pro BNP II 3947 H, Total Protein 6.9, Albumin 4.1, Globulin 2.9, Albumin/Globulin Ratio 1.4 05/11/24 12:25: Troponin T Hi Sens 2 Hr 13 05/11/24 12:50: Urine Color Yellow, Urine Clarity Clear, Urine pH 6.0, Ur Specific Elim 1.015, Urine Protein 15 H, Urine Glucose (UA) Normal, Urine Ketones Negative, Urine Occult Blood 25 H, Urine Nitrite Negative, Urine Bilirubin Negative, Urine Urobilinogen Normal, Ur Leukocyte Esterase Negative, Urine RBC 0-5 SEEN, Urine WBC 0 SEEN, Ur Squamous Epith Cells 0 SEEN, Urine Bacteria RARE, Urine Mucus 0 SEEN 03/11/25 16:03: Troponin T Hi Sens 4Hr 13 Micro: Microbiology 05/11/24 10:20 Mucosa - Nose SARS-CoV-2, Influenza & RSV (PCR) - Final Imaging Radiology Impression Chest X-Ray 05/11/24 09:53 IMPRESSION: No acute cardiopulmonary process. Reading Location: [facility] Chest CTA 05/11/24 12:19 IMPRESSION: 1. Somewhat motion limited exam, limiting sensitivity for peripheral pulmonary embolism. No definite or central acute appearing pulmonary embolism is identified allowing for limitations. Unable to exclude peripheral pulmonary embolism. 2. Findings consistent with chronic pulmonary embolism. Enlarged central pulmonary arteries may suggest associated pulmonary arterial hypertension. 3. Similar to minimally increased mediastinal and right [id number]-left hilar lymphadenopathy, nonspecific and potentially reactive in the absence of known malignancy. Correlate with medical history and follow-up as indicated. 4. Mild cardiomegaly and similar findings suggestive of right heart dysfunction. 5. Mild fusiform ectasia of the ascending aorta to 4.1 cm. 6. Additional description as above. Reading Location: [facility] [place] Assessment & Plan Assessment/Plan (1) COPD exacerbation: PLAN: Plan 1. Acute congestive heart failure with preserved ejection fraction-patient will be admitted to [facility] 2, he will receive IV Lasix and an echocardiogram will be performed. #2 acute exacerbation of COPD-patient will be placed on aerosol treatments and IV corticosteroids, I will also add Mucinex #3 severe pulmonary hypertension-patient will most probably need to follow-up with a pulmonary hypertension specialist #4 noncompliance with medical treatment-patient does not follow-up with his physicians as directed #5 chronic atrial fibrillation-patient is not compliant with Eliquis, I placed him on Eliquis 5 mg twice daily, he understands that he needs to take this as directed. Patient does not want to take Coumadin. Total clinical time spent by myself addressing patient's medical issues, reviewing all of his data, and collaborating with patient's care team: 75-minute Charges/Coding Visit Charges Inpatient E&M: 55196 Init Hosp L3
[2024-05-11] MEDS: APIXABAN 5 MG TABLET PO (22:20)
[2024-05-11] MEDS: guaiFENesin 1,200 MG Tablet 1200 MG PO (22:20)
[2024-05-11] MEDS: 0.9% Saline Lock 10 ML Syringe IV (22:20)
[2024-05-11] MEDS: Furosemide 20 MG/2 ML VIAL IV (22:21)
[2024-05-12] VITALS (10 sets, daily range): BP systolic 111–144; BP diastolic 74–90; PULSE 67–99; RESP 18–24; TEMP 36.3–36.8; O2SAT 90–96
[2024-05-12 05:21] LABS: Anion Gap 12 (5-15); BUN 28 mg/dL (4-19); BUN/Creat Ratio 24.8 RATIO (10-20); Calcium,Total 9.8 mg/dL (7.6-11.0); Carbon Dioxide 26.6 mmol/L (21.0-32.0); Chloride 97 mmol/L (98-108); Creatinine, Serum 1.13 mg/dL (0.70-1.20); EST Glomerular Filtration Rate 69 (>60); Estimated Creatinine Clearance 60.59 ml/min (50-250); Glucose 211 mg/dL (70-99); Potassium 4.8 mmol/L (3.3-5.1); Sodium Level 136 mmol/L (133-145)
[2024-05-12] MEDS: Methylprednisolone Sod Succ 40 MG/ML VIAL IV ×3 (06:42→21:02)
[2024-05-12] MEDS: Furosemide 20 MG/2 ML VIAL IV ×3 (06:42→18:26)
[2024-05-12] MEDS: 0.9% Saline Lock 10 ML Syringe IV ×3 (06:42→21:03)
[2024-05-12] MEDS: Ipratropium/Albuterol Sulfate 3 ML AMPUL.NEB INHALATION ×4 (07:08→20:25)
[2024-05-12] MEDS: dilTIAZem CD 120 MG Capsule PO (09:45)
[2024-05-12] MEDS: APIXABAN 5 MG TABLET PO ×2 (09:45→21:02)
[2024-05-12] MEDS: Metoprolol(XL)Succ 50 MG Tablet PO (09:45)
[2024-05-12] MEDS: guaiFENesin 1,200 MG Tablet 1200 MG PO ×2 (09:45→21:02)
--- NOTE | 2024-05-12 17:27 | PCM.PN.HOSP ---
Reason for Visit Reason for Visit: Diagnoses Chronic obstructive pulmonary disease with (acute) exacerbation (05/11/24) Subjective Subjective Patient was seen and examined today, he is currently on room air. Echocardiogram resulted today and showed a normal ejection fraction, they were not able to estimate the pulmonary artery pressure however. I have elected to decrease the patient's IV diuresis. Objective Data Objective Data Vital Signs: Vital Signs Temp Pulse Resp BP Pulse Ox O2 Del Method O2 Flow Rate 97.7 F L 95 18 111/74 95 Room Air 2 05/12/24 11:00 05/12/24 14:45 05/12/24 14:45 05/12/24 11:00 05/12/24 11:00 05/12/24 15:49 05/12/24 04:01 Oxygen Flow Rate (L/min) 2 Oxygen Delivery Method Room Air Weight: 72.5 kg Body Mass Index (BMI) 21.7 Intake & Output: Intake and Output for Last 24 Hours 05/10/24 05/11/24 05/12/24 23:59 23:59 23:59 Intake Total 1720 / 1720 Output Total 550 / 550 Balance 1170 / 1170 Lab / Micro Data 05/11/24 10:00 05/12/24 03:57 Labs: Laboratory Results - last 24 hr 05/12/24 03:57: Sodium 136, Potassium 4.8, Chloride 97 L, Carbon Dioxide 26.6, Anion Gap 12, BUN 28 H, Creatinine 1.13, Estim Creat Clear Calc 60.59, Est GFR (MDRD) Non-Af 69, BUN/Creatinine Ratio 24.8 H, Glucose 211 H, Calcium 9.8 Micro: Microbiology 05/11/24 12:50 Urine, Clean Catch Urine Culture - Preliminary Culture exhibits no growth. 05/11/24 10:20 Mucosa - Nose SARS-CoV-2, Influenza & RSV (PCR) - Final Radiography Diagnostic Testing: Radiology Impression Echocardiogram 05/11/24 16:58 Interpretation Summary The estimated ejection fraction is 70 %. No evidence for diastolic dysfunction. Mildly dilated aortic root. Ordering Physician: Gerry Rodarte Referring Physician: SHAQ RODRÍGUEZ Performed By: Ford Streeter MD Physical Exam Const alert, oriented x3, no apparent distress and average body habitus General Appearance: cooperative, well kempt and well developed Orientation / Consciousness: awake, oriented to person, oriented to place and oriented to time HEENT normocephalic, head/scalp atraumatic and moist oral mucous membranes Eyes PERRL, EOMs intact bilaterally and conjunctivae normal Neck supple, no JVD, thyroid normal and no carotid bruits General: trachea midline Resp normal respiratory effort, no retractions and no use of accessory muscles Resp Narrative: Occasional expiratory wheezes are noted scattered over both lungs Auscultation: Negative for rales, rhonchi or wheezes Cardio S1 normal heart sound, S2 normal heart sound, no murmurs, no rub and no gallops Cardio Narrative: Heart rate and rhythm is irregular GI normal to inspection, nondistended, normoactive bowel sounds, soft to palpation, non-tender and non-distended Extremity no clubbing, cyanosis or edema Skin no rashes or lesions noted General Skin Exam: no breakdown Neuro oriented x3, CN's II-XII intact bilaterally, moves all extremities, no focal motor deficits and no sensory deficits noted Sensorium / Orientation: awake and alert Speech: speech normal Psych affect normal Assessment & Plan Assessment/Plan (1) CHF (congestive heart failure): (2) COPD exacerbation: PLAN: Plan 1. Acute congestive heart failure with preserved ejection fraction-patient's IV Lasix was reduced to 20 mg twice daily #2 acute exacerbation of COPD-patient will be placed on aerosol treatments and IV corticosteroids, patient remains on Mucinex #3 severe pulmonary hypertension-patient will need to follow-up with a pulmonary hypertension specialist #4 noncompliance with medical treatment-patient does not follow-up with his physicians as directed #5 chronic atrial fibrillation-patient is not compliant with Eliquis, I placed him on Eliquis 5 mg twice daily, he understands that he needs to take this as directed. Patient does not want to take Coumadin. Total clinical time spent by myself addressing patient's medical issues, reviewing all of his data, and collaborating with patient's care team: 35-minute Charges/Coding Visit Charges Inpatient E&M: 16776 Subs Hosp L2
[2024-05-13] VITALS (7 sets, daily range): BP systolic 119–127; BP diastolic 87–98; PULSE 57–91; RESP 18–24; TEMP 36.4–36.5; O2SAT 92–96
[2024-05-13] MEDS: Methylprednisolone Sod Succ 40 MG/ML VIAL IV (06:28)
[2024-05-13] MEDS: 0.9% Saline Lock 10 ML Syringe IV (06:28)
[2024-05-13] MEDS: Ipratropium/Albuterol Sulfate 3 ML AMPUL.NEB INHALATION ×2 (06:43→10:55)
--- NOTE | 2024-05-13 10:15 | DCINST_ITS ---
Discharge Instructions Diet Discharge Diet: - (Regular diet with no concentrated sweets) DC O2, CPAP, BIPAP needs Home O2 Discharge instructions: No Dressing / Incision Discharge Activity: Return to Normal Activity Weight Bearing Status: Full weight bearing Follow Up Care Test Results: Test results from this visit will be discussed in further detail at your follow- up appointment, if applicable. Discharge Plan Admission Admit Date/Time: 05/11/24 11:45 Primary Reason for Your Visit: heart failure, hypoxia Attending Provider: Gerry Rodarte Primary Care Provider: Lilian Rossi Discharge Orders/Prescriptions Prescriptions: New ipratropium-albuterol 0.5 mg-3 mg(2.5 mg base)/3 mL Solution For Nebulization 3 ml inhalation 4XD Qty: 1120 0RF Eliquis 5 mg Tablet 5 mg PO BID Qty: 60 0RF furosemide [Lasix] 40 mg tablet 40 mg PO BID Qty: 60 0RF Rx Instructions: 1 tablet in the morning, 1 tablet mid afternoon daily potassium chloride 10 mEq tablet extended release 20 meq PO DAILY Qty: 60 0RF prednisone 20 mg tablet 40 mg PO DAILY Qty: 14 0RF Rx Instructions: 1 tablet twice a day for 3 days, then 1 tablet daily until finished albuterol sulfate 90 mcg/actuation HFA aerosol inhaler 2 puff inhalation Q6H PRN (Reason: shortness of breath or wheezing) Qty: 6.7 0RF Continued guaifenesin [Mucinex] 1,200 mg tablet extended release 12hr 1,200 mg PO BID PRN (Reason: congestion) diltiazem HCl [Cardizem CD] 120 mg capsule,extended release 24hr 120 mg PO DAILY Qty: 90 3RF metoprolol succinate 50 mg tablet extended release 24 hr 50 mg PO DAILY Qty: 90 3RF Discontinued Eliquis 5 mg tablet 5 mg PO DAILY furosemide 40 mg tablet 40 mg PO DAILY Qty: 30 1RF Patient Comments: PT HASNT BEEN TAKING DUE TO SIDE EFFECTS No Action ipratropium-albuterol 0.5 mg-3 mg(2.5 mg base)/3 mL Solution For Nebulization 3 ml inhalation Q4H.RT Qty: 90 0RF Patient Comments: PT SUPPOSED TO USE, BUT INS WONT COVER. Referrals / Follow Up: Lilian Rossi MD [Primary Care Provider] - See Referral Note (Within 3 weeks, he will need to check your blood sugar, it was elevated while you were in the hospital) Angella Mohr EMBALMER ASSISTANT, EMBALMER ASSISTANT-C [Med Staff - Adv Practice Prof] - See Referral Note (As scheduled) Earl Duran EMBALMER ASSISTANT, EMBALMER ASSISTANT-C [Med Staff - Adv Practice Prof] - See Referral Note (Within 1 month) Disposition Disposition (needs filled in before D/C Order can be placed): Home, Self Care
[2024-05-13] MEDS: Furosemide 20 MG/2 ML VIAL IV (10:19)
[2024-05-13] MEDS: Metoprolol(XL)Succ 50 MG Tablet PO (10:19)
[2024-05-13] MEDS: dilTIAZem CD 120 MG Capsule PO (10:19)
[2024-05-13] MEDS: APIXABAN 5 MG TABLET PO (10:20)
[2024-05-13] MEDS: guaiFENesin 1,200 MG Tablet 1200 MG PO (10:20)
--- NOTE | 2024-05-13 10:27 | PCM.DC.SUM ---
Providers Date of Admission: 05/11/24 Date of Discharge: 05/13/24 Primary Care Physician: Dr. Lilain Rossi MD Reason For Visit: HYPOXIA, EXACERBATION OF COPD, CHF Diagnosis Discharge Diagnosis (1) CHF (congestive heart failure): Status: Acute Code(s): I50.9 - Heart failure, unspecified (2) COPD exacerbation: Status: Chronic Code(s): J44.1 - Chronic obstructive pulmonary disease with (acute) exacerbation Plan 1. Acute congestive heart failure with preserved ejection fraction-patient's IV Lasix was reduced to 20 mg twice daily #2 acute exacerbation of COPD-patient will be placed on aerosol treatments and IV corticosteroids, patient remains on Mucinex #3 severe pulmonary hypertension-patient will need to follow-up with a pulmonary hypertension specialist #4 noncompliance with medical treatment-patient does not follow-up with his physicians as directed #5 chronic atrial fibrillation-patient is not compliant with Eliquis, I placed him on Eliquis 5 mg twice daily, he understands that he needs to take this as directed. Patient does not want to take Coumadin. Total clinical time spent by myself addressing patient's medical issues, reviewing all of his data, and collaborating with patient's care team: 35-minute Medications at Discharge Home Medications diltiazem HCl 120 mg capsule,extended release 24 hr (Cardizem CD) 120 mg PO DAILY BLOOD PRESSURE #90 caps 11/21/23 metoprolol succinate 50 mg tablet,extended release 24 hr 50 mg PO DAILY BLOOD PRESSURE #90 tabs 11/21/23 guaifenesin 1,200 mg tablet, extended release 12 hr (Mucinex) 1,200 mg PO BID PRN congestion 05/11/24 albuterol sulfate 90 mcg/actuation aerosol inhaler 2 puff inhalation Q6H PRN shortness of breath or wheezing #6.7 grams 05/13/24 apixaban 5 mg tablet (Eliquis) 5 mg PO BID #60 tabs 05/13/24 furosemide 40 mg tablet (Lasix) 40 mg PO BID #60 tabs 05/13/24 ipratropium 0.5 mg-albuterol 3 mg (2.5 mg base)/3 mL nebulization soln 3 ml inhalation 4XD #1,120 mL 05/13/24 potassium chloride 10 mEq tablet,extended release 20 meq (2 x 10 mEq) PO DAILY #60 tabs 05/13/24 prednisone 20 mg tablet 40 mg (2 x 20 mg) PO DAILY #14 tabs 05/13/24 Hospital Course Operations None Procedures 2-D Echocardiogram Summary of Care Provided Minutes Spent on Discharge: 32 Hospital Course: This 73-year-old white male was seen in the emergency room at [facility] with a chief complaint of shortness of breath. Patient denied any fevers or chills. Patient stated that occasionally he coughed up some greenish clear sputum. Patient has a past history of COPD, he has not been compliant with following up with his PCP, branch examiner, or agricultural technical officer. Patient was not taking his medications as directed. Workup in the emergency room showed a normal white blood cell count, lactic acid was elevated at 2.9, beta natruretic peptide was elevated at 3947. Chest x-ray showed no acute cardiopulmonary process, CTA of the chest was obtained which showed evidence of chronic pulmonary hypertension. No overt clots were seen. Patient was admitted to [place] [address], he was placed on IV Lasix, given IV corticosteroids, and given aerosol treatments. Patient underwent an echocardiogram which showed a normal EF, pulmonary artery pressure was not able to be estimated. Patient improved during his hospitalization was weaned off oxygen. I had multiple discussions with the patient concerning his noncompliance with his physicians. Patient had a 6-minute walking oxygen test on discharge, his room air pulse ox at rest was 95%, his pulse ox after walking 6 minutes on room air was 92%. I did contact his pulmonary physicians office and talked with the nurse practitioner there (Dr. Justice's office). On 05/13/2024, patient was seen and examined: On examination he appeared in good health and spirits. Vital signs as documented. Skin warm and dry and without overt rashes. Neck without JVD, neck was supple, trachea midline, thyroid was normal. Lungs clear bilaterally, normal air movement was noted. Heart exam notable for regular rhythm, normal sounds and absence of murmurs, rubs or gallops. Abdomen unremarkable and without evidence of organomegaly, masses, or abdominal aortic enlargement. Bowel sounds are present, abdomen is not distended. Extremities nonedematous, no cyanosis was noted, no clubbing was noted. Neuro: Cranial nerves II through XII are grossly intact, no focal motor deficits were noted, sensation to light touch and pinprick intact, motor exam 5/5 throughout. Psych: Patient is alert and oriented x3, he does not appear anxious or depressed, he does not appear agitated. Patient was discharged home in stable condition on 05/13/2024. Weight / BMI Weight Weight: 72.5 kg Body Mass Index (BMI) 21.7 ABG / Lab / Microbiology Data 05/11/24 10:00 05/12/24 03:57 Microbiology: Microbiology 05/11/24 12:50 Urine, Clean Catch Urine Culture - Final Culture exhibits no growth. 05/11/24 11:20 Blood Culture (Wb) - Anticubital Right Blood Culture - Preliminary No growth in 48 hours. 05/11/24 10:00 Blood Culture (Wb) - Anticubital Right Blood Culture - Preliminary No growth in 48 hours. 05/11/24 10:20 Mucosa - Nose SARS-CoV-2, Influenza & RSV (PCR) - Final Radiography Diagnostic Testing: Radiology Impression Echocardiogram 05/11/24 16:58 Interpretation Summary The estimated ejection fraction is 70 %. No evidence for diastolic dysfunction. Mildly dilated aortic root. Ordering Physician: Gerry Rodarte Referring Physician: LILIAN ROSSI Performed By: Ford Streeter MD D/C Instructions Discharge Diet: - (Regular diet with no concentrated sweets) Weight Bearing Status: Full weight bearing DC O2, CPAP, BIPAP Needs Home O2 Discharge instructions: No Meaningful Use Info Meaningful Use Meaningful Use Diagnoses (Choose all that apply): CHF CHF JENNIFER/ARB ordered at discharge?: No Reason JENNIFER/ARB not ordered?: Not indicated Documented LVEF (%): 70 Ischemic Stroke Statin Dosing Therapy Reference: STATIN DOSE THERAPY REFERENCE: * Patients > 75 years receive moderate or high dose statin therapy. * Patients 75 years or YOUNGER should receive HIGH intensity statin dose unless contraindicated. You will be required to document reason for non-treatment if statin daily dose does not meet guidelines. HIGH DOSE STATIN THERAPY DAILY Atorvastatin > than or = to 40 mg Rosuvastatin > than or = to 20 mg Amlodipine + Atorvastatin > than or = to 2.5/40 mg Ezetimibe + Simvastatin 10/80 mg Simvastatin 80mg Discharge Plan Admission Admit Date/Time: 05/11/24 11:45 Primary Reason for Your Visit: heart failure, hypoxia Attending Provider: Gerry Rodarte Primary Care Provider: Lilian Rossi Discharge Orders/Prescriptions Prescriptions: New ipratropium-albuterol 0.5 mg-3 mg(2.5 mg base)/3 mL Solution For Nebulization 3 ml inhalation 4XD Qty: 1120 0RF Eliquis 5 mg Tablet 5 mg PO BID Qty: 60 0RF furosemide [Lasix] 40 mg tablet 40 mg PO BID Qty: 60 0RF Rx Instructions: 1 tablet in the morning, 1 tablet mid afternoon daily potassium chloride 10 mEq tablet extended release 20 meq PO DAILY Qty: 60 0RF prednisone 20 mg tablet 40 mg PO DAILY Qty: 14 0RF Rx Instructions: 1 tablet twice a day for 3 days, then 1 tablet daily until finished albuterol sulfate 90 mcg/actuation HFA aerosol inhaler 2 puff inhalation Q6H PRN (Reason: shortness of breath or wheezing) Qty: 6.7 0RF Continued guaifenesin [Mucinex] 1,200 mg tablet extended release 12hr 1,200 mg PO BID PRN (Reason: congestion) diltiazem HCl [Cardizem CD] 120 mg capsule,extended release 24hr 120 mg PO DAILY Qty: 90 3RF metoprolol succinate 50 mg tablet extended release 24 hr 50 mg PO DAILY Qty: 90 3RF Discontinued Eliquis 5 mg tablet 5 mg PO DAILY furosemide 40 mg tablet 40 mg PO DAILY Qty: 30 1RF Patient Comments: PT HASNT BEEN TAKING DUE TO SIDE EFFECTS Referrals / Follow Up: Lilian Rossi MD [Primary Care Provider] - See Referral Note (Within 3 weeks, he will need to check your blood sugar, it was elevated while you were in the hospital) Angella Mohr NP, HEALTHCARE RISK CONTROL CONSULTANT-C [Med Staff - Adv Practice Prof] - See Referral Note (As scheduled) Earl Duran NP, HEALTHCARE RISK CONTROL CONSULTANT-C [Med Staff - Adv Practice Prof] - See Referral Note (Within 1 month) Disposition Disposition (needs filled in before D/C Order can be placed): Home, Self Care Charges/Coding Visit Charges Inpatient E&M: 41114 Disch Hosp >30min
--- NOTE | 2024-05-13 12:45 | CASEMGMT ---
Patient has order for discharge. Patient is discharging on EUSEBIA [place] CM called [facility], copay $524, patient has deductible to meet. EUSEBIA CM in to discuss needs at discharge. Patient is aware of deductible and has already paid for medications. Patient denies needs or help at discharge. Patient had no further questions or concerns.
--- NOTE | 2024-05-13 13:40 | PHA.DC.MC.R ---
Pharmacy [facility] has performed discharge medication reconciliation and counseling for this patient. 1. ALBUTEROL 90MCG/ACTUATION 2 PUFFS Q6H PRN SOB/WHEEZING 2. POTASSIUM CHLORIDE 20MEQ PO DAILY 3. PREDNISONE 20MG PO BID X3 DAYS, THEN 20MG DAILY UNTIL GONE 4. APIXABAN CHANGED TO BID 5. FUROSEMIDE CHANGED TO BID The patient's discharge medication list was reviewed for discrepancies and discrepancies were resolved. The patient was counseled on the following discharge medications and changes in medications for homegoing were reviewed. The Reason for Use, instructions for use, and potential side effects were reviewed for all new medications. The patient's questions regarding all of their medications were answered. The patient was able to verbally demonstrate an understanding of their discharge medications. Medications at Discharge Home Medications diltiazem HCl 120 mg capsule,extended release 24 hr (Cardizem CD) 120 mg PO DAILY BLOOD PRESSURE #90 caps 11/21/23 metoprolol succinate 50 mg tablet,extended release 24 hr 50 mg PO DAILY BLOOD PRESSURE #90 tabs 11/21/23 guaifenesin 1,200 mg tablet, extended release 12 hr (Mucinex) 1,200 mg PO BID PRN congestion 05/11/24 albuterol sulfate 90 mcg/actuation aerosol inhaler 2 puff inhalation Q6H PRN shortness of breath or wheezing #6.7 grams 05/13/24 apixaban 5 mg tablet (Eliquis) 5 mg PO BID #60 tabs 05/13/24 furosemide 40 mg tablet (Lasix) 40 mg PO BID #60 tabs 05/13/24 ipratropium 0.5 mg-albuterol 3 mg (2.5 mg base)/3 mL nebulization soln 3 ml inhalation 4XD #1,120 mL 05/13/24 potassium chloride 10 mEq tablet,extended release 20 meq (2 x 10 mEq) PO DAILY #60 tabs 05/13/24 prednisone 20 mg tablet 40 mg (2 x 20 mg) PO DAILY #14 tabs 05/13/24
--- NOTE | 2024-05-13 15:19 | CHAPLAIN ---
Type of Pastoral Visit ___ Initial Visit ___ Follow-up Visit ___ On-call Visit ___ General Patient Visit ___ Spiritual Assessment ___ Family Conference ___ Bereavement ___ Rapid Response ___ Code Blue ___ Other (describe below) Pastoral Care Referral From ___ Patient ___ Family ___ Nurse ___ Physician ___ Desktop Analyst ___ Beverage Server ___ Other (describe below) Sacrament/Intervention ___ Active listening ___ Anointing ___ Mormon ___ Bereavement ___ Communion ___ Haydee exploration ___ ___ Life review ___ Prayer ___ Reconciliation ___ Sacrament of Sick ___ Supportive presence ___ Wedding ___ Other (describe below) Pastoral Comments patient was dressed and ready for discharge; pt expressed appreciation for the stop and offer of support; pt believes he received what he needed but states that as he has received spiritual care before that he is grateful for the concern
== END 2024-05-13 13:15 | disposition home or self-care (01) | DRG 190 ==
LOC: ED 11:47 → MS2 12:18
PROVIDERS: Admitting Provider Internal Medicine; Emergency Provider Emergency Medicine; PCP Internal Medicine; Visit Provider Internal Medicine
DX: J44.1 Chronic obstructive pulmonary disease with (acute) exacerbation (principal); I50.31 Acute diastolic (congestive) heart failure; I48.20 Chronic atrial fibrillation, unspecified; I27.20 Pulmonary hypertension, unspecified; F17.200 Nicotine dependence, unspecified, uncomplicated; Z96.653 Presence of artificial knee joint, bilateral; Z91.199 Patient's noncompliance with other medical treatment and regimen due to unspecified reason
CPT/HCPCS: 36415; 71046; 71275; 80048; 80053; 81001; 83605; 83880; 84484; 85025; 85610; 85730; 87040; 87086; 87631; 93005; 93306; 94640; 99252; 99284; 99406; Q9967; A4216; G0463; J1940

== ENCOUNTER 2024-05-14 09:02 | Observation (INO) | payer MEDICARE, BC, SELFPAY ==
[2024-05-14] VITALS (15 sets, daily range): BP systolic 83–150; BP diastolic 7–100; PULSE 64–116; RESP 12–26; TEMP 36.2–38; O2SAT 90–98; BMI 21.8; BMI 21.5
--- NOTE | 2024-05-14 09:17 | ED.VIS.DYS ---
HPI History of Present Illness Chief Complaint: Shortness of Breath Narrative Narrative: 73-year-old male past medical history of COPD, possible CHF, presents with increased difficulty breathing since yesterday. Of note, he was admitted to the hospital on Friday, 3 days ago, had a 2-day stay, and was released yesterday afternoon. He states he went home and was doing well, then started having difficulty breathing throughout the night. No fevers or chills. He was a former smoker and quit a few weeks ago. He does not wear oxygen at home. He denies starting smoking again. EMS was called because of his increasing shortness of breath. No chest pain or other symptoms. 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 Bilateral pulmonary embolism Tobacco dependence DVT (deep venous thrombosis) Arthritis Diarrhea SOB (shortness of breath) Home Medications ?Medication ?Instructions ?Recorded ?Last Taken ?Type diltiazem HCl 120 mg 120 mg PO DAILY BLOOD PRESSURE 11/21/23 05/10/24 Rx capsule,extended release 24 hr #90 caps (Cardizem CD) metoprolol succinate 50 mg 50 mg PO DAILY BLOOD PRESSURE #90 11/21/23 05/10/24 Rx tablet,extended release 24 hr tabs guaifenesin 1,200 mg tablet, 1,200 mg PO BID PRN congestion 05/11/24 05/10/24 History extended release 12 hr (Mucinex) albuterol sulfate 90 mcg/actuation 2 puff inhalation Q6H PRN 05/13/24 Unknown Rx aerosol inhaler shortness of breath or wheezing #6.7 grams apixaban 5 mg tablet (Eliquis) 5 mg PO BID #60 tabs 05/13/24 Unknown Rx furosemide 40 mg tablet (Lasix) 40 mg PO BID #60 tabs 05/13/24 Unknown Rx ipratropium 0.5 mg-albuterol 3 mg 3 ml inhalation 4XD #1,120 mL 05/13/24 Unknown Rx (2.5 mg base)/3 mL nebulization soln potassium chloride 10 mEq 20 meq (2 x 10 mEq) PO DAILY #60 05/13/24 Unknown Rx tablet,extended release tabs prednisone 20 mg tablet 40 mg (2 x 20 mg) PO DAILY #14 tabs 05/13/24 Unknown Rx Allergy/AdvReac Type Severity Reaction Status Date / Time No Known Allergies Allergy Verified 05/14/24 09:03 Family History Other Arthritis Dementia Heart disease Hypertension Surgical History History of bilateral knee replacement History of hernia surgery Social History household members: spouse Smoking Status: Light Smoker (<10/day) Tobacco: How many years used: 15 alcohol intake: former details: 3 weeks ago substance use type: does not use caffeine: No what type of physical activity do you participate in: none ROS ROS ED ROS Narrative Review of systems positive for increasing shortness of breath. No chest pain. No nausea or vomiting, no diaphoresis. No leg swelling. EXAM Physical Exam Narrative Exam Narrative: Temperature 100.4 ?F. Vital signs noted. Cardiovascular examination reveals mild tachycardia. Positive tachypnea. Decreased breath sounds right base greater than left. Abdomen soft and nontender. No guarding or rebound. No noted pedal edema. Neurological examination nonfocal and nonlateralizing. Const Vital Signs: 05/14/24 09:03 05/14/24 09:07 05/14/24 09:10 Temperature 100.4 F H 100.4 F H Temperature Source Oral Oral Pulse Rate 116 H 112 H Respiratory Rate 22 H 24 H Respiratory Effort Short of Breath Respiratory Depth Normal Respiratory Pattern Tachypnea Blood Pressure 150/100 H 123/91 H Blood Pressure Mean 116 101 Pulse Ox 94 92 Oxygen Delivery Method Nasal Cannula Nasal Cannula Nasal Cannula Oxygen Flow Rate (L/min) 5 6 6 05/14/24 09:23 05/14/24 09:35 05/14/24 09:35 Temperature Temperature Source Pulse Rate 88 Respiratory Rate 26 H Respiratory Effort Respiratory Depth Respiratory Pattern Tachypnea Blood Pressure Blood Pressure Mean Pulse Ox 96 Oxygen Delivery Method Room Air Nasal Cannula Oxygen Flow Rate (L/min) 6 05/14/24 09:57 05/14/24 10:07 05/14/24 11:00 Temperature 100.2 F H 99.9 F H Temperature Source Oral Oral Pulse Rate 64 97 Respiratory Rate 16 22 H Respiratory Effort Respiratory Depth Respiratory Pattern Blood Pressure 111/78 99/7 L Blood Pressure Mean 89 37 Pulse Ox 94 98 95 Oxygen Delivery Method Room Air Room Air Nasal Cannula Oxygen Flow Rate (L/min) 2 05/14/24 13:00 Temperature Temperature Source Pulse Rate 76 Respiratory Rate 25 H Respiratory Effort Respiratory Depth Respiratory Pattern Blood Pressure 83/69 L Blood Pressure Mean 73 Pulse Ox 90 Oxygen Delivery Method Room Air Oxygen Flow Rate (L/min) MDM MDM MDM Narrative Medical decision making narrative: I reviewed the patient's prior records. He did have CTA performed and was supposed to be on Eliquis for atrial fibrillation. CTA findings could not rule out peripheral pulmonary embolism secondary to motion artifact, but there was concern for chronic pulmonary embolism because of enlarged pulmonary arteries, which could be more pulmonary hypertension. Eliquis was restarted by the hospitalist. He was diagnosed with CHF with preserved ejection fraction. I reviewed his echocardiogram and he had an EF of 70%. Given his elevated temperature, he may have more atelectasis versus developing pneumonia. Comprehensive workup was pursued. He was given a DuoNeb aerosolized treatment and 60 mg of Solu-Medrol intravenously. Chest x-ray and laboratory work including blood cultures will be obtained. Tylenol administered for fever. He was hypoxic on room air. I do feel that he will most likely require readmission if he remains hypoxic and his oxygen requirement is still present after workup. Comprehensive workup was pursued. EKG was obtained and interpreted by myself independently that appears to be normal sinus at [address] changes. No STEMI. There is baseline artifact noted. I reviewed his laboratory work and he has normal white count of 9.7 with hemoglobin 16.0, hematocrit 48.4, platelet count normal at 252. Electrolyte panel shows normal sodium of 141 with potassium 4.5 and carbon dioxide 29.3. Glucose is elevated 121 with a normal anion gap of 12. BUN slightly elevated at 29 with a normal creatinine of 1.03. While lactic acid is elevated 2.7 this is improved over previous when compared to prior labs. Additionally, proBNP is elevated at 2448, but he is on Lasix and it was higher when compared to previous laboratories as well in the 2999's. On my independent interpretation of his chest x-ray in 1 view, there is atelectasis. I reviewed the radiology report which confirms my independent interpretation but comments on either atelectasis or pneumonia. Given that he has no white count or fever here, and on my independent comparison to his previous chest x-ray from a few days ago, there is no worsening consolidation. I do not feel antibiotics are indicated. Patient did have borderline 90% on room air. He had been taken off his 2 L nasal cannula of oxygen. While he had been on it, ABG was obtained and he has a pH of 7.4 with CO2 of 46 which shows mild retention and pO2 of 83.6. Given that his medications have been optimized at home, he states he has nebulizers at home, he was put on prednisone, he is taking his Lasix and his Eliquis. I discussed patient with Dr. Lucas who discussed the patient with Dr. Rui Justice, and was not felt that he necessarily required admission/readmission for his COPD and breathing problems. I also contacted social work/case management to see if he would qualify for oxygen at home, but he had not qualified on his most recent admission and discharge yesterday. His ambulatory pulse ox was 90 to 92% on room air. His daughter was concerned about his tachypnea. Attempt was going to be made to reambulate him, and to give him Lasix as he takes this at home. However, patient became hypotensive and is unable to stand without being dizzy. I had given him a 500 mL bolus of normal saline, but with his history of CHF and elevated BNP, although he has an ejection fraction of 70%, I do not want to fluid overload him and cause more hypoxia or pulmonary edema. I read discussed patient with Dr. Lucas who will observe the patient on the PCU. Patient is in stable condition. History & Record Review Discussion w/independent historian: Patient and Family Additional record(s) reviewed:: Prior labs Lab Data Attestation: I reviewed the patient's lab results. Labs: Laboratory Results - last 24 hr 05/14/24 09:08 WBC 9.7 RBC 5.03 Hgb 16.0 Hct 48.4 MCV 96.2 H MCH 31.8 MCHC 33.1 RDW Std Deviation 48.0 H RDW Coeff of Bartolome 13.4 Plt Count 252 MPV 11.2 Immature Gran % (Auto) 0.200 Neut % (Auto) 84.6 H Lymph % (Auto) 9.6 L Moody % (Auto) 5.4 Eos % (Auto) 0.0 Baso % (Auto) 0.2 Absolute Neuts (auto) 8.2 H Absolute Lymphs (auto) 0.93 Nucleated RBC % 0 Sodium 141 Potassium 4.5 Chloride 100 Carbon Dioxide 29.3 Anion Gap 12 BUN 29 H Creatinine 1.03 Estim Creat Clear Calc 66.94 Est GFR (MDRD) Non-Af 77 BUN/Creatinine Ratio 27.7 H Glucose 121 H Lactic Acid 2.7 H* Calcium 9.8 NT pro BNP II 2448 H ABG Data ABG results: ABG 05/14/24 09:49 Specimen Type ART Sample Site R Radial pH 7.43 Bicarbonate Actual 30.7 H Total CO2 32 Base Excess 6 H O2 Saturation 96 O2 % 6.0 ABG pCO2 46.2 H ABG pO2 84 Scar Test Positive O2 Delivery Device Cannula Vent Mode Not entered Radiography Chest X-Ray - ED: 1 View, Read by ED Physician and Read by Radiologist Diagnostic Testing: Clinical Impression(s) from Imaging Studies Chest X-Ray 05/14/24 09:25 IMPRESSION: Bibasilar atelectasis or pneumonia. Reading Location: [facility] Management Discussion w/another healthcare provider: Hospitalist and packing room worker/Case management Discharge Plan Dx/Rx/DC Orders Clinical Impression: SOB (shortness of breath), COPD exacerbation, CHF (congestive heart failure), Hypotension Disposition Disposition: Acute Care Hospital [facility]
[2024-05-14] MEDS: Ipratropium/Albuterol Sulfate 3 ML AMPUL.NEB INHALATION ×2 (09:20→19:03)
--- NOTE | 2024-05-14 09:25 | RAD_ITS ---
EXAM: XR Chest, 1 View CLINICAL INDICATION: SHORTNESS OF BREATH TECHNIQUE: Frontal view of the chest. COMPARISON: No relevant prior studies available. FINDINGS: LUNGS AND PLEURAL SPACES: Bibasilar atelectasis or pneumonia. No pneumothorax. HEART: Unremarkable. No cardiomegaly. MEDIASTINUM: Unremarkable. Normal mediastinal contour. BONES/JOINTS: Unremarkable. No acute fracture. RAD/Chest 1 View (Portable) IMPRESSION: Bibasilar atelectasis or pneumonia. Reading [facility]
[2024-05-14 09:51] LABS: Anion Gap 12 (5-15); BUN 29 mg/dL (4-19); BUN/Creat Ratio 27.7 RATIO (10-20); Calcium,Total 9.8 mg/dL (7.6-11.0); Carbon Dioxide 29.3 mmol/L (21.0-32.0); Chloride 100 mmol/L (98-108); Creatinine, Serum 1.03 mg/dL (0.70-1.20); EST Glomerular Filtration Rate 77 (>60); Estimated Creatinine Clearance 66.94 ml/min (50-250); Glucose 121 mg/dL (70-99); Potassium 4.5 mmol/L (3.3-5.1); Sodium Level 141 mmol/L (133-145)
[2024-05-14 09:53] LABS: Allen Test Positive; Base Excess 6 mmol/L (-2 to +2); Bicarbonate 30.7 mmol/L (22-26); Blood Gas Specimen Type ART; Mode Not entered; O2 Delivery Device Cannula; PO2 84 mmHG (75-100); SITE R Radial; SO2 96 % (95-99); Total Carbon Dioxide 32 mmol/L; pCO2 46.2 mmHg (35-45); pH 7.43 (7.35-7.45)
[2024-05-14] MEDS: Acetaminophen 325 MG Tablet 650 MG PO (09:53)
[2024-05-14 09:58] LABS: Lactic Acid 2.7 mmol/L (0.0-2.0)
[2024-05-14 10:03] LABS: Absolute Lymphocyte Count 0.93 X10^3/uL (0.83-4.51); Absolute Neutrophil Count 8.2 X10^3/uL (2.0-7.7); Basophil# 0.02 X10^3/uL; Basophil% 0.2 % (0-1); Hematocrit 48.4 % (40-54); Lymphocyte # 0.93 X10^3/ul (0.83-4.51); Lymphocyte % 9.6 % (19-41); Mean Corp Hgb Conc 33.1 g/dL (32-36); Mean Corpuscular Hgb 31.8 pg (27.0-32.0); Mean Corpuscular Volume 96.2 fL (80-94); Mean Platelet Vol. 11.2 fl (6.2-12.0); Monocyte# 0.52 X10^3/uL; Monocyte% 5.4 % (0-10); NRBC Flagged by Analyzer 0 % (0-5); Neutrophil # 8.16 X10^3/uL (2.7-7.7); Neutrophil % 84.6 % (47-70); Platelet Count 252 K/mm3 (150-450); RBC Distribution Width CV 13.4 % (11.6-14.6); Red Blood Count 5.03 M/mm3 (4.6-6.2); White Blood Count 9.7 K/mm3 (4.4-11.0)
[2024-05-14 10:05] LABS: Pro- Brain NATRIURETIC PEPTIDE 2448 pg/mL (<=900)
[2024-05-14] MEDS: 0.9% Normal Saline (500mL Bag) 500 ML 999 ML IV (12:52)
--- NOTE | 2024-05-14 13:57 | HP.PCM.HOS_ITS ---
HPI - General General Date of Admission: 05/14/24 HPI Narrative REGGIE LIANG, is a 73 M who presents to the hospital with reported shortness of breath in the setting of known pulmonary hypertension. He was recently admitted to the hospital for COPD exacerbation and was found to possibly have chronic pulmonary embolisms leading to his pulmonary hypertension. His last echocardiogram had an EF of 70% but they are not able to estimate right ventricular systolic dysfunction at that time no previous echoes have demonstrated his RVSP at around 60 to 70 mmHg. I think his recurrent issues with shortness of breath are related to the fact that he is inconsistent with his Lasix, he does not follow a fluid restriction, and he takes his Eliquis once a day instead of twice a day because of the cost. I think all these together have led to incomplete treatment of his of his conditions and he does admit to not taking his Lasix last evening. We did attempt to discharge from the ER however he became lightheaded and dizzy so we will monitor for observation COUNTS INCLUDE 234 BEDS AT THE [facility] Medical History COPD (chronic obstructive pulmonary disease) Aortic root dilatation Pulmonary embolism Alcohol abuse Mass of left lung Atrial fibrillation with RVR Inferior vena caval thrombosis Nodule of left lung Left adrenal mass Bilateral pulmonary embolism Tobacco dependence DVT (deep venous thrombosis) Arthritis Diarrhea SOB (shortness of breath) Home Medications ?Medication ?Instructions ?Recorded ?Last Taken ?Type diltiazem HCl 120 mg 120 mg PO DAILY BLOOD PRESSU RE 11/21/23 05/10/24 Rx capsule,extended release 24 hr #90 caps (Cardizem CD) metoprolol succinate 50 mg 50 mg PO DAILY BLOOD PRESSU RE #90 11/21/23 05/10/24 Rx tablet,extended release 24 hr tabs guaifenesin 1,200 mg tablet, 1,200 mg PO BID PRN jerryge stion 05/11/24 05/10/24 History extended release 12 hr (Mucinex) albuterol sulfate 90 mcg/actuation 2 puff inhalation Q 6H PRN 05/13/24 Unknown Rx aerosol inhaler shortness of breath or wheez ing #6.7 grams apixaban 5 mg tablet (Eliquis) 5 mg PO BID #60 tabs Unknown Rx furosemide 40 mg tablet (Lasix) 40 mg PO BID #60 tabs 05/13/24 Unknown Rx ipratropium 0.5 mg-albuterol 3 mg 3 ml inhalation 4XD #1,120 mL 05/13/24 Unknown Rx (2.5 mg base)/3 mL nebulization soln potassium chloride 10 mEq 20 meq (2 x 10 mEq) PO DAILY #60 05/13/24 Unknown Rx tablet,extended release tabs prednisone 20 mg tablet 40 mg (2 x 20 mg) PO DAILY # 14 tabs 05/13/24 Unknown Rx Allergy/AdvReac Type Severity Reaction Status Date / Time No Known Allergies Allergy Verified 05/14/24 09:03 Family History Other Arthritis Dementia Heart disease Hypertension Surgical History History of bilateral knee replacement History of hernia surgery Social History household members: spouse Smoking Status: Light Smoker (<10/day) Tobacco: How many years used: 15 alcohol intake: former details: 3 weeks ago substance use type: does not use caffeine: No what type of physical activity do you participate in: none ROS Constitutional Constitutional: Denies chills, fatigue, fever(s) or malaise Eyes Eyes: Denies blurry vision ENT HEENT: Denies headache(s) or nasal discharge Cardiovascular Cardiovascular: Reports dyspnea on exertion; Denies chest pain or syncope Respiratory/Chest Respiratory/Chest: Reports shortness of breath at rest; Denies cough or shortness of breath with exertion Gastrointestinal Gastrointestinal: Denies constipation, diarrhea, nausea or vomiting Genitourinary Genitourinary: Denies dysuria Neurologic Neurologic: Denies focal weakness, numbness or tremor(s) Psychiatric Psychiatric: Denies anxiety or depression Vital Signs Vital Signs Vital Signs: 05/14/24 09:03 05/14/24 09:07 05/14/24 09:10 Temperature 100.4 F H 100.4 F H Temperature Source Oral Oral Pulse Rate 116 H 112 H Respiratory Rate 22 H 24 H Respiratory Effort Short of Breath Respiratory Depth Normal Respiratory Pattern Tachypnea Blood Pressure 150/100 H 123/91 H Blood Pressure Mean 116 101 Pulse Ox 94 92 Oxygen Delivery Method Nasal Cannula Nasal Cannula Nasal Cannula Oxygen Flow Rate (L/min) 5 6 6 05/14/24 09:23 05/14/24 09:35 05/14/24 09:35 Temperature Temperature Source Pulse Rate 88 Respiratory Rate 26 H Respiratory Effort Respiratory Depth Respiratory Pattern Tachypnea Blood Pressure Blood Pressure Mean Pulse Ox 96 Oxygen Delivery Method Room Air Nasal Cannula Oxygen Flow Rate (L/min) 6 05/14/24 09:57 05/14/24 10:07 05/14/24 11:00 Temperature 100.2 F H 99.9 F H Temperature Source Oral Oral Pulse Rate 64 97 Respiratory Rate 16 22 H Respiratory Effort Respiratory Depth Respiratory Pattern Blood Pressure 111/78 99/7 L Blood Pressure Mean 89 37 Pulse Ox 94 98 95 Oxygen Delivery Method Room Air Room Air Nasal Cannula Oxygen Flow Rate (L/min) 2 05/14/24 13:00 Temperature Temperature Source Pulse Rate 76 Respiratory Rate 25 H Respiratory Effort Respiratory Depth Respiratory Pattern Blood Pressure 83/69 L Blood Pressure Mean 73 Pulse Ox 90 Oxygen Delivery Method Room Air Oxygen Flow Rate (L/min) Weight Weight: 160 lb 14.999 oz Body Mass Index (BMI) 21.8 Physical Exam Narrative General: Alert, Oriented x3, Cooperative, No apparent distress HEENT: Atraumatic, PERRLA, EOMI, Normocephalic Oral: Moist Mucosa Neck: Supple, No JVD Lungs: Diminished, Normal air movement, No rhonchi, wheeze, No rales Cardiovascular: Regular rate, Regular Rhythm, Normal S1, Normal S2, No murmurs Abdomen: Soft, Non Tender, Non-Distended, No Hepato-splenomegaly Extremities: No edema, Capillary Refill Less than 3 Seconds Skin: No rashes, No breakdown Musculoskeletal: No Tenderness to Palpation of Joints or Extremities Neurological: No focal neurological deficits, Motor Exam 5/5 strength throughout, Sensory exam intact to light touch and pain Psych/Mental Status: Normal Affect, Appropriate Results Lab / Micro Data 05/14/24 09:08 05/14/24 09:08 Labs: Laboratory Results - last 24 hr 05/14/24 09:08: WBC 9.7, RBC 5.03, Hgb 16.0, Hct 48.4, MCV 96.2 H, MCH 31.8, MCHC 33.1, RDW Std Deviation 48.0 H, RDW Coeff of Bartolome 13.4, Plt Count 252, MPV 11.2, Immature Gran % (Auto) 0.200, Neut % (Auto) 84.6 H, Lymph % (Auto) 9.6 L, [place] % (Auto) 5.4, Eos % (Auto) 0.0, Baso % (Auto) 0.2, Absolute Neuts (auto) 8.2 H, Absolute Lymphs (auto) 0.93, Nucleated RBC % 0, Sodium 141, Potassium 4.5, Chloride 100, Carbon Dioxide 29.3, Anion Gap 12, BUN 29 H, Creatinine 1.03, Estim Creat Clear Calc 66.94, Est GFR (MDRD) Non-Af 77, BUN/Creatinine Ratio 27.7 H, Glucose 121 H, Lactic Acid 2.7 H*, Calcium 9.8, NT pro BNP II 2448 H Micro: Microbiology 05/14/24 09:08 Mucosa - Nose SARS-CoV-2, Influenza & RSV (PCR) - Final ABG Data ABG results: ABG 05/14/24 09:49 Specimen Type ART Sample Site R Radial pH 7.43 Bicarbonate Actual 30.7 H Total CO2 32 Base Excess 6 H O2 Saturation 96 O2 % 6.0 ABG pCO2 46.2 H ABG pO2 84 Scar Test Positive O2 Delivery Device Cannula Vent Mode Not entered Imaging Radiology Impression Chest X-Ray 05/14/24 09:25 IMPRESSION: Bibasilar atelectasis or pneumonia. Reading Location: [facility] Assessment & Plan Assessment/Plan (1) COPD exacerbation: (2) CHF (congestive heart failure): PLAN: Plan 1. Continued COPD exacerbation from his previous admission as well as exacerbation of his pulmonary hypertension with intermittent hypoxia requiring oxygen ? Continue with his home p.o. Lasix 40 mg p.o. twice daily ? Continue with his home prednisone dosage from discharge yesterday ? Continue with inhalers ? No need to repeat echo ? Hold off of any IV fluids ? Continue with the fluid restriction ? His proBNP is elevated but it is less than what it was on his admission ? He is denying any chest pain ? Lactic acid is elevated but this is likely related to his heart failure therefore he does not have sepsis and he has no source of infection 2. Pulmonary hypertension/essential HTN/history of VTE with possible chronic pulmonary embolism ? Continue with his Lasix ? Continue with his Eliquis ? Will hold his Cardizem ? Will wait for his medications to be further verified ? Will monitor and make adjustments as necessary DVT: Storm 75 minutes was spent on direct patient care, including documentation as well as chart review and collaboration with colleagues Charges/Coding Visit Charges Inpatient E&M: 02770 Init Hosp L3
[2024-05-14] MEDS: predniSONE 20 MG Tablet PO (18:53)
--- NOTE | 2024-05-14 19:13 | CM.ED ---
Social work Reason for referral: possible home O2 Referral source: Dr. Reece CAREY was consulted for possibility of patient needing O2 at home. This SW entered patient's room, introducing self and role at [facility]. Patient's daughter, Diamond, was present at bedside. SW informed patient that patient currently did not meet criteria for O2 to be covered by patient's insurance (patient's O2 was 91% at rest and 90% with ambulation). Patient's daughter stated patient's O2 was down in the 60's prior to coming in. Patient stated having medication now for patient's nebulizer, which was a concern patient mentioned to this SW upon initial admission assessment completed on 05/11/24. When SW asked, patient stated not being interested in applying for Medicaid at this time. Patient's daughter requested to know what the self-pay rate for O2 would be, so this SW called Sulaiman, [place] liaison [place] [facility] [place] Sulaiman stated that an O2 concentrator is $270 per month plus an extra $35 per month for portability if insurance does not cover. Patient intended to re-ambulate, but patient became hypotensive and unable to stand without becoming dizzy. Decision was made to admit patient for observation; handoff to acute RNCM/SW team for discharge planning needs that may arise. Christen Boswell, FUR FEEDER, EXPANSION JOINT FINISHER
[2024-05-14] MEDS: APIXABAN 5 MG TABLET PO (21:30)
[2024-05-15] MEDS: Ipratropium/Albuterol Sulfate 3 ML AMPUL.NEB INHALATION ×2 (00:55→07:27)
[2024-05-15 00:56] VITALS: PULSE 99; RESP 18
[2024-05-15 04:04] VITALS: BP 123/85; PULSE 86; RESP 18; TEMP 36.2; O2SAT 96
[2024-05-15 07:50] VITALS: PULSE 94; RESP 17
[2024-05-15 07:51] VITALS: BP 123/89; PULSE 85; RESP 17; TEMP 37; O2SAT 95
[2024-05-15] MEDS: predniSONE 20 MG Tablet PO (07:59)
[2024-05-15] MEDS: Furosemide 40 MG Tablet PO (08:13)
[2024-05-15] MEDS: APIXABAN 5 MG TABLET PO (08:14)
--- NOTE | 2024-05-15 09:07 | PCM.DC ---
Discharge Instructions Diet Discharge Diet: Low fat / Low cholesterol and 6 Cup Fluid Restriction DC O2, CPAP, BIPAP needs Home O2 Discharge instructions: No Dressing / Incision Discharge Activity: Return to Normal Activity Dressing / Incision Call your doctor if you observe: Fever of 101 or Higher, Shortness of breath, Dizziness, Fainting spells, Swelling in the ankles, Chest pain and Increased palpitations (irregular heartbeat) Follow Up Care Test Results: Test results from this visit will be discussed in further detail at your follow-up appointment, if applicable. Discharge Plan Admission Admit Date/Time: 05/14/24 13:57 Attending Provider: Taran Lucas Primary Care Provider: Lilian Rossi Discharge Orders/Prescriptions Prescriptions: Continued guaifenesin [Mucinex] 1,200 mg tablet extended release 12hr 1,200 mg PO BID PRN (Reason: congestion) ipratropium-albuterol 0.5 mg-3 mg(2.5 mg base)/3 mL Solution For Nebulization 3 ml inhalation 4XD Qty: 1120 0RF Eliquis 5 mg Tablet 5 mg PO BID Qty: 60 0RF potassium chloride 10 mEq tablet extended release 20 meq PO DAILY Qty: 60 0RF prednisone 20 mg tablet 40 mg PO DAILY Qty: 14 0RF Rx Instructions: 1 tablet twice a day for 3 days, then 1 tablet daily until finished albuterol sulfate 90 mcg/actuation HFA aerosol inhaler 2 puff inhalation Q6H PRN (Reason: shortness of breath or wheezing) Qty: 6.7 0RF diltiazem HCl [Cardizem CD] 120 mg capsule,extended release 24hr 120 mg PO DAILY Qty: 90 3RF metoprolol succinate 50 mg tablet extended release 24 hr 50 mg PO DAILY Qty: 90 3RF Changed furosemide [Lasix] 40 mg tablet 40 mg PO DAILY Qty: 60 0RF Rx Instructions: 1 tablet in the morning, 1 tablet mid afternoon daily Referrals / Follow Up: Lilian Rossi MD [Primary Care Provider] - Within 1 Week Angella Mohr NP, LINUX SYSTEMS ENGINEER-C [Med Staff - [facility]] - 05/25/24 Disposition Disposition (needs filled in before D/C Order can be placed): Home, Self Care
[2024-05-15 10:31] VITALS: O2SAT 87; O2SAT 92; O2SAT 94
--- NOTE | 2024-05-15 10:37 | NURSING ---
Dr. Lucas aware of walking pulse ox results
--- NOTE | 2024-05-15 10:39 | PCM.PN.BLA ---
Progress Note I have reviewed the oxygen testing, and this patient qualifies for the home equipment and portability. The patient is mobile in the home and the community.
[2024-05-15] MEDS: levoFLOXacin 750 MG Tablet PO (11:42)
[2024-05-15 12:00] VITALS: BP 116/84; PULSE 98; RESP 16; TEMP 36.6; O2SAT 92
--- NOTE | 2024-05-15 13:05 | DS.PCM_ITS ---
Providers Date of Admission: 05/14/24 Primary Care Physician: Dr. Lilian Rossi MD Reason For Visit: PULM HTN Diagnosis Discharge Diagnosis (1) COPD exacerbation: Status: Chronic Code(s): J44.1 - Chronic obstructive pulmonary disease with (acute) exacerbation (2) CHF (congestive heart failure): Status: Acute Code(s): I50.9 - Heart failure, unspecified Medications at Discharge Home Medications diltiazem HCl 120 mg capsule,extended release 24 hr (Cardizem CD) 120 mg PO DAILY BLOOD PRESSURE #90 caps 11/21/23 metoprolol succinate 50 mg tablet,extended release 24 hr 50 mg PO DAILY BLOOD PRESSURE #90 tabs 11/21/23 guaifenesin 1,200 mg tablet, extended release 12 hr (Mucinex) 1,200 mg PO BID PRN congestion 05/11/24 albuterol sulfate 90 mcg/actuation aerosol inhaler 2 puff inhalation Q6H PRN shortness of breath or wheezing #6.7 grams 05/13/24 apixaban 5 mg tablet (Eliquis) 5 mg PO BID #60 tabs 05/13/24 ipratropium 0.5 mg-albuterol 3 mg (2.5 mg base)/3 mL nebulization soln 3 ml inhalation 4XD #1,120 mL 05/13/24 potassium chloride 10 mEq tablet,extended release 20 meq (2 x 10 mEq) PO DAILY #60 tabs 05/13/24 prednisone 20 mg tablet 40 mg (2 x 20 mg) PO DAILY #14 tabs 05/13/24 furosemide 40 mg tablet (Lasix) 40 mg PO DAILY #60 tabs 05/15/24 levofloxacin 750 mg tablet 750 mg PO DAILY 6 days #6 tabs 05/15/24 Hospital Course Operations None Procedures None Summary of Care Provided Minutes Spent on Discharge: 33 Hospital Course: Per HPI: REGGIE LIANG, is a 73 M who presents to the hospital with reported shortness of breath in the setting of known pulmonary hypertension. He was recently admitted to the hospital for COPD exacerbation and was found to possibly have chronic pulmonary embolisms leading to his pulmonary hypertension. His last echocardiogram had an EF of 70% but they are not able to estimate right ventricular systolic dysfunction at that time no previous echoes have demonstrated his RVSP at around 60 to 70 mmHg. I think his recurrent issues with shortness of breath are related to the fact that he is inconsistent with his Lasix, he does not follow a fluid restriction, and he takes his Eliquis once a day instead of twice a day because of the cost. I think all these together have led to incomplete treatment of his of his conditions and he does admit to not taking his Lasix last evening. We did attempt to discharge from the ER however he became lightheaded and dizzy so we will monitor for observation Hospital Course: 1. Continued COPD exacerbation from his previous admission as well as exacerbation of pulmonary hypertension with intermittent hypoxia requiring oxygen?73-year-old male presented to the hospital the day after his discharge for COPD exacerbation because of increasing shortness of breath and hypoxia at home. He was intermittently hypoxic here in the hospital and the plan was to discharge him from the ER however he became hypotensive and lightheaded so he was admitted for observation. He had increased his Lasix to 40 mg p.o. twice daily however he was not consistently taking the Lasix 40 daily so I do think that the increase is likely what caused his hypotension. His shortness of breath is a combination of his pulmonary hypertension which has been inadequately treated due to noncompliance in combination with his COPD exacerbation. With incentive spirometry and acapella he was bringing up some sputum so I elected to cover him with Levaquin despite the lack of leukocytosis and fever. Today on the day of discharge he did well with the fluid restriction, blood pressures remained stable and I decreased his Lasix from 40 mg p.o. twice daily to daily dosing and encouraged him to be consistent with this dosing while also encouraging him to maintain a 1500 cc fluid restriction. He is to see his primary care doctor at some point this week as well as his animal groomer on May 25. No sepsis on admission or during the course of his admission. 2. Pulmonary hypertension, essential hypertension, history of VTE with possible chronic pulmonary embolisms are all chronic medical conditions which complicate his care. His home medications were continued where appropriate Physical Exam Narrative General: Alert, Oriented x3, Cooperative, No apparent distress HEENT: Atraumatic, PERRLA, EOMI, Normocephalic Oral: Moist Mucosa Neck: Supple, No JVD Lungs: Diminished, Normal air movement, No rhonchi, no wheeze, No rales Cardiovascular: Regular rate, Regular Rhythm, Normal S1, Normal S2, No murmurs Abdomen: Soft, Non Tender, Non-Distended, No Hepato-splenomegaly Extremities: No edema, Capillary Refill Less than 3 Seconds Skin: No rashes, No breakdown Musculoskeletal: No Tenderness to Palpation of Joints or Extremities Neurological: No focal neurological deficits, Motor Exam 5/5 strength throughout, Sensory exam intact to light touch and pain Psych/Mental Status: Normal Affect, Appropriate Weight / BMI Weight Weight: 159 lb Body Mass Index (BMI) 21.5 ABG / Lab / Microbiology Data 05/14/24 09:08 05/14/24 09:08 Microbiology: Microbiology 05/14/24 09:08 Mucosa - Nose SARS-CoV-2, Influenza & RSV (PCR) - Final D/C Instructions Discharge Diet: Low fat / Low cholesterol and 6 Cup Fluid Restriction Call your doctor if you observe: Fever of 101 or Higher, Shortness of breath, Dizziness, Fainting spells, Swelling in the ankles, Chest pain and Increased palpitations (irregular heartbeat) DC O2, CPAP, BIPAP Needs Home O2 Discharge instructions: No Meaningful Use Info Meaningful Use Meaningful Use Diagnoses (Choose all that apply): None applicable Ischemic Stroke Statin Dosing Therapy Reference: STATIN DOSE THERAPY REFERENCE: * Patients > 75 years receive moderate or high dose statin therapy. * Patients 75 years or YOUNGER should receive HIGH intensity statin dose unless contraindicated. You will be required to document reason for non-treatment if statin daily dose does not meet guidelines. HIGH DOSE STATIN THERAPY DAILY Atorvastatin > than or = to 40 mg Rosuvastatin > than or = to 20 mg Amlodipine + Atorvastatin > than or = to 2.5/40 mg Ezetimibe + Simvastatin 10/80 mg Simvastatin 80mg Discharge Plan Admission Admit Date/Time: 05/14/24 13:57 Attending Provider: Taran Lucas Primary Care Provider: Lilian Rossi Discharge Orders/Prescriptions Prescriptions: New levofloxacin 750 mg Tablet 750 mg PO DAILY 6 Days Qty: 6 0RF Continued guaifenesin [Mucinex] 1,200 mg tablet extended release 12hr 1,200 mg PO BID PRN (Reason: congestion) ipratropium-albuterol 0.5 mg-3 mg(2.5 mg base)/3 mL Solution For Nebulization 3 ml inhalation 4XD Qty: 1120 0RF Eliquis 5 mg Tablet 5 mg PO BID Qty: 60 0RF potassium chloride 10 mEq tablet extended release 20 meq PO DAILY Qty: 60 0RF prednisone 20 mg tablet 40 mg PO DAILY Qty: 14 0RF Rx Instructions: 1 tablet twice a day for 3 days, then 1 tablet daily until finished albuterol sulfate 90 mcg/actuation HFA aerosol inhaler 2 puff inhalation Q6H PRN (Reason: shortness of breath or wheezing) Qty: 6.7 0RF diltiazem HCl [Cardizem CD] 120 mg capsule,extended release 24hr 120 mg PO DAILY Qty: 90 3RF metoprolol succinate 50 mg tablet extended release 24 hr 50 mg PO DAILY Qty: 90 3RF Changed furosemide [Lasix] 40 mg tablet 40 mg PO DAILY Qty: 60 0RF Rx Instructions: 1 tablet in the morning, 1 tablet mid afternoon daily Referrals / Follow Up: Lilian Rossi MD [Primary Care Provider] - Within 1 Week Angella Mohr NP, TRAINING PROGRAM DEVELOPER-C [Med Staff - [facility]] - 05/25/24 Disposition Disposition (needs filled in before D/C Order can be placed): Home, Self Care Charges/Coding Visit Charges Inpatient E&M: 07592 Disch Hosp >30min
== END 2024-05-15 09:11 | disposition home or self-care (01) ==
LOC: ED 14:00 → PCU 16:07
PROVIDERS: Admitting Provider Family Medicine; Emergency Provider Emergency Medicine; PCP Internal Medicine; Visit Provider Family Medicine
DX: I11.0 Hypertensive heart disease with heart failure (principal); I27.20 Pulmonary hypertension, unspecified; I50.31 Acute diastolic (congestive) heart failure; J44.1 Chronic obstructive pulmonary disease with (acute) exacerbation; I48.91 Unspecified atrial fibrillation; E87.29 Other acidosis; F17.200 Nicotine dependence, unspecified, uncomplicated; I95.9 Hypotension, unspecified; J98.11 Atelectasis; R73.9 Hyperglycemia, unspecified; Z79.01 Long term (current) use of anticoagulants; Z86.711 Personal history of pulmonary embolism; Z86.718 Personal history of other venous thrombosis and embolism; Z79.899 Other long term (current) drug therapy
CPT/HCPCS: 36415; 36600; 71045; 80048; 82803; 83605; 83880; 85025; 87040; 87631; 93005; 94640; 94668; 96360; 96361; 99221; 99252; 99285; A4216; G0378; G0463

== ENCOUNTER → 2024-10-20 | Outpatient (CLI) | payer MEDICARE, BC, SELFPAY ==
--- NOTE | 2024-10-20 07:36 | CT_ITS ---
PROCEDURE: CHEST WITHOUT CONTRAST 10/20/2024 REASON FOR EXAM: FOLLOWING IRREGULAR DENSITY LEFT UPPER LOBE TECHNIQUE: Chest CT without contrast. Coronal and Sagittal reconstruction series were provided. One or more dose reduction techniques were used (e.g., Automated exposure control, adjustment of the mA and/or kV according to patient size, use of iterative reconstruction technique RADIATION DOSE SUMMARY: CTDlvol: 7.9 mGy DLP: 364 mGycm COMPARISON: May 14, 2024, May 11, 2024 FINDINGS: Hardware: None Lymph nodes: The mildly enlarged lymph nodes are normal-size. These are likely reactive. Heart and Vasculature: The heart is normal size. No pericardial effusion. Aorta is atherosclerotic. Coronary Artery Calcifications: Present Lungs and Airways: 3.6 mm nodular focus associated with linear scarring favored to represent scarring in general (image 24). Additional scarring is more linear posteriorly of the left upper lobe on image 32. Minimal linear scarring of the lateral segment right middle lobe and posterior lower lobes. No consolidation or mass. Pleura: No pleural effusion or pneumothorax. Upper Abdomen: Small cysts in the liver. These are benign. Bones: Disc space narrowing, marginal endplate spurring upper lumbar spine mainly on the left side associated with thoracolumbar curvature directed to the right.. CT/Chest without Contrast IMPRESSION: 1. 3.6 mm nodule with some associated scarring left upper lobe is favored to r epresent scarring. No change dating back to July 17, 2023 when measured similarly. ACR Fleischner Society recommendations (MacM ahon, et al. Radiology 2017; 284(1): 228-43) suggest the following: No need for further follow-up for patients with high or low risk of lung cancer. Reading Location: [id number]
== END | disposition home or self-care (01) ==
LOC: CT 07:34
PROVIDERS: PCP Internal Medicine; Referring Provider Nurse Practitioner Family; Visit Provider Nurse Practitioner Family
DX: R93.89 Abnormal findings on diagnostic imaging of other specified body structures (principal)
CPT/HCPCS: 71250